=== PATIENT | female | born 1985 | race African-American/Black ===

== ENCOUNTER 2016-09-16 21:38 | Emergency (ER) | payer OTHER ==
[~2016-09-16] VITALS: Ht 157.5 cm; Wt 68.0 kg
[~2016-09-16 21:38] MED LIST: ALBUTEROL SULF8.5 GM INH; ATARAX25 MG ORAL; AUGMENTIN 875-1 EAC1 ORAL; AZITHROMYCIN250 MG ORAL; BENADRYL25 MG PO; BENTYL10 MG ORAL; CHERATUSSIN AC118 ML PO; FERROUS SULFAT325 MG ORAL; IBUPROFEN600 MG ORAL; IBUPROFEN800 M1 PO; IBUPROFEN800 MG ORAL; MELOXICAM15 MG PO; NKM; NORCO 5-325 TA1 EACH ORAL; ORTHO NOVUM ORAL; PERCOCET 5-3251 EACH ORAL; PHENTERMINE H37.5 MG PO; PREDNISONE20 MG ORAL; RANITIDINE HCL150 MG ORAL; REGLAN10 MG ORAL; TYLENOL EXTRA500 MG ORAL; VITAMIN B-1100 MG ORAL; ZANTAC150 MG ORAL; ZITHROMAX250 MG ORAL; ZOFRAN ODT4 MG ORAL; ZOFRAN4 MG ORAL
[2016-09-16 21:53] VITALS: BP 158/100
[2016-09-16] MEDS ORDERED: AMOXICILLIN500 MG ORAL (22:12)
[2016-09-16] MEDS ORDERED: HYDROCODON-ACE1 EA15 ORAL (22:12)
--- NOTE | 2016-09-16 22:13 | Emergency Room Report ---
History of Present Illness General Chief Complaint: Toothache Source: Patient Present Illness HPI Is a 31-year-old female who presents with chief complaint of dental pain. Localized to the right upper second molar. Pain is 10 out of 10. Onset for last day. Radiating to her ear. She fell her tooth being loose. Worse with cold and hot liquid. She said she has an appointment the dentist tomorrow. Denies any other complaint. [id number] medication not helping. Allergies: Coded Allergies: No Known Allergies (Unverified , 04/13/13) Patient History Past Medical History: see triage record, old chart reviewed Past Surgical History: none Pertinent Family History: none Social History: Reports: smoking Last Menstrual Period: 09/01/16 Now: No Immunizations: other Reviewed Nursing Documentation: PMH: Agreed, PSxH: Agreed Nursing Documentation-PMH Past Medical History: No History, Except For Hx Cardiac Problems: No Hx Hypertension: No Hx Pacemaker: No Hx Asthma: No Hx COPD: No Hx Diabetes: No Hx Cancer: No - APPENDECTOMY Hx Gastrointestinal Problems: Yes - Pancreatitis Hx Dialysis: No Hx Neurological Problems: No Hx Cerebrovascular Accident: No Hx Seizures: No Review of Systems Eye: Denies: blurred vision, eye pain ENT: Denies: ear pain, nose congestion, throat swelling Respiratory: Denies: cough, shortness of breath Cardiovascular: Denies: chest pain, palpitations Gastrointestinal: Denies: abdominal pain, diarrhea, nausea, vomiting Musculoskeletal: Denies: back pain, joint pain Skin: Denies: rash Neurological: Denies: headache, numbness Endocrine: Denies: increased thirst, increased urine Hematologic/Lymphatic: Denies: easy bruising All Other Systems: negative except mentioned in HPI Physical Exam Vital Signs Date Time Temp Pulse Resp B/P Pulse Ox O2 Delivery O2 Flow Rate FiO2 09/16/16 21:49 98.2 77 16 158/100 99 Room Air vitals with hypertension Sp02 EP Interpretation: reviewed, normal General Appearance: well appearing, no apparent distress, alert Head: normocephalic, atraumatic Eyes: bilateral eye EOMI, bilateral eye PERRL ENT: hearing grossly normal, normal pharynx, other - Oropharynx: Dental decay over the first and second right upper molars. Percussive tenderness. No abscess noted. Neck: full range of motion, supple, no meningismus Respiratory: chest non-tender, lungs clear, normal breath sounds Cardiovascular #1: regular rate, rhythm, no murmur Gastrointestinal: normal bowel sounds, non tender, no mass, no organomegaly, no bruit, non-distended Musculoskeletal: back normal, gait/station normal, normal range of motion Psychiatric: mood/affect normal Skin: warm/dry Procedures Additional Procedure Procedure Narrative Procedure: Dental block Indication: Dental pain Description: I did a local dental block with 1% lidocaine without epinephrine. A total of 3 mL injected. Patient tolerated procedure without a problem. Medical Decision Making Diagnostic Impression: Primary Impression: Toothache Additional Impression: Dental abscess ER Course Patient presents with dental pain. We'll put on antibiotics. No evidence of abscess that can be I&D. No evidence of sepsis. We'll discharge him. Last Vital Signs Date Time Temp Pulse Resp B/P Pulse Ox O2 Delivery O2 Flow Rate FiO2 09/16/16 21:49 98.2 77 16 158/100 99 Room Air Status: improved Disposition: HOME, SELF-CARE Condition: Stable Scripts Hydrocodone/Acetaminophen 5-325* (HYDROCODONE/ACETAMINOPHEN 5-325*) 1 Each Tablet 1 TAB ORAL Q6H Y for For Pain, #20 TAB 0 Refills Prov: GARY RICHARDS M.D. 09/16/16 Amoxicillin* (AMOXIL*) 500 Mg Capsule 500 MG ORAL THREE TIMES A DAY, #21 CAP Prov: GARY RICHARDS M.D. 09/16/16 Patient Instructions: Dental Pain Additional Instructions: Followup with dentist BARON. Return if worsening symptoms. GARY RICHARDS M.D. Sep 16, 2016 22:13
[2016-09-16 22:19] VITALS: BP 158/100
== END 2016-09-16 22:19 | disposition home or self-care (01) ==
LOC: EMR 22:00
DX: K04.7 Periapical abscess without sinus (principal); F17.200 Nicotine dependence, unspecified, uncomplicated
CPT/HCPCS: 99284

== ENCOUNTER 2016-09-26 09:49 | Emergency (ER) | payer OTHER ==
[~2016-09-26] VITALS: Ht 157.5 cm; Wt 68.0 kg
[~2016-09-26 09:49] MED LIST changes: +AMOXICILLIN500 MG ORAL; +HYDROCODON-ACE1 EA15 ORAL
[2016-09-26] MEDS ORDERED: Famotidine 20 MG/ 2ML VIAL IVP ONE (10:30)
[2016-09-26] MEDS ORDERED: Morphine Sulfate 4mg/ml Inj IVP ONE (10:30)
[2016-09-26 10:51] VITALS: BP 136/91
[2016-09-26] MEDS ORDERED: Lidocaine HCl 2% Jelly 5ml Tube TOPIC ONE (11:00)
[2016-09-26 11:05] LABS: BASOPHILS % (AUTO) 1.9 % (0.0-2.0); EOSINOPHILS % (AUTO) 8.1 % (0.0-3.0); MEAN CORPUSCULAR HEMOGLOBIN 29.1 PG (27.0-31.0); MEAN CORPUSCULAR HGB CONC 32.7 G/DL (32.0-36.0); MEAN CORPUSCULAR VOLUME 89 FL (80-99); MEAN PLATELET VOLUME 6.7 FL (6.5-10.1); MONOCYTES % (AUTO) 7.6 % (1.0-10.0); NEUTROPHILS % (AUTO) 53.5 % (45.0-75.0); PLATELET COUNT 317 K/UL (150-450); RED BLOOD COUNT 4.05 M/UL (4.20-5.40); RED CELL DISTRIBUTION WIDTH 11.9 % (11.6-14.8); WHITE BLOOD COUNT 6.5 K/UL (4.8-10.8)
[2016-09-26 11:16] LABS: ALANINE AMINOTRANSFERASE 7 U/L (3-33); ANION GAP 17 (5-15); ASPARTATE AMINO TRANSFERASE 24 U/L (5-40); CARBON DIOXIDE 21 mEQ/L (20-30); CHLORIDE 99 mEQ/L (98-107); CREATININE 0.6 mg/dL (0.5-0.9); GLOMERULAR FILTRATION RATE > 60 mL/min (>60); HEMOLYSIS 125; LIPASE 22 U/L (< 60); POTASSIUM 4.3 mEQ/L (3.4-4.9); SODIUM 137 mEQ/L (135-145); TOTAL PROTEIN 6.6 g/dL (6.6-8.7)
[2016-09-26 11:18] LABS: APPEARANCE,URINE CLEAR
[2016-09-26 11:19] LABS: KETONES,URINE NEGATIVE (NEGATIVE); LEUKOCYTE ESTERASE ,URINE NEGATIVE (NEGATIVE); NITRITE,URINE NEGATIVE (NEGATIVE); PROTEIN,URINE NEGATIVE (NEGATIVE); UROBILINOGEN,URINE NORMAL MG/DL (0.0-1.0)
[2016-09-26] MEDS ORDERED: ZOFRAN ODT4 MG ORAL (11:37)
[2016-09-26] MEDS ORDERED: RANITIDINE HCL150 MG ORAL (11:37)
[2016-09-26] MEDS ORDERED: ACETAMINOPHEN-1 EAC1 ORAL (11:37)
[2016-09-26 11:53] VITALS: BP 128/87
[2016-09-26 11:55] VITALS: BP 128/87
--- NOTE | 2016-09-27 09:23 | Emergency Room Report ---
History of Present Illness General Chief Complaint: Abdominal Pain Source: Patient Present Illness HPI 31-year-old female presents ED any abdominal pain with nausea and vomiting. Patient states she woke up around 4 AM with tooth pain. Took Advil and states shortly after she developed epigastric pain with nausea and vomiting. Pain is sharp. 10 out of 10. Nonradiating. No aggravating relieving factors. Patient states she drank alcohol last night. States she has history of pancreatitis. Denies drug use. No aggravating relieving factors. Denies any other associated symptoms Allergies: Coded Allergies: IBUPROFEN (Verified Allergy, Mild, 09/26/16) Patient History Past Medical History: other - pancreatitis Past Surgical History: none Pertinent Family History: none Social History: Denies: alcohol use, drug use, smoking Last Menstrual Period: 09/01/2016 Now: No Immunizations: UTD Reviewed Nursing Documentation: PMH: Agreed, PSxH: Agreed Nursing Documentation-PMH Past Medical History: No History, Except For Hx Cardiac Problems: No Hx Hypertension: No Hx Pacemaker: No Hx Asthma: No - Bronchitis Hx COPD: No Hx Diabetes: No Hx Cancer: No - APPENDECTOMY Hx Gastrointestinal Problems: Yes - Pancreatitis Hx Dialysis: No Hx Neurological Problems: No Hx Cerebrovascular Accident: No Hx Seizures: No Review of Systems All Other Systems: negative except mentioned in HPI Physical Exam Vital Signs Date Time Temp Pulse Resp B/P Pulse Ox O2 Delivery O2 Flow Rate FiO2 09/26/16 09:52 98.1 70 14 136/91 100 Room Air Sp02 EP Interpretation: reviewed, normal General Appearance: alert, GCS 15, non-toxic, mild distress Head: normocephalic, atraumatic Eyes: bilateral eye PERRL, bilateral eye normal inspection ENT: hearing grossly normal, normal pharynx, no angioedema, normal voice, other - poor dentition. multiple dental caries Neck: normal inspection Respiratory: chest non-tender, lungs clear, normal breath sounds, speaking full sentences Cardiovascular #1: regular rate, rhythm, no edema Gastrointestinal: normal bowel sounds, soft, non-distended, no guarding, no rebound, tenderness Rectal: deferred Genitourinary: no CVA tenderness Musculoskeletal: normal inspection Neurologic: alert, oriented x3, responsive, motor strength/tone normal, sensory intact, speech normal Psychiatric: normal inspection Skin: normal inspection Lymphatic: normal inspection Medical Decision Making Diagnostic Impression: Primary Impression: Tooth pain Additional Impression: Gastritis Qualified Codes: K29.20 - Alcoholic gastritis without bleeding ER Course Hospital Course 31-year-old F presents to ED with epigastric pain with N/V. differential diagnosis: gastritis, cholecystits, pancreatitis Clinical course Patient placed on stretcher. On electronic device monitor. After initial history and physical I ordered labs, IV fluids, morphien, pepcid and Zantac Labs - no leukocytosis, no electrolyte abnormalities, LFTs normal, lipase normal , UA unremarkable Upon reassessment, patient states pain has improved. findings consistent with gastritis I feel this is a highly complex case requiring extensive working including EKG/ Rhythm strip, Xray/CT/US, Blood/urine lab work, repeat exams while in ED, and administration of strong opiates/narcotics for pain control, admission to hospital or close patient follow up. Diagnosis - gastritis, tooth pain Stable and discharged to home with prescriptions for Zantac, zofran, tylenol # 3. Followup with PMD, dentist. Return to ED if symptoms recur or worsen Labs Test 09/26/16 10:35 White Blood Count 6.5 K/UL (4.8-10.8) Red Blood Count 4.05 M/UL (4.20-5.40) Hemoglobin 11.8 G/DL (12.0-16.0) Hematocrit 36.1 % (37.0-47.0) Mean Corpuscular Volume 89 FL (80-99) Mean Corpuscular Hemoglobin 29.1 PG (27.0-31.0) Mean Corpuscular Hemoglobin Concent 32.7 G/DL (32.0-36.0) Red Cell Distribution Width 11.9 % (11.6-14.8) Platelet Count 317 K/UL (150-450) Mean Platelet Volume 6.7 FL (6.5-10.1) Neutrophils (%) (Auto) 53.5 % (45.0-75.0) Lymphocytes (%) (Auto) 29.0 % (20.0-45.0) Monocytes (%) (Auto) 7.6 % (1.0-10.0) Eosinophils (%) (Auto) 8.1 % (0.0-3.0) Basophils (%) (Auto) 1.9 % (0.0-2.0) Urine Color Pale yellow Urine Appearance Clear Urine pH 7.0 (4.5-8.0) Urine Specific M[place] 1.010 (1.005-1.035) Urine Protein Negative (NEGATIVE) Urine Glucose (UA) Negative (NEGATIVE) Urine Ketones Negative (NEGATIVE) Urine Occult Blood Negative (NEGATIVE) Urine Nitrite Negative (NEGATIVE) Urine Bilirubin Negative (NEGATIVE) Urine Urobilinogen Normal MG/DL (0.0-1.0) Urine Leukocyte Esterase Negative (NEGATIVE) Urine HCG, Qualitative Negative Sodium Level 137 mEQ/L (135-145) Potassium Level 4.3 mEQ/L (3.4-4.9) Chloride Level 99 mEQ/L (98-107) Carbon Dioxide Level 21 mEQ/L (20-30) Anion Gap 17 (5-15) Blood Urea Nitrogen 11 mg/dL (7-23) Creatinine 0.6 mg/dL (0.5-0.9) Estimat Glomerular Filtration Rate > 60 mL/min (>60) Glucose Level 102 mg/dL (74-106) Calcium Level 9.0 mg/dL (8.6-10.2) Total Bilirubin < 0.2 mg/dL (0.0-1.2) Aspartate Amino Transf (AST/SGOT) 24 U/L (5-40) Alanine Aminotransferase (ALT/SGPT) 7 U/L (3-33) Alkaline Phosphatase 38 U/L (35-104) Total Protein 6.6 g/dL (6.6-8.7) Albumin 4.4 g/dL (3.5-5.2) Globulin 2.2 g/dL Albumin/Globulin Ratio 2.0 (1.0-2.7) Lipase 22 U/L (< 60) Last Vital Signs Date Time Temp Pulse Resp B/P Pulse Ox O2 Delivery O2 Flow Rate FiO2 09/26/16 11:55 98.1 74 17 128/87 100 Room Air Status: improved Disposition: HOME, SELF-CARE Condition: Stable Scripts Ranitidine Hcl* (ZANTAC*) 150 Mg Tablet 150 MG ORAL TWICE A DAY, #30 TAB Prov: AREN GE M.D. 09/26/16 Ondansetron Odt* (ZOFRAN ODT*) 4 Mg Tab.rapdis 4 MG ORAL Q6H Y for Nausea & Vomiting, #30 TAB 0 Refills Prov: AREN GE M.D. 09/26/16 Acetaminophen With Codeine (T#3) (TYLENOL #3 TAB*) Y Tab 1 TAB ORAL Q8H Y for For Pain, #10 TAB Prov: AREN GE M.D. 09/26/16 Patient Instructions: Gastritis, Adult, Icul-ad-Snyy AREN GE M.D. Sep 27, 2016 09:23
== END 2016-09-26 11:56 | disposition home or self-care (01) ==
LOC: EMR 10:23
DX: K08.89 Other specified disorders of teeth and supporting structures (principal); R11.2 Nausea with vomiting, unspecified; K29.20 Alcoholic gastritis without bleeding; Z88.6 Allergy status to analgesic agent; Z90.89 Acquired absence of other organs; Z87.19 Personal history of other diseases of the digestive system
CPT/HCPCS: 36415; 80053; 81003; 81025; 83690; 85025; 96374; 96375; 99284; J2270; J2405; S0028

== ENCOUNTER 2016-11-16 19:54 | Emergency (ER) | payer OTHER ==
[~2016-11-16] VITALS: Ht 154.9 cm; Wt 72.6 kg
[~2016-11-16 19:54] MED LIST changes: +ACETAMINOPHEN-1 EAC1 ORAL
[2016-11-16] MEDS ORDERED: NKM (20:19)
[2016-11-16 20:23] VITALS: BP 159/112
--- NOTE | 2016-11-16 20:30 | Emergency Room Report ---
History of Present Illness General Chief Complaint: Chest Pain Source: Patient, Medical Record Present Illness HPI Patient presents with complaints of chest pain reports that she's been having left upper chest pain off-and-on for the past 2 days She feels the pain, which is a sharp pain However she feels that she's been having increased headaches as well The headache comes on with the chest pain Patient reports loss of family member recently Otherwise denies any pleurisy denies any vomiting or diarrhea denies any back or flank pain Allergies: Coded Allergies: IBUPROFEN (Verified Allergy, Mild, 09/26/16) Patient History Past Medical History: see triage record Pertinent Family History: none Last Menstrual Period: 11/09/2016 Now: No : 2 Para: 0 Reviewed Nursing Documentation: PMH: Agreed, PSxH: Agreed Nursing Documentation-PMH Hx Cardiac Problems: No Hx Hypertension: No Hx Pacemaker: No Hx COPD: No Hx Diabetes: No Hx Gastrointestinal Problems: Yes - Pancreatitis Hx Dialysis: No Hx Neurological Problems: No Hx Cerebrovascular Accident: No Hx Seizures: No Review of Systems All Other Systems: negative except mentioned in HPI Physical Exam Vital Signs Date Time Temp Pulse Resp B/P Pulse Ox O2 Delivery O2 Flow Rate FiO2 11/16/16 20:12 98.4 87 16 159/112 99 Room Air Sp02 EP Interpretation: reviewed, normal General Appearance: well appearing, no apparent distress Head: normocephalic, atraumatic Eyes: bilateral eye EOMI, bilateral eye PERRL ENT: hearing grossly normal, normal pharynx, TMs + canals normal, uvula midline Neck: full range of motion, supple, no meningismus, no bony tend Respiratory: lungs clear, normal breath sounds, no rhonchi, no respiratory distress, no retraction, no accessory muscle use Cardiovascular #1: normal peripheral pulses, regular rate, rhythm, no edema, no gallop, no JVD, no murmur Gastrointestinal: normal bowel sounds, non tender, soft, no mass, no organomegaly, non-distended, no guarding, no hernia, no pulsatile mass, no rebound Genitourinary: no CVA tenderness Musculoskeletal: normal inspection Neurologic: oriented x3, responsive, information clerk brokerage III-XII nml as tested, motor strength/ tone normal, sensory intact Psychiatric: mood/affect normal Skin: normal color, no rash, warm/dry, palpation normal Lymphatic: normal inspection, no adenopathy Medical Decision Making Diagnostic Impression: Primary Impression: Chest pain Additional Impression: Opiate use ER Course Patient is a fairly complex patient with multiple differential to consideration including but not limited to cardiac cardiopulmonary and vascular emergencies Patient has had recent blood work done here which were negative Does not have any abdominal pain to suggest possible pancreatitis Patient also receiving large quantities of [place] by other provider Along with 2 of the providers at the ER here and concern about the patient's requirement for opiate medications from different providers And she requires close outpatient followup Please note at that time of disposition patient's family at bedside also reports that the patient was also complaining of increased dental pain And this could be potentially contributing to her headache He was notified of the patient has had presentation here previously and reported that she saw a dentist recently for extractions At this time given multiple providers with different opiate medications, pt is recommended for the patient to followup with a primary physician EKG Diagnostic Results Rate: normal Rhythm: NSR ST Segments: no acute changes Rhythm Strip Diag. Results EP Interpretation: yes Rate: 67 Rhythm: NSR, no PVC's, no ectopy Last Vital Signs Date Time Temp Pulse Resp B/P Pulse Ox O2 Delivery O2 Flow Rate FiO2 11/16/16 20:12 98.4 87 16 159/112 99 Room Air Status: unchanged Disposition: HOME, SELF-CARE Condition: Stable Patient Instructions: Nonspecific Chest Pain Additional Instructions: Patient is provided with the discharge instructions notified to follow up with primary doctor in the next 2-3 days otherwise return to the er with any worsening symptoms. Please note that this report is being documented using [employer] technology. This can lead to erroneous entry secondary to incorrect interpretation by the dictating instrument. KIRILL ANGULO D.O. Nov 16, 2016 20:30
[2016-11-16 20:40] VITALS: BP 159/112
--- NOTE | 2016-11-17 11:00 | Cardiology Report ---
APPROVED REPORT EKG Measurement Heart [id number] Normal sinus rhythm Normal ECG
== END 2016-11-16 20:50 | disposition home or self-care (01) ==
LOC: EMR 20:16
DX: R07.9 Chest pain, unspecified (principal); F11.90 Opioid use, unspecified, uncomplicated; R51 Headache; Z88.6 Allergy status to analgesic agent
CPT/HCPCS: 93005; 99283

== ENCOUNTER 2017-02-25 09:37 | Emergency (ER) | payer OTHER ==
[~2017-02-25] VITALS: Ht 157.5 cm; Wt 72.6 kg
[2017-02-25 09:59] VITALS: BP 157/101
[2017-02-25] MEDS ORDERED: Ketorolac 60mg Inj IM ONE (10:00)
[2017-02-25] MEDS ORDERED: Ketorolac 60mg Inj ONE (10:13)
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
[2017-02-25] MEDS ORDERED: NAPROXEN375 MG ORAL (12:11)
[2017-02-25] MEDS ORDERED: NORCO 5-325 TA1 EACH ORAL (12:11)
[2017-02-25] MEDS ORDERED: ROBAXIN500 MG PO (12:11)
[2017-02-25 12:27] VITALS: BP 140/94
--- NOTE | 2017-02-25 15:10 | Diagnostic Imaging Report ---
Indication: Neck Pain Findings: 3 views of the cervical spine were obtained. There is reversal of the lordosis involving the lower part of the cervical spine which may be due to muscle spasm. No acute fracture is identified. There is no definite prevertebral soft tissue swelling. The open-mouth view shows good alignment of the lateral masses with respect to the body of C2. There is narrowing of the C5-6 disc, which is probably degenerative. The study is overexposed. Impression: No acute fracture identified. Suspected muscle spasm. Narrowed C5-6 disc typical location for degenerative disc disease. Technically suboptimal exam
--- NOTE | 2017-02-25 15:10 | Diagnostic Imaging Report ---
Indication: Back pain Findings: 2 views of the thoracic spine were obtained. Normal bony mineralization and alignment are demonstrated. Vertebral body heights and intervertebral disc heights are normal. The posterior elements including the facets are unremarkable. Soft tissues are unremarkable. Impression: Negative thoracic spine series
== END 2017-02-25 12:30 | disposition home or self-care (01) ==
LOC: EMR 10:09
DX: S39.012A Strain of muscle, fascia and tendon of lower back, initial encounter (principal); X50.9XXA Other and unspecified overexertion or strenuous movements or postures, initial encounter; Y92.89 Other specified places as the place of occurrence of the external cause; Z88.6 Allergy status to analgesic agent; M62.838 Other muscle spasm
CPT/HCPCS: 72040; 72070; 96372; 99284

== ENCOUNTER 2017-03-05 12:48 | Emergency (ER) | payer OTHER ==
[~2017-03-05] VITALS: Ht 157.5 cm; Wt 72.6 kg
[~2017-03-05 12:48] MED LIST changes: +NAPROXEN375 MG ORAL; +ROBAXIN500 MG PO
--- NOTE | 2017-03-05 13:59 | Emergency Room Report ---
History of Present Illness General Chief Complaint: Pain Present Illness HPI 31 YO Female The emergency department complaining of continued discomfort described as tightness and dull pain in the musculature of the neck since February 19. Patient states onset of her symptoms was after helping to move an exam table at work. Patient states she was evaluated here in the emergency department several days later prescribed muscle relaxers in addition to anti- inflammatory medications. Patient states she's been taking the medications and has been utilizing soft cervical collar with minimal to no relief of her symptoms. 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 Patient states multiple attempts to receive medical evaluation followup have been unsuccessful through her work. She denies new trauma or fall. She denies nausea, vomiting, fevers, chills, bruising, erythema. Reports intermittent sensation of electrical shooting pains, right arm. Denies numbness tingling or loss of sensation or gross motor movements of the extremities, incontinence of bowel or bladder. Denies CP, Palpitations, LOC, AMS, dizziness, Changes in Vision, Sensation, paresthesias, or a sudden severe headache. Allergies: Coded Allergies: IBUPROFEN (Verified Allergy, Mild, 09/26/16) Patient History Past Medical History: see triage record Past Surgical History: none Pertinent Family History: none Now: No Immunizations: UTD Reviewed Nursing Documentation: PMH: Agreed, PSxH: Agreed Nursing Documentation-PMH Hx Cardiac Problems: No Hx Hypertension: No Hx Pacemaker: No Hx COPD: No Hx Diabetes: No Hx Gastrointestinal Problems: Yes - Pancreatitis Hx Dialysis: No Hx Neurological Problems: No Hx Cerebrovascular Accident: No Hx Seizures: No Review of Systems All Other Systems: negative except mentioned in HPI Physical Exam Vital Signs Date Time Temp Pulse Resp B/P Pulse Ox O2 Delivery O2 Flow Rate FiO2 03/05/17 13:09 98.2 75 20 148/97 99 Room Air Sp02 EP Interpretation: reviewed, normal General Appearance: no apparent distress, alert, GCS 15, non-toxic Head: normocephalic, atraumatic Eyes: bilateral eye PERRL, bilateral eye normal inspection ENT: hearing grossly normal, normal pharynx, no angioedema, normal voice Neck: full range of motion - with pain upon turning to both sides, no bony tend , supple/symm/no masses, tender lateral Respiratory: lungs clear, normal breath sounds, speaking full sentences Cardiovascular #1: regular rate, rhythm, no edema, normal capillary refill Musculoskeletal: back normal, gait/station normal, normal range of motion, non- tender Neurologic: alert, oriented x3, responsive, motor strength/tone normal, sensory intact, cerebellar normal, normal gait, speech normal, 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 Del Cid is my supervising Physician whom patient management has been discussed with. Diagnostic Impression: Primary Impression: Cervical muscle strain Qualified Codes: S16.1XXA - Strain of muscle, fascia and tendon at neck level , initial encounter Additional Impressions: Muscle strain Muscle spasm of back ER Course 31 YO Female The emergency department complaining of continued discomfort described as tightness and dull pain in the musculature of the neck since February 19. Patient states onset of her symptoms was after helping to move an exam table at work. Patient states she was evaluated here in the emergency department several days later prescribed muscle relaxers in addition to anti- inflammatory medications. Patient states she's been taking the medications and has been utilizing soft cervical collar with minimal to no relief of her symptoms. 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 Patient states multiple attempts to receive medical evaluation followup have been unsuccessful through her work. She denies new trauma or fall. She denies nausea, vomiting, fevers, chills, bruising, erythema. Reports intermittent sensation of electrical shooting pains, right arm. Denies numbness tingling or loss of sensation or gross motor movements of the extremities, incontinence of bowel or bladder. Denies CP, Palpitations, LOC, AMS, dizziness, Changes in Vision, Sensation, paresthesias, or a sudden severe headache. Ddx considered but are not limited to Fracture, dislocation, contusion, Sprain/ Strain/Spasm, radiculopathy. Vital signs: are WNL, pt. is afebrile H&PE are most consistent with continues cervical strain with intermittent radicular symptoms. ORDERS: - X-ray's not warranted no midline bony ttp. ED INTERVENTIONS: -Soma PO - d/w pt. that she needs to follow up with a primary care provider and that MRI may be warranted. pt. is given list of free/reduced cost clinics for follow up if her workers comp. insurance does not provide follow up instructions. d.w pt that I will place her on light duty, and that return to full duty is contingent on proper evaluation from primary care provider and release back to full duty. DISCHARGE: At this time pt. is stable for d/c to home. Will provide printed patient care instructions, and any necessary prescriptions. Care plan and follow up instructions have been discussed with the patient prior to discharge. Last Vital Signs Date Time Temp Pulse Resp B/P Pulse Ox O2 Delivery O2 Flow Rate FiO2 03/05/17 13:09 98.2 75 20 148/97 99 Room Air Disposition: HOME, SELF-CARE Condition: Stable Scripts Ibuprofen* (MOTRIN*) 600 Mg Tablet 600 MG ORAL THREE TIMES A DAY, #30 TAB 0 Refills Prov: Rebeka Edward 03/05/17 Cyclobenzaprine Hcl* (FLEXERIL*) 10 Mg Tablet 10 MG ORAL THREE TIMES A DAY for 7 Days, #21 TAB Prov: Rebeka Edward 03/05/17 Referrals: NOT CHOSEN IPA/,REFERRING (PCP) Departure Forms: Return to Work Return to Work Date: Mar 06, 2017 Work Restrictions: No Heavy Lifting, No Prolonged Standing Other Restrictions: limited use of neck : twisting/turning, - until medically cleared. Patient Instructions: Muscle Strain, [id number] Additional Instructions: Take medications as directed. Follow up with a Worker's Compensation Primary Care Provider in 3-5 days, even if your symptoms have resolved. will require return to full- duty evaluation. If your symptoms persist, physical therapy or MRI may be warranted. Return sooner to ED if new symptoms occur, or current symptoms become worse. Do not drink alcohol, drive, or operate heavy machinery while taking Muscle Relaxers as this may cause drowsiness. - Please note that this Emergency Department Report was dictated using [employer] pulling machine operator technology software, occasionally this can lead to erroneous entry secondary to interpretation by the dictation equipment. Rebeka Edward Mar 05, 2017 13:59
[2017-03-05] MEDS ORDERED: CYCLOBENZAPRINE10 MG ORAL (14:00)
[2017-03-05] MEDS ORDERED: IBUPROFEN600 MG ORAL (14:00)
[2017-03-05 14:16] VITALS: BP 141/99
== END 2017-03-05 14:16 | disposition home or self-care (01) ==
LOC: EMR 13:41
DX: S16.1XXA Strain of muscle, fascia and tendon at neck level, initial encounter (principal); Z88.6 Allergy status to analgesic agent; M62.838 Other muscle spasm; X58.XXXA Exposure to other specified factors, initial encounter; Y92.9 Unspecified place or not applicable; Y99.0 Civilian activity done for income or pay
CPT/HCPCS: 99284

== ENCOUNTER 2017-05-31 13:50 | Emergency (ER) | payer OTHER ==
[~2017-05-31] VITALS: Ht 157.5 cm; Wt 83.9 kg
[~2017-05-31 13:50] MED LIST changes: +CYCLOBENZAPRINE10 MG ORAL
[2017-05-31 14:13] VITALS: BP 117/66
[2017-05-31] MEDS ORDERED: Morphine Sulfate 4mg/ml Inj IVP ONE (14:30)
[2017-05-31 15:10] LABS: BASOPHILS % (AUTO) 1.8 % (0.0-2.0); LYMPHOCYTES % (AUTO) 29.6 % (20.0-45.0); MEAN CORPUSCULAR HGB CONC 32.5 G/DL (32.0-36.0); MEAN CORPUSCULAR VOLUME 89 FL (80-99); MEAN PLATELET VOLUME 5.9 FL (6.5-10.1); MONOCYTES % (AUTO) 6.5 % (1.0-10.0); NEUTROPHILS % (AUTO) 57.1 % (45.0-75.0); PLATELET COUNT 318 K/UL (150-450); RED BLOOD COUNT 4.49 M/UL (4.20-5.40); RED CELL DISTRIBUTION WIDTH 11.6 % (11.6-14.8); WHITE BLOOD COUNT 7.1 K/UL (4.8-10.8)
[2017-05-31 15:11] LABS: APPEARANCE,URINE CLEAR; KETONES,URINE NEGATIVE (NEGATIVE); LEUKOCYTE ESTERASE ,URINE 1+ (NEGATIVE); NITRITE,URINE NEGATIVE (NEGATIVE); PH,URINE 7 (4.5-8.0); PROTEIN,URINE 1+ (NEGATIVE); UROBILINOGEN,URINE NORMAL MG/DL (0.0-1.0)
--- NOTE | 2017-05-31 15:16 | Emergency Room Report ---
History of Present Illness General Chief Complaint: Nausea, Vomiting, and Diarrhea Source: Patient, Medical Record Present Illness HPI 32-year-old female presents ED playing of abdominal pain. States symptoms started approximately 4 AM today. Pain is sharp, epigastric, 10 out of 10, nonradiating. notes multiple episodes of vomiting. Patient states she was drinking last night. Has history of pancreatitis. Denies chest or shortness. Denies any other drug use. No other aggravating relieving factors. Denies any other associated symptoms Allergies: Coded Allergies: IBUPROFEN (Verified Allergy, Mild, 09/26/16) Patient History Past Medical History: none Past Surgical History: none Pertinent Family History: none Social History: Denies: smoking, alcohol use, drug use Last Menstrual Period: 05/29/17 Now: No Immunizations: UTD Reviewed Nursing Documentation: PMH: Agreed, PSxH: Agreed Nursing Documentation-PMH Past Medical History: No History, Except For Hx Cardiac Problems: No Hx Hypertension: No Hx Pacemaker: No Hx COPD: No Hx Diabetes: No Hx Gastrointestinal Problems: Yes - Pancreatitis Hx Dialysis: No Hx Neurological Problems: No Hx Cerebrovascular Accident: No Hx Seizures: No Review of Systems All Other Systems: negative except mentioned in HPI Physical Exam Vital Signs Date Time Temp Pulse Resp B/P (MAP) Pulse Ox O2 Delivery O2 Flow Rate FiO2 05/31/17 14:00 97.9 122 26 150/97 98 Room Air Sp02 EP Interpretation: reviewed, normal General Appearance: no apparent distress, alert, GCS 15, non-toxic Head: normocephalic, atraumatic Eyes: bilateral eye normal inspection, bilateral eye PERRL ENT: hearing grossly normal, normal pharynx, no angioedema, normal voice Neck: full range of motion, supple/symm/no masses Respiratory: chest non-tender, lungs clear, normal breath sounds, speaking full sentences Cardiovascular #1: regular rate, rhythm, no edema Cardiovascular #2: 2+ carotid (R), 2+ carotid (L), 2+ radial (R), 2+ radial (L) , 2+ dorsalis pedis (R), 2+ dorsalis pedis (L) Gastrointestinal: normal bowel sounds, soft, non-distended, no guarding, no rebound, tenderness - epigastric Rectal: deferred Genitourinary: normal inspection, no CVA tenderness Musculoskeletal: back normal, gait/station normal, normal range of motion, non- tender Neurologic: alert, oriented x3, responsive, motor strength/tone normal, sensory intact, speech normal Psychiatric: judgement/insight normal, memory normal, mood/affect normal, no suicidal/homicidal ideation Reflexes: 3+ bicep (R), 3+ bicep (L), 3+ tricep (R), 3+ tricep (L), 3+ knee (R) , 3+ knee (L) Skin: normal color, no rash, warm/dry, well hydrated Lymphatic: no adenopathy Medical Decision Making Diagnostic Impression: Primary Impression: Gastritis Qualified Codes: K29.20 - Alcoholic gastritis without bleeding ER Course Hospital Course 32-year-old F presents to ED with epigastric pain with N/V. differential diagnosis: gastritis, SBO, cholecystits Clinical course Patient placed on stretcher. 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 After initial history and physical I ordered labs, IV fluids, pepcid, morphine and Zantac Labs - no leukocytosis, no electrolyte abnormalities, LFTs normal Upon reassessment, patient states pain has improved. findings consistent with gastritis I feel this is a highly complex case requiring extensive working including EKG/ Rhythm strip, Xray/CT/US, Blood/urine lab work, repeat exams while in ED, and administration of strong opiates/narcotics for pain control, admission to hospital or close patient follow up. Diagnosis - gastritis Stable and discharged to home with prescriptions for Zantac, zofran. Followup with PMD. Return to ED if symptoms recur or worsen Labs Test 05/31/17 14:55 White Blood Count 7.1 K/UL (4.8-10.8) Red Blood Count 4.49 M/UL (4.20-5.40) Hemoglobin 13.0 G/DL (12.0-16.0) Hematocrit 40.0 % (37.0-47.0) Mean Corpuscular Volume 89 FL (80-99) Mean Corpuscular Hemoglobin 29.0 PG (27.0-31.0) Mean Corpuscular Hemoglobin Concent 32.5 G/DL (32.0-36.0) Red Cell Distribution Width 11.6 % (11.6-14.8) Platelet Count 318 K/UL (150-450) Mean Platelet Volume 5.9 FL (6.5-10.1) Neutrophils (%) (Auto) 57.1 % (45.0-75.0) Lymphocytes (%) (Auto) 29.6 % (20.0-45.0) Monocytes (%) (Auto) 6.5 % (1.0-10.0) Eosinophils (%) (Auto) 5.0 % (0.0-3.0) Basophils (%) (Auto) 1.8 % (0.0-2.0) Urine Color Pale yellow Urine Appearance Clear Urine pH 7 (4.5-8.0) Urine Specific [place] 1.010 (1.005-1.035) Urine Protein 1+ (NEGATIVE) Urine Glucose (UA) Negative (NEGATIVE) Urine Ketones Negative (NEGATIVE) Urine Occult Blood 5+ (NEGATIVE) Urine Nitrite Negative (NEGATIVE) Urine Bilirubin Negative (NEGATIVE) Urine Urobilinogen Normal MG/DL (0.0-1.0) Urine Leukocyte Esterase 1+ (NEGATIVE) Urine RBC 5-10 /HPF (0 - 2) Urine WBC 5-10 /HPF (0 - 2) Urine Squamous Epithelial Cells Few /LPF (NONE/OCC) Urine Amorphous Sediment Few /LPF (NONE) Urine Bacteria Few /HPF (NONE) Urine Mucus Few /LPF (NONE/OCC) Urine HCG, Qualitative Negative Sodium Level 138 MMOL/L (136-145) Potassium Level 4.7 MMOL/L (3.5-5.1) Chloride Level 104 MMOL/L (98-107) Carbon Dioxide Level 22 MMOL/L (21-32) Anion Gap 12 (5-15) Blood Urea Nitrogen 11 mg/dL (7-18) Creatinine 0.6 MG/DL (0.55-1.30) Estimat Glomerular Filtration Rate > 60 mL/min (>60) Glucose Level 94 MG/DL (74-106) Calcium Level 9.3 MG/DL (8.5-10.1) Total Bilirubin 0.4 MG/DL (0.2-1.0) Aspartate Amino Transf (AST/SGOT) 40 U/L (15-37) Alanine Aminotransferase (ALT/SGPT) 12 U/L (12-78) Alkaline Phosphatase 44 U/L (46-116) Total Protein 8.0 G/DL (6.4-8.2) Albumin 4.1 G/DL (3.4-5.0) Globulin 3.9 g/dL Albumin/Globulin Ratio 1.1 (1.0-2.7) Lipase 86 U/L (73-393) Last Vital Signs Date Time Temp Pulse Resp B/P (MAP) Pulse Ox O2 Delivery O2 Flow Rate FiO2 05/31/17 14:00 97.9 122 26 150/97 98 Room Air Status: improved Disposition: HOME, SELF-CARE Condition: Stable Scripts Ondansetron Odt* (ZOFRAN ODT*) 4 Mg Tab.rapdis 4 MG ORAL Q6H Y for Nausea & Vomiting, #30 TAB 0 Refills Prov: AREN GE M.D. 05/31/17 Ranitidine Hcl* (ZANTAC*) 150 Mg Tablet 150 MG ORAL TWICE A DAY, #30 TAB Prov: AREN GE M.D. 05/31/17 AREN GE M.D. May 31, 2017 15:16
[2017-05-31 15:24] LABS: AMORPHOUS SEDIMENT,UR FEW /LPF; BACTERIA,URINE FEW /HPF; MUCUS,URINE FEW /LPF (NONE/OCC); SQUAMOUS EPITHELIAL CELL,UR FEW /LPF (NONE/OCC)
[2017-05-31 16:16] LABS: ALANINE AMINOTRANSFERASE 12 U/L (12-78); ALBUMIN/GLOBULIN RATIO 1.1 (1.0-2.7); ANION GAP 12 (5-15); ASPARTATE AMINO TRANSFERASE 40 U/L (15-37); CALCIUM 9.3 MG/DL (8.5-10.1); CARBON DIOXIDE 22 MMOL/L (21-32); CHLORIDE 104 MMOL/L (98-107); CREATININE 0.6 MG/DL (0.55-1.30); GLOMERULAR FILTRATION RATE > 60 mL/min (>60); LIPASE 86 U/L (73-393); POTASSIUM 4.7 MMOL/L (3.5-5.1); SODIUM 138 MMOL/L (136-145)
[2017-05-31] MEDS ORDERED: RANITIDINE HCL150 MG ORAL (16:25)
[2017-05-31] MEDS ORDERED: ZOFRAN ODT4 MG ORAL (16:25)
[2017-05-31 16:35] VITALS: BP 120/72
[2017-05-31] MEDS ORDERED: LORazepam Inj 2mg/ml 1ml IV PRN (16:45)
[2017-05-31] MEDS ORDERED: Miralax 17gm pkt ORAL PRN (16:45)
[2017-05-31] MEDS ORDERED: Nitroglycerin Subl 0.4mg tab SL PRN (16:45)
[2017-05-31] MEDS ORDERED: Mylanta II UD 30ml ORAL PRN (16:45)
[2017-05-31] MEDS ORDERED: Morphine Sulfate 2mg/ml Inj IVP PRN (16:45)
[2017-05-31] MEDS ORDERED: Metoclopramide 10mg/2ml Inj IVP PRN (16:45)
[2017-05-31] MEDS ORDERED: D5 1/2NS 1,000 ML IV SCH (17:40)
[2017-05-31] MEDS ORDERED: Heparin 5000 units/ml inj SUBQ SCH (21:00)
[2017-06-01] MEDS ORDERED: Pantoprazole Inj IV SCH (09:00)
== END 2017-05-31 20:45 | disposition home or self-care (01) ==
LOC: EMR 16:20
DX: K29.70 Gastritis, unspecified, without bleeding (principal); Z88.6 Allergy status to analgesic agent
CPT/HCPCS: 36415; 80053; 81003; 81025; 83690; 85025; 96361; 96372; 96374; 96375; 96376; 99284; J2270; J2405; S0028

== ENCOUNTER 2017-10-22 12:06 | Emergency (ER) | payer OTHER ==
[~2017-10-22] VITALS: Ht 154.9 cm; Wt 81.6 kg
[2017-10-22 12:11] VITALS: BP 131/89
--- NOTE | 2017-10-22 12:38 | Emergency Room Report ---
History of Present Illness General Chief Complaint: Flu Like Symptoms Source: Patient, Medical Record Present Illness HPI 32-year-old female presents to the emergency department complaining of 7 on a 10 in severity sore throat with cough and chills in addition to nasal congestion and rhinorrhea x3 days. Reports bilateral ear pain. Denies high fevers, lethargy, neck pain/stiffness, irritability, photophobia dehydration, N/ V/D. Reports multiple ill contacts with URI symptoms at work. Denies Cp, Palpitations, LOC, AMS, seizures, paresthesias, or changes in Hearing or vision , no Sudden severe KNOX. Allergies: Coded Allergies: IBUPROFEN (Verified Allergy, Mild, 09/26/16) Patient History Past Medical History: see triage record Past Surgical History: none Pertinent Family History: none Last Menstrual Period: 10/08/17 Reviewed Nursing Documentation: PMH: Agreed, PSxH: Agreed Nursing Documentation-PMH Past Medical History: No History, Except For Hx Cardiac Problems: No Hx Hypertension: No Hx Pacemaker: No Hx COPD: No Hx Diabetes: No Hx Gastrointestinal Problems: Yes - Pancreatitis Hx Dialysis: No Hx Neurological Problems: No Hx Cerebrovascular Accident: No Hx Seizures: No Review of Systems All Other Systems: negative except mentioned in HPI Physical Exam Vital Signs Date Time Temp Pulse Resp B/P (MAP) Pulse Ox O2 Delivery O2 Flow Rate FiO2 10/22/17 12:11 98.1 80 18 131/89 97 Room Air 98.1 Sp02 EP Interpretation: reviewed, normal General Appearance: no apparent distress, alert, GCS 15, non-toxic Head: normocephalic, atraumatic Eyes: bilateral eye normal inspection, bilateral eye PERRL ENT: hearing grossly normal, normal voice, TMs + canals normal, uvula midline, nasal congestion, pharyngeal erythema, other - no tonsillar or pharyngeal exudates Neck: full range of motion, no meningismus, no bony tend Respiratory: chest non-tender, lungs clear, normal breath sounds, no respiratory distress, no wheezing, speaking full sentences Cardiovascular #1: regular rate, rhythm Musculoskeletal: back normal, gait/station normal, normal range of motion, non- tender Neurologic: alert, oriented x3, responsive, motor strength/tone normal, sensory intact, speech normal, grossly normal Psychiatric: judgement/insight normal Skin: normal color, no rash, warm/dry, well hydrated Lymphatic: no adenopathy Medical Decision Making PA Attestation Dr. wiseman is my supervising Physician whom patient management has been discussed with. Diagnostic Impression: Primary Impression: URI (upper respiratory infection) Qualified Codes: J06.9 - Acute upper respiratory infection, unspecified Additional Impressions: Sore throat (viral) Nasal congestion with rhinorrhea ER Course 32-year-old female presents to the emergency department complaining of 7 on a 10 in severity sore throat with cough and chills in addition to nasal congestion and rhinorrhea x3 days. Reports bilateral ear pain. Denies high fevers, lethargy, neck pain/stiffness, irritability, photophobia dehydration, N/ V/D. Reports multiple ill contacts with URI symptoms at work. Denies Cp, Palpitations, LOC, AMS, seizures, paresthesias, or changes in Hearing or vision , no Sudden severe KNOX. Ddx considered but are not limited to URI, pneumonia, PE, strep pharyngitis, meningitis. Vital signs: Pt. is afebrile, the remaining VS are WNL H&PE are most consistent with URI- no meningeal signs, oropharynx is not involved, no evidence of bacterial infection at this time. ORDERS: none required at this time, the diagnosis is clinical ED INTERVENTIONS: None required at this time. --PT. EDUCATION: Discussed antibiotic resistance with inappropriate prescribing of antibiotics for viral illnesses. Discussed signs and symptoms to indicate viral illness versus bacterial illness. DISCHARGE: At this time pt. is stable for d/c to home. Will provide printed patient care instructions, and any necessary prescriptions. Care plan and follow up instructions have been discussed with the patient prior to discharge. Last Vital Signs Date Time Temp Pulse Resp B/P (MAP) Pulse Ox O2 Delivery O2 Flow Rate FiO2 10/22/17 12:11 98.1 80 18 131/89 97 Room Air 98.1 Disposition: HOME, SELF-CARE Condition: Stable Scripts Naproxen* (NAPROXEN*) 500 Mg Tablet. 500 MG ORAL TWICE A DAY for 7 Days, #14 TAB Prov: Rebeka Edward P.A. 10/22/17 Loratadine/Pseudoephedrine (CLARITIN-D 12 HOUR TABLET) 1 Each Tab.er.12h 1 TAB ORAL EVERY 12 HOURS for 7 Days, #14 TAB Prov: Rebeka Edward P.A. 10/22/17 Codeine/Promethazine Hcl* (PROMETHAZINE-CODEINE SYRUP*) 118 Ml Syrup 5 ML ORAL Q6H Y for For Cough, #120 ML 0 Refills Prov: Rebeka Edward 10/22/17 Patient Instructions: Upper Respiratory Infection, Adult, [id number] Additional Instructions: Take medications as directed. Follow up with a Primary Care Provider in 3-5 days, even if your symptoms have resolved. --Please review list of primary care clinics, if you do not already have a primary care provider Return sooner to ED if new symptoms occur, or current symptoms become worse. Do not drink alcohol, drive, or operate heavy machinery while taking Cough Syrup as this may cause drowsiness. - Please note that this Emergency Department Report was dictated using [employer] technology software, occasionally this can lead to erroneous entry secondary to interpretation by the dictation equipment. Rebeka Edward Oct 22, 2017 12:37
[2017-10-22] MEDS ORDERED: PROMETHAZINE-C118 M1 ORAL (12:40)
[2017-10-22] MEDS ORDERED: CLARITIN-D 121 EAC1 ORAL (12:40)
[2017-10-22] MEDS ORDERED: NAPROXEN500 M1 ORAL (12:40)
[2017-10-22 12:48] VITALS: BP 131/89
== END 2017-10-22 12:50 | disposition home or self-care (01) ==
LOC: EMR 12:36
DX: J06.9 Acute upper respiratory infection, unspecified (principal); J02.8 Acute pharyngitis due to other specified organisms; B97.89 Other viral agents as the cause of diseases classified elsewhere; Z88.6 Allergy status to analgesic agent
CPT/HCPCS: 99284

== ENCOUNTER 2018-08-25 11:33 | Emergency (ER) | payer OTHER ==
[~2018-08-25] VITALS: Ht 154.9 cm; Wt 70.3 kg
[~2018-08-25 11:33] MED LIST changes: +CLARITIN-D 121 EAC1 ORAL; +NAPROXEN500 M1 ORAL; +PROMETHAZINE-C118 M1 ORAL
[2018-08-25 11:46] VITALS: BP 137/82
--- NOTE | 2018-08-25 11:46 | NUR ---
ED Nurse Note: A/Ox4. ambulated in to ER due to upper abdominal pain 10/10 radiating to back since last night. Pt reports that she drank a lot and smoke marijuana about four hours ago. Hx. pancreatitis in 2017.
[2018-08-25] MEDS ORDERED: Morphine Sulfate 4mg/ml Inj (IV/IM USE ONLY) IVP ONE (12:00)
[2018-08-25 13:05] LABS: EOSINOPHILS % (AUTO) 9.8 % (0.0-3.0); HEMATOCRIT 40.7 % (37.0-47.0); HEMOGLOBIN 13.1 G/DL (12.0-16.0); LYMPHOCYTES % (AUTO) 27.2 % (20.0-45.0); MEAN CORPUSCULAR VOLUME 90 FL (80-99); MONOCYTES % (AUTO) 6.3 % (1.0-10.0); NEUTROPHILS % (AUTO) 54.7 % (45.0-75.0); PLATELET COUNT 286 K/UL (150-450); RED BLOOD COUNT 4.52 M/UL (4.20-5.40); RED CELL DISTRIBUTION WIDTH 12.5 % (11.6-14.8); WHITE BLOOD COUNT 5.9 K/UL (4.8-10.8)
[2018-08-25 13:06] LABS: APPEARANCE,URINE CLEAR; BILIRUBIN, URINE NEGATIVE (NEGATIVE); GLUCOSE, URINE (UA) NEGATIVE (NEGATIVE); KETONES,URINE 1+ (NEGATIVE); LEUKOCYTE ESTERASE ,URINE 1+ (NEGATIVE); NITRITE,URINE NEGATIVE (NEGATIVE); PH,URINE 6 (4.5-8.0); PROTEIN,URINE 1+ (NEGATIVE); UROBILINOGEN,URINE NORMAL MG/DL (0.0-1.0)
[2018-08-25 13:08] LABS: COLOR,URINE YELLOW
[2018-08-25 13:10] LABS: ANION GAP 11 mmol/L (5-15); BLOOD UREA NITROGEN 10 mg/dL (7-18); CALCIUM 9.7 MG/DL (8.5-10.1); CARBON DIOXIDE 24 MMOL/L (21-32); CHLORIDE 101 MMOL/L (98-107); CREATININE 0.8 MG/DL (0.55-1.30); POTASSIUM 3.8 MMOL/L (3.5-5.1); SODIUM 136 MMOL/L (136-145)
[2018-08-25 13:15] LABS: ALANINE AMINOTRANSFERASE 19 U/L (12-78); ALBUMIN 3.9 G/DL (3.4-5.0); ALBUMIN/GLOBULIN RATIO 1.1 (1.0-2.7); ALKALINE PHOSPHATASE 72 U/L (46-116); ASPARTATE AMINO TRANSFERASE 28 U/L (15-37); BILIRUBIN,TOTAL 0.3 MG/DL (0.2-1.0)
[2018-08-25] MEDS ORDERED: ONDANSETRON ODT4 MG BC (13:53)
[2018-08-25] MEDS ORDERED: RANITIDINE HCL150 MG ORAL (13:53)
[2018-08-25] MEDS ORDERED: ACETAMINOPHEN-1 EAC1 ORAL (13:53)
[2018-08-25 14:09] VITALS: BP 135/94
--- NOTE | 2018-08-25 14:10 | NUR ---
ED Nurse Note: A/Ox4. Pt is cleared by Dr. Bridger FANG instruction, resources for alcohol clinic and prescriptions given, pt verbalized understanding. IV and ID wrist band removed. All belongings given to pt. Denies pain at this time. VSS. Pt ambulated out of ER with steady gait.
--- NOTE | 2018-08-25 14:30 | Emergency Room Report ---
History of Present Illness General Chief Complaint: Abdominal Pain Source: Patient Present Illness Allergies: Coded Allergies: IBUPROFEN (Verified Allergy, Mild, 08/25/18) Patient History Last Menstrual Period: 08/07/2018 Now: No : 3 Para: 0 Nursing Documentation-[facility] Past Medical History: No History, Except For Hx Cardiac Problems: No Hx Hypertension: No Hx Pacemaker: No Hx Diabetes: No Hx Dialysis: No Hx Neurological Problems: No Hx Cerebrovascular Accident: No Hx Seizures: No Physical Exam Vital Signs Date Time Temp Pulse Resp B/P (MAP) Pulse Ox O2 Delivery O2 Flow Rate FiO2 08/25/18 11:41 98.8 96 18 133/89 98 Room Air Medical Decision Making Diagnostic Impression: Primary Impression: Pancreatitis Qualified Codes: K85.20 - Alcohol induced acute pancreatitis without necrosis or infection ER Course Hospital Course 33-year-old female presents to ED with abdominal pain, vomiting after drinking alcohol Differential diagnoses include: gastritis, gastroenteritks, pancreatitis Clinical course Patient placed on stretcher. 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 After initial history and physical I ordered labs, IV fluids, UA, pain medication and CT scan Labs - no leukocytosis, Hb/Hct stable. electrolytes ok. Lipase > 500, LFTs ok Discussed findings with patient. Patient tolerating by mouth intake. States pain is improved. Discussed option for admission. Patient states she would prefer to be discharged at this time. Patient has had pancreatitis in the past and is aware of modified diet required. We'll provide her with pain meds, Zofran. Patient states she has a PMD. Safe for discharge close outpatient follow-up. I explained that if symptoms do not improve her vomiting persists she needs to return to the ER for admission I feel this is a highly complex case requiring extensive working including EKG/ Rhythm strip, Xray/CT/US, Blood/urine lab work, repeat exams while in ED, and administration of strong opiates/narcotics for pain control, admission to hospital or close patient follow up. Diagnosis - pancreatitis stable and discharged to home. f/u with PMD. return to ED if symptoms recur/ worsen Labs Test 08/25/18 11:50 White Blood Count 5.9 K/UL (4.8-10.8) Red Blood Count 4.52 M/UL (4.20-5.40) Hemoglobin 13.1 G/DL (12.0-16.0) Hematocrit 40.7 % (37.0-47.0) Mean Corpuscular Volume 90 FL (80-99) Mean Corpuscular Hemoglobin 28.9 PG (27.0-31.0) Mean Corpuscular Hemoglobin Concent 32.1 G/DL (32.0-36.0) Red Cell Distribution Width 12.5 % (11.6-14.8) Platelet Count 286 K/UL (150-450) Mean Platelet Volume 5.7 FL (6.5-10.1) Neutrophils (%) (Auto) 54.7 % (45.0-75.0) Lymphocytes (%) (Auto) 27.2 % (20.0-45.0) Monocytes (%) (Auto) 6.3 % (1.0-10.0) Eosinophils (%) (Auto) 9.8 % (0.0-3.0) Basophils (%) (Auto) 2.0 % (0.0-2.0) Urine Color Yellow Urine Appearance Clear Urine pH 6 (4.5-8.0) Urine Specific [place] 1.020 (1.005-1.035) Urine Protein 1+ (NEGATIVE) Urine Glucose (UA) Negative (NEGATIVE) Urine Ketones 1+ (NEGATIVE) Urine Blood Negative (NEGATIVE) Urine Nitrite Negative (NEGATIVE) Urine Bilirubin Negative (NEGATIVE) Urine Urobilinogen Normal MG/DL (0.0-1.0) Urine Leukocyte Esterase 1+ (NEGATIVE) Urine RBC 0-2 /HPF (0 - 2) Urine WBC 2-4 /HPF (0 - 2) Urine Squamous Epithelial Cells Few /LPF (NONE/OCC) Urine Bacteria Few /HPF (NONE) Urine Mucus Few /LPF (NONE/OCC) Urine HCG, Qualitative Negative (NEGATIVE) Sodium Level 136 MMOL/L (136-145) Potassium Level 3.8 MMOL/L (3.5-5.1) Chloride Level 101 MMOL/L (98-107) Carbon Dioxide Level 24 MMOL/L (21-32) Anion Gap 11 mmol/L (5-15) Blood Urea Nitrogen 10 mg/dL (7-18) Creatinine 0.8 MG/DL (0.55-1.30) Estimat Glomerular Filtration Rate > 60 mL/min (>60) Glucose Level 103 MG/DL (74-106) Calcium Level 9.7 MG/DL (8.5-10.1) Total Bilirubin 0.3 MG/DL (0.2-1.0) Aspartate Amino Transf (AST/SGOT) 28 U/L (15-37) Alanine Aminotransferase (ALT/SGPT) 19 U/L (12-78) Alkaline Phosphatase 72 U/L (46-116) Total Protein 7.4 G/DL (6.4-8.2) Albumin 3.9 G/DL (3.4-5.0) Globulin 3.5 g/dL Albumin/Globulin Ratio 1.1 (1.0-2.7) Lipase 517 U/L (73-393) EKG Diagnostic Results Rate: normal Rhythm: NSR ST Segments: no acute changes ASA given to the pt in ED: No Rhythm Strip Diag. Results EP Interpretation: yes Rhythm: NSR, no PVC's, no ectopy Last Vital Signs Date Time Temp Pulse Resp B/P (MAP) Pulse Ox O2 Delivery O2 Flow Rate FiO2 08/25/18 14:09 98.1 84 20 135/94 100 Room Air Status: improved Disposition: HOME, SELF-CARE Condition: Stable Scripts Ondansetron Odt* (ZOFRAN ODT*) 4 Mg Tab.rapdis 4 MG BC EVERY 6 HOURS PRN for Nausea & Vomiting, #20 TAB 0 Refills Prov: Lalo Zuniga MD 08/25/18 Ranitidine Hcl* (ZANTAC*) 150 Mg Tablet 150 MG ORAL TWICE A DAY, #30 TAB Prov: Lalo Zuniga MD 08/25/18 Acetaminophen With Codeine (T#3) (TYLENOL #3 TAB*) Y Tab 1 TAB ORAL Q8H PRN for For Pain for 3 Days, TAB Prov: Lalo Zuniga MD 08/25/18 Referrals: [facility],REFERRING (PCP) Patient Instructions: Acute Pancreatitis, [id number], Low-Fat Diet for Pancreatitis or Gallbladder Conditions Lalo Zuniga MD Aug 25, 2018 14:30
== END 2018-08-25 14:13 | disposition home or self-care (01) ==
LOC: EMR 11:52
DX: K85.90 Acute pancreatitis without necrosis or infection, unspecified (principal); Z88.6 Allergy status to analgesic agent
CPT/HCPCS: 36415; 80053; 81003; 81025; 83690; 85025; 93005; 96361; 96374; 96375; 99284; J2270; J2405; S0028

== ENCOUNTER 2018-11-10 07:04 | Inpatient (IN) | payer MEDICAID, OTHER ==
[~2018-11-10] VITALS: Ht 154.9 cm; Wt 64.9 kg
[~2018-11-10 07:04] MED LIST changes: +ONDANSETRON ODT4 MG BC
--- NOTE | 2018-11-10 07:25 | Emergency Room Report ---
History of Present Illness General Chief Complaint: Abdominal Pain Source: Patient Present Illness HPI Patient just with complaints of epigastric abdominal pain radiation towards the back This started last night Patient claims of increased nausea vomiting Denies any chest pain or shortness of breath denies any lower abdominal pain Denies any dysuria frequency Patient has history of pancreatitis with previous gastritis as well Reports that she tried to take a Tylenol last night however was unable to keep any medicine down Allergies: Coded Allergies: IBUPROFEN (Verified Allergy, Mild, 08/25/18) Patient History Past Medical History: see triage record Pertinent Family History: none Last Menstrual Period: october Now: No : 1 Para: 0 Reviewed Nursing Documentation: PMH: Agreed; PSxH: Agreed Nursing Documentation-PMH Hx Cardiac Problems: No Hx Hypertension: No Hx Pacemaker: No Hx Diabetes: No Hx Dialysis: No Hx Neurological Problems: No Hx Cerebrovascular Accident: No Hx Seizures: No Review of Systems All Other Systems: negative except mentioned in HPI Physical Exam Vital Signs Date Time Temp Pulse Resp B/P (MAP) Pulse Ox O2 Delivery O2 Flow Rate FiO2 11/10/18 07:11 98.1 96 16 139/81 98 Sp02 EP Interpretation: reviewed, normal General Appearance: mild distress - Appears nauseated Head: normocephalic, atraumatic Eyes: bilateral eye PERRL, bilateral eye EOMI ENT: hearing grossly normal, normal pharynx, TMs + canals normal, uvula midline Neck: full range of motion, supple, no meningismus, no bony tend Respiratory: lungs clear, normal breath sounds, no rhonchi, no respiratory distress, no retraction, no accessory muscle use Cardiovascular #1: normal peripheral pulses, regular rate, rhythm, no edema, no gallop, no JVD, no murmur Gastrointestinal: normal bowel sounds, non tender, soft, no mass, no organomegaly, non-distended, no guarding, no hernia, no pulsatile mass, no rebound Genitourinary: no CVA tenderness Musculoskeletal: normal inspection Neurologic: oriented x3, responsive, community relations representative III-XII nml as tested, motor strength/ tone normal, sensory intact Psychiatric: mood/affect normal Skin: normal color, no rash, warm/dry, palpation normal Lymphatic: normal inspection, no adenopathy Medical Decision Making Diagnostic Impression: Primary Impression: Pancreatitis ER Course With the patient's history and examination, multiple differentials considered, including but not limited to , ectopic , ovarian torsion, gastritis, cholecystitis, pancreatitis, appendicitis Patient received anti-medic medication IV hydration symptomatically feels improved however patient's lipase count is significantly elevated compared to previous presentations Over 1999 With this patient requiring further inpatient care Labs Test 11/10/18 07:45 11/10/18 08:55 11/10/18 11:11 11/11/18 06:15 White Blood Count 7.4 K/UL (4.8-10.8) 6.2 K/UL (4.8-10.8) Red Blood Count 4.36 M/UL (4.20-5.40) 3.89 M/UL (4.20-5.40) Hemoglobin 13.0 G/DL (12.0-16.0) 11.6 G/DL (12.0-16.0) Hematocrit 39.3 % (37.0-47.0) 35.3 % (37.0-47.0) Mean Corpuscular Volume 90 FL (80-99) 91 FL (80-99) Mean Corpuscular Hemoglobin 29.9 PG (27.0-31.0) 29.9 PG (27.0-31.0) Mean Corpuscular Hemoglobin Concent 33.1 G/DL (32.0-36.0) 32.9 G/DL (32.0-36.0) Red Cell Distribution Width 11.9 % (11.6-14.8) 12.2 % (11.6-14.8) Platelet Count 424 K/UL (150-450) 380 K/UL (150-450) Mean Platelet Volume 4.9 FL (6.5-10.1) 5.2 FL (6.5-10.1) Neutrophils (%) (Auto) 66.0 % (45.0-75.0) 57.1 % (45.0-75.0) Lymphocytes (%) (Auto) 19.3 % (20.0-45.0) 25.6 % (20.0-45.0) Monocytes (%) (Auto) 6.8 % (1.0-10.0) 9.0 % (1.0-10.0) Eosinophils (%) (Auto) 6.3 % (0.0-3.0) 7.0 % (0.0-3.0) Basophils (%) (Auto) 1.6 % (0.0-2.0) 1.3 % (0.0-2.0) Sodium Level 139 MMOL/L (136-145) 138 MMOL/L (136-145) Potassium Level 3.1 MMOL/L (3.5-5.1) 3.0 MMOL/L (3.5-5.1) Chloride Level 100 MMOL/L (98-107) 101 MMOL/L (98-107) Carbon Dioxide Level 28 MMOL/L (21-32) 29 MMOL/L (21-32) Anion Gap 11 mmol/L (5-15) 8 mmol/L (5-15) Blood Urea Nitrogen 11 mg/dL (7-18) 10 mg/dL (7-18) Creatinine 0.7 MG/DL (0.55-1.30) 0.8 MG/DL (0.55-1.30) Estimat Glomerular Filtration Rate > 60 mL/min (>60) > 60 mL/min (>60) Glucose Level 114 MG/DL (74-106) 84 MG/DL (74-106) Calcium Level 9.4 MG/DL (8.5-10.1) 8.7 MG/DL (8.5-10.1) Total Bilirubin 0.4 MG/DL (0.2-1.0) 0.4 MG/DL (0.2-1.0) Aspartate Amino Transf (AST/SGOT) 48 U/L (15-37) 31 U/L (15-37) Alanine Aminotransferase (ALT/SGPT) 26 U/L (12-78) 22 U/L (12-78) Alkaline Phosphatase 67 U/L (46-116) 58 U/L (46-116) Total Protein 7.2 G/DL (6.4-8.2) 6.6 G/DL (6.4-8.2) Albumin 3.8 G/DL (3.4-5.0) 3.3 G/DL (3.4-5.0) Globulin 3.4 g/dL 3.3 g/dL Albumin/Globulin Ratio 1.1 (1.0-2.7) 1.0 (1.0-2.7) Lipase > 2000 U/L (73-393) > 2000 U/L (73-393) Urine Color Yellow Urine Appearance Slightly cloudy Urine pH 7 (4.5-8.0) Urine Specific [place] 1.010 (1.005-1.035) Urine Protein 1+ (NEGATIVE) Urine Glucose (UA) Negative (NEGATIVE) Urine Ketones Negative (NEGATIVE) Urine Blood Negative (NEGATIVE) Urine Nitrite Negative (NEGATIVE) Urine Bilirubin Negative (NEGATIVE) Urine Urobilinogen Normal MG/DL (0.0-1.0) Urine Leukocyte Esterase 1+ (NEGATIVE) Urine RBC 0-2 /HPF (0 - 2) Urine WBC 2-4 /HPF (0 - 2) Urine Squamous Epithelial Cells Moderate /LPF (NONE/OCC) Urine Bacteria Few /HPF (NONE) Urine Mucus Few /LPF (NONE/OCC) Urine HCG, Qualitative Negative (NEGATIVE) Urine Opiates Screen Positive (NEGATIVE) Urine Barbiturates Screen Negative (NEGATIVE) Phencyclidine (PCP) Screen Negative (NEGATIVE) Urine Amphetamines Screen Negative (NEGATIVE) Urine Benzodiazepines Screen Negative (NEGATIVE) Urine Cocaine Screen Positive (NEGATIVE) Urine Marijuana (THC) Screen Positive (NEGATIVE) Activated Partial Thromboplast Time 33 SEC (23-33) Amylase Level 183 U/L (25-115) CT/MRI/US Diagnostic Results CT/MRI/US Diagnostic Results : Impression abdominal ultrasound: Impression: Fatty liver Gallbladder sludge Last Vital Signs Date Time Temp Pulse Resp B/P (MAP) Pulse Ox O2 Delivery O2 Flow Rate FiO2 11/10/18 07:11 98.1 96 16 139/81 98 Status: improved Disposition: ADMITTED INPATIENT Condition: Serious KamjadielWarren IBARRA Nov 10, 2018 07:25
[2018-11-10 07:30] VITALS: BP 139/81
[2018-11-10] MEDS ORDERED: Metoclopramide 10mg/2ml Inj IVP ONE (07:30)
[2018-11-10] MEDS ORDERED: DiphenhydrAMINE 50mg/ml Inj IVP ONE (07:30)
--- NOTE | 2018-11-10 07:30 | NUR ---
ED Nurse Note: pt walked in to ED due to burning abdominal pain since last night. denies n/v/d. per pt, had hx of pancreatitis. ate hot chicken wing last night for dinner. AAO x4. respirations even and non-labored noted. skin warm to touch. no fever or chills noted. no open wound noted. unable to provide urine sample at this time. per pt, no chance of and wants medications before urine test result. will wait for the further order.
[2018-11-10 08:05] LABS: BASOPHILS % (AUTO) 1.6 % (0.0-2.0); EOSINOPHILS % (AUTO) 6.3 % (0.0-3.0); HEMATOCRIT 39.3 % (37.0-47.0); LYMPHOCYTES % (AUTO) 19.3 % (20.0-45.0); MEAN CORPUSCULAR VOLUME 90 FL (80-99); MONOCYTES % (AUTO) 6.8 % (1.0-10.0); PLATELET COUNT 424 K/UL (150-450); RED BLOOD COUNT 4.36 M/UL (4.20-5.40); RED CELL DISTRIBUTION WIDTH 11.9 % (11.6-14.8); WHITE BLOOD COUNT 7.4 K/UL (4.8-10.8)
[2018-11-10 09:26] LABS: ANION GAP 11 mmol/L (5-15); BLOOD UREA NITROGEN 11 mg/dL (7-18); CALCIUM 9.4 MG/DL (8.5-10.1); CARBON DIOXIDE 28 MMOL/L (21-32); CHLORIDE 100 MMOL/L (98-107); CREATININE 0.7 MG/DL (0.55-1.30); POTASSIUM 3.1 MMOL/L (3.5-5.1); SODIUM 139 MMOL/L (136-145)
[2018-11-10 09:31] LABS: ALANINE AMINOTRANSFERASE 26 U/L (12-78); ALBUMIN 3.8 G/DL (3.4-5.0); ALBUMIN/GLOBULIN RATIO 1.1 (1.0-2.7); ALKALINE PHOSPHATASE 67 U/L (46-116); ASPARTATE AMINO TRANSFERASE 48 U/L (15-37); BILIRUBIN,TOTAL 0.4 MG/DL (0.2-1.0)
[2018-11-10 11:52] LABS: APPEARANCE,URINE SLIGHTLY CLOUDY; BILIRUBIN, URINE NEGATIVE (NEGATIVE); GLUCOSE, URINE (UA) NEGATIVE (NEGATIVE); KETONES,URINE NEGATIVE (NEGATIVE); LEUKOCYTE ESTERASE ,URINE 1+ (NEGATIVE); NITRITE,URINE NEGATIVE (NEGATIVE); PH,URINE 7 (4.5-8.0); PROTEIN,URINE 1+ (NEGATIVE); UROBILINOGEN,URINE NORMAL MG/DL (0.0-1.0)
[2018-11-10 11:53] VITALS: BP 124/87
[2018-11-10 11:53] LABS: COLOR,URINE YELLOW
--- NOTE | 2018-11-10 12:11 | Diagnostic Imaging Report ---
Indication:Abdominal pain Technique: Grayscale and duplex Doppler imaging of the abdomen performed. Comparison: None Findings: The liver is echogenic consistent with fatty infiltration. Gallbladder sludge noted.. The demonstrated part of the pancreas, aorta and IVC show no abnormalities. Both kidneys appear unremarkable. The spleen is normal in size. There is no biliary ductal dilatation identified. Doppler evaluation of the main portal vein shows patency. There is no ascites. No hydronephrosis seen. Impression: Fatty liver Gallbladder sludge
--- NOTE | 2018-11-10 13:34 | NUR ---
ED Nurse Note: RN unable to give a reports due to MS nurse at break. will try 15 mins later as request.
--- NOTE | 2018-11-10 14:07 | NUR ---
ED Nurse Note: Reports given to MICHELLE Dominguez
--- NOTE | 2018-11-10 14:50 | NUR ---
NURSE NOTES: Dr Caldwell phoned for orders, gave directions to obtain orders from dr. Acevedo
--- NOTE | 2018-11-10 15:30 | NUR ---
NURSE NOTES: Follow call made to Dr Garcia for orders pt is complaining of abdominal pain
[2018-11-10 16:00] VITALS: BP 127/78
--- NOTE | 2018-11-10 16:14 | NUR ---
NURSE NOTES: Per Jennys Javi order called Dr Robertson for the admission orders. Message left. Will f/u
[2018-11-10] MEDS ORDERED: HYDROcodone/Acetamin 5/325 tab ORAL PRN (16:15)
[2018-11-10] MEDS ORDERED: LORazepam Inj 2mg/ml 1ml IV PRN (16:15)
[2018-11-10] MEDS ORDERED: Miralax 17gm pkt ORAL PRN (16:15)
[2018-11-10] MEDS ORDERED: Promethazine HCl 12.5 MG in NS 55 ML IV PRN (16:15)
[2018-11-10] MEDS ORDERED: Mylanta II UD 30ml ORAL PRN (16:15)
[2018-11-10] MEDS ORDERED: Promethazine HCl 25 MG in NS 55 ML IV PRN (16:15)
[2018-11-10] MEDS ORDERED: Nitroglycerin Subl 0.4mg tab SL PRN (16:15)
[2018-11-10] MEDS: Metoclopramide 10mg/2ml Inj IVP PRN (16:50)
[2018-11-10] MEDS: Morphine Sulfate 2mg/ml Inj(IV/IM USE ONLY) IVP PRN ×2 (16:50→22:15)
[2018-11-10] MEDS: D5 1/2NS 1,000 ML IV SCH (17:21)
--- NOTE | 2018-11-10 18:00 | NUR ---
NURSE NOTES: Pt is able to verbalize known needs per pt statement does not have ant medical hx. Pt is a nonsmoker but does admit to smoking marijuana. Morphine given for pain. as well as medication fro nausea. Breathing room air no signs of distress. Bed in safe position. Encouraged to place call light on if she felt she needed assistance for the restroom
[2018-11-10] MEDS: Cyclobenzaprine 10mg Tab ORAL SCH (18:23)
--- NOTE | 2018-11-10 18:42 | History & Physical ---
History and Physical History & Physicial Dictated for Int Med-Dr Caldwell no. [id number]. Ike Richardson MD Nov 10, 2018 18:42
--- NOTE | 2018-11-10 19:30 | NUR ---
NURSE NOTES: Received patient on bed awake, no s/s of any distress, denies any pain, IV line intact and infusing well, Bed in low position and locked, call light within reach, will continue to monitor.
[2018-11-10 20:00] VITALS: BP 141/87
--- NOTE | 2018-11-10 20:32 | NUR ---
HAND-OFF: Report given to Maxime MARTINEZ.
[2018-11-10] MEDS: Heparin 5000 units/ml inj SUBQ SCH (20:33)
[2018-11-11] VITALS: BP 115/80
[2018-11-11 04:00] VITALS: BP 126/87
--- NOTE | 2018-11-11 04:36 | History and Physical Report ---
DATE OF ADMISSION: 11/10/2018 CHIEF COMPLAINT: The patient is a 33-year-old, female, with history of alcohol abuse, presents with a chief complaint of epigastric pain. HISTORY OF PRESENT ILLNESS: The patient has a history of chronic pancreatitis secondary to alcohol abuse. The patient presented to [facility] Emergency Room complaining of epigastric pain. The patient also had intractable nausea and vomiting. The patient was evaluated in [place] emergency room. The patient was admitted for acute on chronic pancreatitis secondary to alcohol abuse. REVIEW OF SYSTEMS: CONSTITUTIONAL: The patient denies weight loss or weight gain. The patient denies fevers or chills. HEENT: The patient denies ear or throat pain. The patient denies headache. CARDIOVASCULAR: The patient denies palpitations or chest pain. CHEST: The patient denies wheeze or shortness of breath. ABDOMEN: The patient complains of epigastric pain, nausea, and vomiting as above. The patient denies diarrhea or constipation. GENITOURINARY: The patient denies dysuria or increased frequency of urination. NEUROMUSCULAR: The patient denies seizures or generalized weakness. PAST MEDICAL HISTORY: Significant for, 1. Alcohol abuse. 2. Chronic pancreatitis. 3. Chronic alcoholic gastritis. PAST SURGICAL HISTORY: The patient denies. CURRENT MEDICATIONS: 1. Tylenol 650 mg p.o. q.4 hours p.r.n. 2. Tylenol No. 3, 1 tablet p.o. q.8 hours p.r.n. 3. Flexeril 10 mg p.o. 3 times daily. 4. Ibuprofen 600 mg p.o. 3 times daily. 5. Robaxin 500 mg p.o. 3 times daily. 6. Naprosyn 375 mg p.o. 3 times daily. 7. Zofran 4 mg p.o. q.6 hours p.r.n. 8. Zantac 150 mg p.o. twice daily. ALLERGIES: Ibuprofen. SOCIAL HISTORY: The patient is . The patient denies tobacco use. The patient admits to alcohol abuse as above. PHYSICAL EXAMINATION: VITAL SIGNS: Temperature 98.1, respirations 16, pulse 96, and blood pressure 139/81. GENERAL: The patient is a well-developed and well-nourished female, in no apparent distress. HEENT: Eyes, pupils are equal and responsive to light and accommodation. Extraocular movements are intact. NECK: Supple without lymphadenopathy. CHEST: Lungs are clear to auscultation bilaterally without wheezes or rales. CARDIOVASCULAR: Regular rhythm and rate. S1 and S2 are normal without murmurs, rubs, or gallops. ABDOMEN: Soft, nontender, and nondistended. Positive bowel sounds. No evidence of hepatosplenomegaly. Currently, no rebound or guarding noted. EXTREMITIES: Negative for clubbing, cyanosis, or edema. RECTAL/GENITAL: Refused. NEUROLOGIC: Cranial nerves II through XII are grossly intact without focal deficits. Motor strength is 5/5 bilaterally. Deep tendon reflexes are 2+ plantar. LABORATORY STUDIES: WBC 7.4, hemoglobin 13.3, hematocrit 39.3, and platelets 424,000. Sodium 139, potassium 3.1, chloride 100, CO2 28, BUN 11, creatinine 0.7, and glucose 114. Lipase greater than 2000. AST elevated at 48. Urine toxicology was positive for cocaine, marijuana, and opiates. Urinalysis show 1+ leukocyte esterase with few bacteria. ASSESSMENT: This is a 33-year-old female. 1. Acute pancreatitis. 2. History of alcohol abuse. 3. Epigastric pain. 4. Nausea with vomiting. 5. History of alcoholic gastritis. TREATMENT: 1. Epigastric pain/chronic pancreatitis. A Gastroenterology consultation has been obtained with Dr. Miles Ortega. The patient is currently NPO. The patient is currently receiving intravenous fluids. We will follow recommendations of GI, Dr. Ortega. 2. History of alcohol abuse. The patient is currently being offered Ativan p.r.n. withdrawal symptoms. Ike Richardson M.D. DR: MARY LOU JOB#: [id number] CC:
[2018-11-11] MEDS: D5 1/2NS 1,000 ML IV SCH ×2 (06:01→18:53)
--- NOTE | 2018-11-11 07:28 | NUR ---
HAND-OFF: Report given to Shireen MARTINEZ.
[2018-11-11 07:34] LABS: BASOPHILS % (AUTO) 1.3 % (0.0-2.0); HEMATOCRIT 35.3 % (37.0-47.0); HEMOGLOBIN 11.6 G/DL (12.0-16.0); LYMPHOCYTES % (AUTO) 25.6 % (20.0-45.0); MEAN CORPUSCULAR VOLUME 91 FL (80-99); NEUTROPHILS % (AUTO) 57.1 % (45.0-75.0); PLATELET COUNT 380 K/UL (150-450); RED BLOOD COUNT 3.89 M/UL (4.20-5.40); RED CELL DISTRIBUTION WIDTH 12.2 % (11.6-14.8); WHITE BLOOD COUNT 6.2 K/UL (4.8-10.8)
[2018-11-11 07:42] LABS: ALANINE AMINOTRANSFERASE 22 U/L (12-78); ALBUMIN 3.3 G/DL (3.4-5.0); ALKALINE PHOSPHATASE 58 U/L (46-116); AMYLASE 183 U/L (25-115); ANION GAP 8 mmol/L (5-15); ASPARTATE AMINO TRANSFERASE 31 U/L (15-37); BILIRUBIN,TOTAL 0.4 MG/DL (0.2-1.0); BLOOD UREA NITROGEN 10 mg/dL (7-18); CALCIUM 8.7 MG/DL (8.5-10.1); CARBON DIOXIDE 29 MMOL/L (21-32); CHLORIDE 101 MMOL/L (98-107); CREATININE 0.8 MG/DL (0.55-1.30); SODIUM 138 MMOL/L (136-145)
--- NOTE | 2018-11-11 07:47 | NUR ---
NURSE NOTES: Patient received sleeping in bed. Breathing unlabored on room air. IV site patent and intact with fluids running. Call light placed within reach, will continue to monitor.
[2018-11-11 08:00] VITALS: BP 127/90
[2018-11-11] MEDS: Morphine Sulfate 2mg/ml Inj(IV/IM USE ONLY) IVP PRN ×3 (08:50→22:28)
[2018-11-11] MEDS: Pantoprazole Inj IV SCH (08:50)
[2018-11-11] MEDS: Cyclobenzaprine 10mg Tab ORAL SCH ×3 (08:50→17:59)
[2018-11-11] MEDS: Heparin 5000 units/ml inj SUBQ SCH ×2 (09:10→20:17)
--- NOTE | 2018-11-11 09:20 | NUR ---
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 GALLBLADDER SLUDGE. IS:D5/NS x1L IV REGLAN 10mg FLEXERIL 10mg PROTONIX 40mG IV ADMITTED TO MED/SURG DC PLAN RETURN HOME
[2018-11-11 12:00] VITALS: BP 134/112
--- NOTE | 2018-11-11 12:26 | General Progress Note ---
Assessment/Plan Problem List: (1) ETOH abuse ICD Codes: F10.10 - Alcohol abuse, uncomplicated SNOMED: 68967383 (2) Pancreatitis ICD Codes: K85.9 - Acute pancreatitis, unspecified SNOMED: 08056467 Assessment/Plan IVF banana bag pain control npo fu labs Subjective ROS Limited/Unobtainable: Yes Allergies: Coded Allergies: IBUPROFEN (Verified Allergy, Mild, 08/25/18) Objective Last 24 Hour Vital Signs Date Time Temp Pulse Resp B/P (MAP) Pulse Ox O2 Delivery O2 Flow Rate FiO2 11/11/18 09:00 Room Air 11/11/18 08:00 98.1 94 20 127/90 (102) 100 11/11/18 04:00 98.7 86 18 126/87 (100) 100 11/11/18 00:00 98.5 90 20 115/80 (92) 99 11/10/18 21:00 Room Air 11/10/18 20:00 98.8 85 20 141/87 (105) 99 11/10/18 16:00 98.0 88 15 127/78 (94) 99 11/10/18 14:34 Room Air 11/10/18 14:07 98.0 88 15 127/78 99 Room Air Intake and Output 11/10/18 11/11/18 19:00 07:00 Intake Total 1075 ml 825 ml Balance 1075 ml 825 ml Intake Oral 0 ml IV Total 1075 ml 825 ml Laboratory Tests 11/11/18 06:15: White Blood Count 6.2, Red Blood Count 3.89L, Hemoglobin 11.6L, Hematocrit 35.3L , Mean Corpuscular Volume 91, Mean Corpuscular Hemoglobin 29.9, Mean Corpuscular Hemoglobin Concent 32.9, Red Cell Distribution Width 12.2, Platelet Count 380, Mean Platelet Volume 5.2L, Neutrophils (%) (Auto) 57.1, Lymphocytes ( %) (Auto) 25.6, Monocytes (%) (Auto) 9.0, Eosinophils (%) (Auto) 7.0H, Basophils (%) (Auto) 1.3, Activated Partial Thromboplast Time 33, Sodium Level 138, Potassium Level 3.0L, Chloride Level 101, Carbon Dioxide Level 29, Anion Gap 8, Blood Urea Nitrogen 10, Creatinine 0.8, Estimat Glomerular Filtration Rate > 60, Glucose Level 84, Calcium Level 8.7, Total Bilirubin 0.4, Aspartate Amino Transf (AST/SGOT) 31, Alanine Aminotransferase (ALT/SGPT) 22, Alkaline Phosphatase 58, Total Protein 6.6, Albumin 3.3L, Globulin 3.3, Albumin/Globulin Ratio 1.0, Amylase Level 183H, Lipase > 2000H Height (Feet): 5 Height (Inches): 1.00 Weight (Pounds): 143 General Appearance: alert EENT: normal ENT inspection Neck: supple Cardiovascular: tachycardia Respiratory/Chest: decreased breath sounds Abdomen: soft, hypoactive bowel sounds, tender Extremities: non-tender Miles Ortega MD Nov 11, 2018 12:26
--- NOTE | 2018-11-11 14:15 | Consultation ---
History of Present Illness General Date patient seen: Nov 11, 2018 Chief Complaint: Abdominal Pain Present Illness HPI 33 year old female presented to ER with complaints of epigastric abdominal pain radiation towards the back Patient claims of increased nausea vomiting. She was diagnosed to have acute pancreatitis and admitted for further work up. Allergies: Coded Allergies: IBUPROFEN (Verified Allergy, Mild, 08/25/18) Medication History Scheduled Amoxicillin* (Amoxil*), 500 MG ORAL THREE TIMES A DAY Cyclobenzaprine Hcl* (Flexeril*), 10 MG ORAL THREE TIMES A DAY Ibuprofen* (Motrin*), 600 MG ORAL THREE TIMES A DAY Loratadine/Pseudoephedrine (Claritin-D 12 Hour Tablet), 1 TAB ORAL EVERY 12 HOURS Methocarbamol* (Robaxin*), 500 MG PO TID Naproxen* (Naprosyn*), 375 MG ORAL TID Naproxen* (Naproxen*), 500 MG ORAL TWICE A DAY No Known Medications* (NKM - No Known Medications*), 0 ., (Reported) Ranitidine Hcl* (Zantac*), 150 MG ORAL TWICE A DAY Ranitidine Hcl* (Zantac*), 150 MG ORAL TWICE A DAY Ranitidine Hcl* (Zantac*), 150 MG ORAL TWICE A DAY Scheduled PRN Acetaminophen With Codeine (T#3) (Tylenol #3 Tab*), 1 TAB ORAL Q8H PRN for For Pain Acetaminophen With Codeine (T#3) (Tylenol #3 Tab*), 1 TAB ORAL Q8H PRN for For Pain Codeine/Promethazine Hcl* (Promethazine-Codeine Syrup*), 5 ML ORAL Q6H PRN for For Cough Hydrocodone Bit/Acetaminophen 5-325* ([place] 5-325*), 1 TAB ORAL Q6H PRN for For Pain Hydrocodone/Acetaminophen 5-325* (Hydrocodone/Acetaminophen 5-325*), 1 TAB ORAL Q6H PRN for For Pain Ondansetron Odt* (Zofran Odt*), 4 MG ORAL Q6H PRN for Nausea & Vomiting Ondansetron Odt* (Zofran Odt*), 4 MG ORAL Q6H PRN for Nausea & Vomiting Ondansetron Odt* (Zofran Odt*), 4 MG BC EVERY 6 HOURS PRN for Nausea & Vomiting Patient History Healthcare decision maker Resuscitation status Full Code Advanced Directive on File Yes Past Medical/Surgical History Past Medical/Surgical History: (1) [id number] (2) Opiate use (3) S/P appendectomy (4) ETOH abuse Review of Systems All Other Systems: negative except mentioned in HPI Physical Exam General Appearance: WD/WN Lines, tubes and drains: peripheral HEENT: normocephalic Neck: non-tender, supple Respiratory/Chest: chest wall non-tender, lungs clear Breasts: no masses Cardiovascular/Chest: regular rhythm Last 24 Hour Vital Signs Date Time Temp Pulse Resp B/P (MAP) Pulse Ox O2 Delivery O2 Flow Rate FiO2 11/11/18 12:00 97.1 100 20 134/112 (119) 98 11/11/18 09:00 Room Air 11/11/18 08:00 98.1 94 20 127/90 (102) 100 11/11/18 04:00 98.7 86 18 126/87 (100) 100 11/11/18 00:00 98.5 90 20 115/80 (92) 99 11/10/18 21:00 Room Air 11/10/18 20:00 98.8 85 20 141/87 (105) 99 11/10/18 16:00 98.0 88 15 127/78 (94) 99 11/10/18 14:34 Room Air Intake and Output 11/10/18 11/11/18 19:00 07:00 Intake Total 1075 ml 825 ml Balance 1075 ml 825 ml Intake Oral 0 ml IV Total 1075 ml 825 ml Laboratory Tests Test 11/11/18 06:15 White Blood Count 6.2 K/UL (4.8-10.8) Red Blood Count 3.89 M/UL (4.20-5.40) L Hemoglobin 11.6 G/DL (12.0-16.0) L Hematocrit 35.3 % (37.0-47.0) L Mean Corpuscular Volume 91 FL (80-99) Mean Corpuscular Hemoglobin 29.9 PG (27.0-31.0) Mean Corpuscular Hemoglobin Concent 32.9 G/DL (32.0-36.0) Red Cell Distribution Width 12.2 % (11.6-14.8) Platelet Count 380 K/UL (150-450) Mean Platelet Volume 5.2 FL (6.5-10.1) L Neutrophils (%) (Auto) 57.1 % (45.0-75.0) Lymphocytes (%) (Auto) 25.6 % (20.0-45.0) Monocytes (%) (Auto) 9.0 % (1.0-10.0) Eosinophils (%) (Auto) 7.0 % (0.0-3.0) H Basophils (%) (Auto) 1.3 % (0.0-2.0) Activated Partial Thromboplast Time 33 SEC (23-33) Sodium Level 138 MMOL/L (136-145) Potassium Level 3.0 MMOL/L (3.5-5.1) L Chloride Level 101 MMOL/L (98-107) Carbon Dioxide Level 29 MMOL/L (21-32) Anion Gap 8 mmol/L (5-15) Blood Urea Nitrogen 10 mg/dL (7-18) Creatinine 0.8 MG/DL (0.55-1.30) Estimat Glomerular Filtration Rate > 60 mL/min (>60) Glucose Level 84 MG/DL (74-106) Calcium Level 8.7 MG/DL (8.5-10.1) Total Bilirubin 0.4 MG/DL (0.2-1.0) Aspartate Amino Transf (AST/SGOT) 31 U/L (15-37) Alanine Aminotransferase (ALT/SGPT) 22 U/L (12-78) Alkaline Phosphatase 58 U/L (46-116) Total Protein 6.6 G/DL (6.4-8.2) Albumin 3.3 G/DL (3.4-5.0) L Globulin 3.3 g/dL Albumin/Globulin Ratio 1.0 (1.0-2.7) Amylase Level 183 U/L (25-115) H Lipase > 2000 U/L (73-393) H Height (Feet): 5 Height (Inches): 1.00 Weight (Pounds): 143 Medications Current Medications Medications (Trade) Dose Ordered Sig/Luul Route PRN Reason Start Time Stop Time Status Last Admin Dose Admin Acetaminophen (Tylenol) 650 mg Q4H PRN ORAL fever 11/10/18 16:15 12/10/18 16:14 Acetaminophen/ Hydrocodone Bitart ([place] 5/325) 1 tab Q6H PRN ORAL moderate pain 11/10/18 16:15 11/17/18 16:14 Al Hydroxide/Mg Hydroxide (Mylanta II) 30 ml Q6H PRN ORAL dyspepsia 11/10/18 16:15 12/10/18 16:14 Cyclobenzaprine HCl (Flexeril) 10 mg THREE TIMES A DAY ORAL 11/10/18 18:00 12/10/18 17:59 11/11/18 12:52 Dextrose (Dextrose 50%) 25 ml Q30M PRN IV Hypoglycemia 11/10/18 16:15 12/10/18 16:14 Dextrose (Dextrose 50%) 50 ml Q30M PRN IV Hypoglycemia 11/10/18 16:15 12/10/18 16:14 Dextrose/Sodium Chloride 1,000 ml @ 75 mls/hr [id number] IV 11/10/18 16:13 12/10/18 16:12 11/11/18 06:01 Diphenhydramine HCl (Benadryl) 25 mg Q6H PRN ORAL Itching/Pruritis 11/10/18 16:15 12/10/18 16:14 Folic Acid 1 mg/ Magnesium Sulfate 2000 mg/ Multivitamins 10 ml/Sodium Chloride 1,014.2 ml @ 125 mls/ hr Q24H IV 11/11/18 14:00 12/11/18 13:59 Heparin Sodium (Porcine) (Heparin 5000 units/ml) 5,000 units EVERY 12 HOURS SUBQ 11/10/18 21:00 12/10/18 20:59 11/11/18 09:10 Lorazepam (Ativan 2mg/ml 1ml) 1 mg Q4H PRN IV agitation 11/10/18 16:15 11/17/18 16:14 Metoclopramide HCl (Reglan) 10 mg Q6H PRN IVP servere nauasea 11/10/18 16:15 12/10/18 16:14 11/10/18 16:50 Morphine Sulfate (Morphine Sulfate) 2 mg Q4H PRN IVP severe Pain (Pain Scale 7-10) 11/10/18 16:15 11/17/18 16:14 11/11/18 08:50 Nitroglycerin (Ntg) 0.4 mg Q5M X 3 DOSES PRN SL Prn Chest Pain 11/10/18 16:15 12/10/18 16:14 Ondansetron HCl (Zofran) 4 mg Q6H PRN IVP Nausea & Vomiting 11/10/18 16:15 12/10/18 16:14 11/11/18 12:52 Pantoprazole (Protonix) 40 mg DAILY IV 11/11/18 09:00 12/11/18 08:59 11/11/18 08:50 Polyethylene Glycol (Miralax) 17 gm HSPRN PRN ORAL Constipation 11/10/18 16:15 12/10/18 16:14 Promethazine HCl (Phenergan) 25 mg Q6H PRN IM REFRACTORY N/V 11/10/18 16:30 12/10/18 16:29 Temazepam (Restoril) 15 mg HSPRN PRN ORAL Insomnia 11/10/18 16:15 11/17/18 16:14 Thiamine HCl 100 mg/Dextrose 56 ml @ 112 mls/hr Q24H IVPB 11/11/18 14:00 12/11/18 13:59 Assessment/Plan Problem List: (1) S/P appendectomy ICD Codes: Z90.49 - Acquired absence of other specified parts of digestive tract SNOMED: 03015556, 261680130 (2) ETOH abuse ICD Codes: F10.10 - Alcohol abuse, uncomplicated SNOMED: 56955725 (3) Pancreatitis ICD Codes: K85.9 - Acute pancreatitis, unspecified SNOMED: 71266103 Assessment/Plan npo symptomatic treatment analgesics iv fluids check electrolytes dvt prophylaxis. Rebel Robertson MD Nov 11, 2018 14:15
[2018-11-11] MEDS: Thiamine 100mg IVPB (Q24H) IVPB SCH ×2 (14:19)
[2018-11-11] MEDS: Folic Acid 1 MG, Magnesium Sulfate 2,000 MG, Multivitamin - 12 Injection 10 ML in Sodiu... IV SCH (14:51)
--- NOTE | 2018-11-11 15:49 | Internal Med Progress Note ---
Subjective Physician Name Migel Caldwell Attending Physician Migel Caldwell MD Current Medications Medications (Trade) Dose Ordered Sig/Lulu Route PRN Reason Start Time Stop Time Status Last Admin Dose Admin Acetaminophen (Tylenol) 650 mg Q4H PRN ORAL fever 11/10/18 16:15 12/10/18 16:14 Acetaminophen/ Hydrocodone Bitart ([place] 5/325) 1 tab Q6H PRN ORAL moderate pain 11/10/18 16:15 11/17/18 16:14 Al Hydroxide/Mg Hydroxide (Mylanta II) 30 ml Q6H PRN ORAL dyspepsia 11/10/18 16:15 12/10/18 16:14 Cyclobenzaprine HCl (Flexeril) 10 mg THREE TIMES A DAY ORAL 11/10/18 18:00 12/10/18 17:59 11/11/18 12:52 Dextrose (Dextrose 50%) 25 ml Q30M PRN IV Hypoglycemia 11/10/18 16:15 12/10/18 16:14 Dextrose (Dextrose 50%) 50 ml Q30M PRN IV Hypoglycemia 11/10/18 16:15 12/10/18 16:14 Dextrose/Sodium Chloride 1,000 ml @ 75 mls/hr [id number] IV 11/10/18 16:13 12/10/18 16:12 11/11/18 06:01 Diphenhydramine HCl (Benadryl) 25 mg Q6H PRN ORAL Itching/Pruritis 11/10/18 16:15 12/10/18 16:14 Folic Acid 1 mg/ Magnesium Sulfate 2000 mg/ Multivitamins 10 ml/Sodium Chloride 1,014.2 ml @ 125 mls/ hr Q24H IV 11/11/18 14:00 12/11/18 13:59 11/11/18 14:51 Heparin Sodium (Porcine) (Heparin 5000 units/ml) 5,000 units EVERY 12 HOURS SUBQ 11/10/18 21:00 12/10/18 20:59 11/11/18 09:10 Lorazepam (Ativan 2mg/ml 1ml) 1 mg Q4H PRN IV agitation 11/10/18 16:15 11/17/18 16:14 Metoclopramide HCl (Reglan) 10 mg Q6H PRN IVP servere nauasea 11/10/18 16:15 12/10/18 16:14 11/10/18 16:50 Morphine Sulfate (Morphine Sulfate) 2 mg Q4H PRN IVP severe Pain (Pain Scale 7-10) 11/10/18 16:15 11/17/18 16:14 11/11/18 08:50 Nitroglycerin (Ntg) 0.4 mg Q5M X 3 DOSES PRN SL Prn Chest Pain 11/10/18 16:15 12/10/18 16:14 Ondansetron HCl (Zofran) 4 mg Q6H PRN IVP Nausea & Vomiting 11/10/18 16:15 12/10/18 16:14 11/11/18 12:52 Pantoprazole (Protonix) 40 mg DAILY IV 11/11/18 09:00 12/11/18 08:59 11/11/18 08:50 Polyethylene Glycol (Miralax) 17 gm HSPRN PRN ORAL Constipation 11/10/18 16:15 12/10/18 16:14 Promethazine HCl (Phenergan) 25 mg Q6H PRN IM REFRACTORY N/V 11/10/18 16:30 12/10/18 16:29 Temazepam (Restoril) 15 mg HSPRN PRN ORAL Insomnia 11/10/18 16:15 11/17/18 16:14 Thiamine HCl 100 mg/Dextrose 56 ml @ 112 mls/hr Q24H IVPB 11/11/18 14:00 12/11/18 13:59 11/11/18 14:19 Allergies: Coded Allergies: IBUPROFEN (Verified Allergy, Mild, 08/25/18) Subjective She is awake, alert, responsive complain about abdominal pain. Objective Last Vital Signs Date Time Temp Pulse Resp B/P (MAP) Pulse Ox O2 Delivery O2 Flow Rate FiO2 11/11/18 12:00 97.1 100 20 134/112 (119) 98 11/11/18 09:00 Room Air Laboratory Tests Test 11/11/18 06:15 White Blood Count 6.2 K/UL (4.8-10.8) Red Blood Count 3.89 M/UL (4.20-5.40) L Hemoglobin 11.6 G/DL (12.0-16.0) L Hematocrit 35.3 % (37.0-47.0) L Mean Corpuscular Volume 91 FL (80-99) Mean Corpuscular Hemoglobin 29.9 PG (27.0-31.0) Mean Corpuscular Hemoglobin Concent 32.9 G/DL (32.0-36.0) Red Cell Distribution Width 12.2 % (11.6-14.8) Platelet Count 380 K/UL (150-450) Mean Platelet Volume 5.2 FL (6.5-10.1) L Neutrophils (%) (Auto) 57.1 % (45.0-75.0) Lymphocytes (%) (Auto) 25.6 % (20.0-45.0) Monocytes (%) (Auto) 9.0 % (1.0-10.0) Eosinophils (%) (Auto) 7.0 % (0.0-3.0) H Basophils (%) (Auto) 1.3 % (0.0-2.0) Activated Partial Thromboplast Time 33 SEC (23-33) Sodium Level 138 MMOL/L (136-145) Potassium Level 3.0 MMOL/L (3.5-5.1) L Chloride Level 101 MMOL/L (98-107) Carbon Dioxide Level 29 MMOL/L (21-32) Anion Gap 8 mmol/L (5-15) Blood Urea Nitrogen 10 mg/dL (7-18) Creatinine 0.8 MG/DL (0.55-1.30) Estimat Glomerular Filtration Rate > 60 mL/min (>60) Glucose Level 84 MG/DL (74-106) Calcium Level 8.7 MG/DL (8.5-10.1) Total Bilirubin 0.4 MG/DL (0.2-1.0) Aspartate Amino Transf (AST/SGOT) 31 U/L (15-37) Alanine Aminotransferase (ALT/SGPT) 22 U/L (12-78) Alkaline Phosphatase 58 U/L (46-116) Total Protein 6.6 G/DL (6.4-8.2) Albumin 3.3 G/DL (3.4-5.0) L Globulin 3.3 g/dL Albumin/Globulin Ratio 1.0 (1.0-2.7) Amylase Level 183 U/L (25-115) H Lipase > 2000 U/L (73-393) H Intake and Output 11/10/18 11/11/18 18:59 06:59 Intake Total 1075 ml 825 ml Balance 1075 ml 825 ml Intake Oral 0 ml IV Total 1075 ml 825 ml Objective General: No acute distress, awake and alert HEENT: NCAT, sclera anicteric, PERRL, EOMI. Neck: Supple, no significant jugular venous distention, Lungs: Good inspiratory effort, clear to auscultation bilaterally, no Wheeze or Rales. Heart: Regular rate and rhythm, normal S1/S2, no murmur. Abdomen: soft, + tenderness, nondistended. Normoactive bowel sounds. / Rectal: Refused and deferred. Extremities: No Cyanosis , clubbing or edema. Neuro: A&O x 3, Able to move all extremities Skin: warm, no rashes or lesions Psych: Normal mood and affect Assessment/Plan Assessment/Plan 1. Acute pancreatitis. 2. History of alcohol abuse. 3. Epigastric pain. 4. Nausea with vomiting. 5. History of alcoholic gastritis. TREATMENT: 1. Epigastric pain/chronic pancreatitis. A Gastroenterology consultation has been obtained with Dr. Miles Ortega. The patient is currently receiving intravenous fluids. We will follow recommendations of GI, Dr. Ortega. 2. History of alcohol abuse. The patient is currently being offered Ativan p.r.n. withdrawal symptoms. Advance diet as tolerated Migel Caldwell MD Nov 11, 2018 15:49
[2018-11-11 16:00] VITALS: BP 132/95
[2018-11-11] MEDS: Metoclopramide 10mg/2ml Inj IVP PRN (17:59)
--- NOTE | 2018-11-11 19:29 | NUR ---
HAND-OFF: Report given to Iván MARTINEZ.
--- NOTE | 2018-11-11 19:31 | NUR ---
NURSE NOTES: Pt received awake, alert, able to make needs known, aware of NPO status, bed in lowest position, no signs of distress or c/o pain, IV multivitamin bag running. Will continue to monitor.
[2018-11-11 20:00] VITALS: BP 141/87
[2018-11-12] VITALS: BP 136/94
[2018-11-12 04:00] VITALS: BP 132/91
[2018-11-12] MEDS: D5 1/2NS 1,000 ML IV SCH (05:59)
[2018-11-12] MEDS: Morphine Sulfate 2mg/ml Inj(IV/IM USE ONLY) IVP PRN ×4 (06:36→22:27)
[2018-11-12 06:42] LABS: BASOPHILS % (AUTO) 1.9 % (0.0-2.0); EOSINOPHILS % (AUTO) 9.7 % (0.0-3.0); HEMATOCRIT 32.6 % (37.0-47.0); HEMOGLOBIN 10.8 G/DL (12.0-16.0); LYMPHOCYTES % (AUTO) 32.5 % (20.0-45.0); MEAN CORPUSCULAR VOLUME 91 FL (80-99); NEUTROPHILS % (AUTO) 47.9 % (45.0-75.0); PLATELET COUNT 341 K/UL (150-450); RED BLOOD COUNT 3.59 M/UL (4.20-5.40); RED CELL DISTRIBUTION WIDTH 12.2 % (11.6-14.8); WHITE BLOOD COUNT 4.9 K/UL (4.8-10.8)
[2018-11-12 06:55] LABS: ALANINE AMINOTRANSFERASE 17 U/L (12-78); ALBUMIN/GLOBULIN RATIO 0.9 (1.0-2.7); ALKALINE PHOSPHATASE 57 U/L (46-116); AMYLASE 80 U/L (25-115); ANION GAP 12 mmol/L (5-15); ASPARTATE AMINO TRANSFERASE 34 U/L (15-37); BILIRUBIN,TOTAL 0.4 MG/DL (0.2-1.0); BLOOD UREA NITROGEN 6 mg/dL (7-18); CALCIUM 8.2 MG/DL (8.5-10.1); CARBON DIOXIDE 25 MMOL/L (21-32); CHLORIDE 99 MMOL/L (98-107); CHOLESTEROL 198 MG/DL (< 200); CREATININE 0.5 MG/DL (0.55-1.30); HDL CHOLESTEROL 54 MG/DL (40-60); SODIUM 136 MMOL/L (136-145); TRIGLYCERIDES 135 MG/DL (30-150)
[2018-11-12 07:30] LABS: PHOSPHORUS 2.7 MG/DL (2.5-4.9)
--- NOTE | 2018-11-12 07:30 | NUR ---
HAND-OFF: Report given to MICHELLE Alfred.
[2018-11-12 08:03] VITALS: BP 136/93
--- NOTE | 2018-11-12 08:04 | NUR ---
NURSE NOTES: Patient is alert and oriented,iv Fluids infusing as ordered,no complaints at this time,call light within reach,patient is NPO.
[2018-11-12] MEDS: Pantoprazole Inj IV SCH (09:12)
[2018-11-12] MEDS: Cyclobenzaprine 10mg Tab ORAL SCH ×3 (09:12→18:37)
[2018-11-12] MEDS: Heparin 5000 units/ml inj SUBQ SCH ×2 (09:14→20:18)
[2018-11-12 12:15] VITALS: BP 132/84
--- NOTE | 2018-11-12 14:10 | Internal Med Progress Note ---
Subjective Date of Service: Nov 12, 2018 Physician Name Ike Richardson Attending Physician Migel Caldwell MD Current Medications Medications (Trade) Dose Ordered Sig/Lulu Route PRN Reason Start Time Stop Time Status Last Admin Dose Admin Acetaminophen (Tylenol) 650 mg Q4H PRN ORAL fever 11/10/18 16:15 12/10/18 16:14 Acetaminophen/ Hydrocodone Bitart ([place] 5/325) 1 tab Q6H PRN ORAL moderate pain 11/10/18 16:15 11/17/18 16:14 Al Hydroxide/Mg Hydroxide (Mylanta II) 30 ml Q6H PRN ORAL dyspepsia 11/10/18 16:15 12/10/18 16:14 Cyclobenzaprine HCl (Flexeril) 10 mg THREE TIMES A DAY ORAL 11/10/18 18:00 12/10/18 17:59 11/12/18 13:16 Dextrose (Dextrose 50%) 25 ml Q30M PRN IV Hypoglycemia 11/10/18 16:15 12/10/18 16:14 Dextrose (Dextrose 50%) 50 ml Q30M PRN IV Hypoglycemia 11/10/18 16:15 12/10/18 16:14 Dextrose/Sodium Chloride 1,000 ml @ 75 mls/hr [id number] IV 11/10/18 16:13 12/10/18 16:12 11/12/18 05:59 Diphenhydramine HCl (Benadryl) 25 mg Q6H PRN ORAL Itching/Pruritis 11/10/18 16:15 12/10/18 16:14 Folic Acid 1 mg/ Magnesium Sulfate 2000 mg/ Multivitamins 10 ml/Sodium Chloride 1,014.2 ml @ 125 mls/ hr Q24H IV 11/11/18 14:00 12/11/18 13:59 11/11/18 14:51 Heparin Sodium (Porcine) (Heparin 5000 units/ml) 5,000 units EVERY 12 HOURS SUBQ 11/10/18 21:00 12/10/18 20:59 11/12/18 09:14 Lorazepam (Ativan 2mg/ml 1ml) 1 mg Q4H PRN IV agitation 11/10/18 16:15 11/17/18 16:14 Metoclopramide HCl (Reglan) 10 mg Q6H PRN IVP servere nauasea 11/10/18 16:15 12/10/18 16:14 11/11/18 17:59 Morphine Sulfate (Morphine Sulfate) 2 mg Q4H PRN IVP severe Pain (Pain Scale 7-10) 11/10/18 16:15 11/17/18 16:14 11/12/18 10:37 Nitroglycerin (Ntg) 0.4 mg Q5M X 3 DOSES PRN SL Prn Chest Pain 11/10/18 16:15 12/10/18 16:14 Ondansetron HCl (Zofran) 4 mg Q6H PRN IVP Nausea & Vomiting 11/10/18 16:15 12/10/18 16:14 11/11/18 22:31 Pantoprazole (Protonix) 40 mg DAILY IV 11/11/18 09:00 12/11/18 08:59 11/12/18 09:12 Polyethylene Glycol (Miralax) 17 gm HSPRN PRN ORAL Constipation 11/10/18 16:15 12/10/18 16:14 Promethazine HCl (Phenergan) 25 mg Q6H PRN IM REFRACTORY N/V 11/10/18 16:30 12/10/18 16:29 Temazepam (Restoril) 15 mg HSPRN PRN ORAL Insomnia 11/10/18 16:15 11/17/18 16:14 Thiamine HCl 100 mg/Dextrose 56 ml @ 112 mls/hr Q24H IVPB 11/11/18 14:00 12/11/18 13:59 11/11/18 14:19 Allergies: Coded Allergies: IBUPROFEN (Verified Allergy, Mild, 08/25/18) Subjective 33 YO F admitted with epigastric pain. Now acute on chronic alcoholic pancreatitis. Cover for Int Ramesh-Dr Caldwell Objective Last Vital Signs Date Time Temp Pulse Resp B/P (MAP) Pulse Ox O2 Delivery O2 Flow Rate FiO2 11/12/18 12:15 98.1 89 20 132/84 (100) 100 11/12/18 09:30 Room Air Laboratory Tests Test 11/12/18 05:45 White Blood Count 4.9 K/UL (4.8-10.8) Red Blood Count 3.59 M/UL (4.20-5.40) L Hemoglobin 10.8 G/DL (12.0-16.0) L Hematocrit 32.6 % (37.0-47.0) L Mean Corpuscular Volume 91 FL (80-99) Mean Corpuscular Hemoglobin 30.1 PG (27.0-31.0) Mean Corpuscular Hemoglobin Concent 33.1 G/DL (32.0-36.0) Red Cell Distribution Width 12.2 % (11.6-14.8) Platelet Count 341 K/UL (150-450) Mean Platelet Volume 5.2 FL (6.5-10.1) L Neutrophils (%) (Auto) 47.9 % (45.0-75.0) Lymphocytes (%) (Auto) 32.5 % (20.0-45.0) Monocytes (%) (Auto) 8.0 % (1.0-10.0) Eosinophils (%) (Auto) 9.7 % (0.0-3.0) H Basophils (%) (Auto) 1.9 % (0.0-2.0) Erythrocyte Sedimentation Rate 38 MM/HR (0-20) H Sodium Level 136 MMOL/L (136-145) Potassium Level 3.0 MMOL/L (3.5-5.1) L Chloride Level 99 MMOL/L (98-107) Carbon Dioxide Level 25 MMOL/L (21-32) Anion Gap 12 mmol/L (5-15) Blood Urea Nitrogen 6 mg/dL (7-18) L Creatinine 0.5 MG/DL (0.55-1.30) L Estimat Glomerular Filtration Rate > 60 mL/min (>60) Glucose Level 87 MG/DL (74-106) Calcium Level 8.2 MG/DL (8.5-10.1) L Phosphorus Level 2.7 MG/DL (2.5-4.9) Magnesium Level 1.8 MG/DL (1.8-2.4) Total Bilirubin 0.4 MG/DL (0.2-1.0) Aspartate Amino Transf (AST/SGOT) 34 U/L (15-37) Alanine Aminotransferase (ALT/SGPT) 17 U/L (12-78) Alkaline Phosphatase 57 U/L (46-116) C-Reactive Protein, Quantitative 5.8 mg/dL (0.00-0.90) H Total Protein 6.3 G/DL (6.4-8.2) L Albumin 3.0 G/DL (3.4-5.0) L Globulin 3.3 g/dL Albumin/Globulin Ratio 0.9 (1.0-2.7) L Triglycerides Level 135 MG/DL (30-150) Cholesterol Level 198 MG/DL (< 200) LDL Cholesterol 118 mg/dL (<100) H HDL Cholesterol 54 MG/DL (40-60) Cholesterol/HDL Ratio 3.7 (3.3-4.4) Amylase Level 80 U/L (25-115) Lipase 835 U/L (73-393) H Intake and Output 11/11/18 11/12/18 19:00 07:00 Intake Total 125 ml 1112 ml Output Total 500 ml Balance -375 ml 1112 ml IV Total 125 ml 1112 ml Output Urine Total 500 ml Objective Objective General: No acute distress, awake and alert HEENT: NCAT, sclera anicteric, PERRL, EOMI. Neck: Supple, no significant jugular venous distention, Lungs: Good inspiratory effort, clear to auscultation bilaterally, no Wheeze or Rales. Heart: Regular rate and rhythm, normal S1/S2, no murmur. Abdomen: soft, + tenderness, nondistended. Normoactive bowel sounds. / Rectal: Refused and deferred. Extremities: No Cyanosis , clubbing or edema. Neuro: A&O x 3, Able to move all extremities Skin: warm, no rashes or lesions Psych: Normal mood and affect Assessment/Plan Assessment/Plan Assessment/Plan Assessment/Plan Assessment/Plan 1. Acute pancreatitis. 2. History of alcohol abuse. 3. Epigastric pain. 4. Nausea with vomiting. 5. History of alcoholic gastritis. TREATMENT: 1. Epigastric pain/chronic pancreatitis. A Gastroenterology consultation has been obtained with Dr. Miles Ortega. The patient is currently receiving intravenous fluids. We will follow recommendations of GI, Dr. Ortega. 2. History of alcohol abuse. The patient is currently being offered Ativan p.r.n. withdrawal symptoms. Advance diet as tolerated Ike Richardson MD Nov 12, 2018 14:10
[2018-11-12] MEDS: Folic Acid 1 MG, Magnesium Sulfate 2,000 MG, Multivitamin - 12 Injection 10 ML in Sodiu... IV SCH (14:17)
[2018-11-12] MEDS: Thiamine 100mg IVPB (Q24H) IVPB SCH ×2 (14:17)
--- NOTE | 2018-11-12 14:22 | NUR ---
CASE MANAGEMENT: REVIEW SI: ACUTE PANCREATITIS . ETOH . T 97.9 HR 95 RR 20 BP 136/93 SAT 95% ROOM AIR K+ 3.0 LIPASE 835 IS: BANANA BAG IVF @125ML/HR THIAMINE IV Q24HR PROTONIX IV QD REGLAN IV Q6HR PRN CLEAR LIQUID PO DIET MED/SURG STATUS DCP: PATIENT IS FROM HOME
[2018-11-12 16:20] VITALS: BP 136/77
--- NOTE | 2018-11-12 18:59 | NUR ---
NURSE NOTES:patient tolerating clear liquids no complaint of nausea or vomiting,patient state pain level has decreases,Iv fluids ongoing as ordered.Call light within reach.
--- NOTE | 2018-11-12 19:51 | NUR ---
NURSE NOTES: Pt received walking to the restroom with IV pole, visitor at bedside, pt able to make needs known, call light within reach, will continue to monitor.
[2018-11-12 20:00] VITALS: BP 146/97
--- NOTE | 2018-11-12 20:32 | General Progress Note ---
Assessment/Plan Assessment/Plan Assessment/Plan Problem List: (1) ETOH abuse ICD Codes: F10.10 - Alcohol abuse, uncomplicated SNOMED: 52129031 (2) Pancreatitis ICD Codes: K85.9 - Acute pancreatitis, unspecified SNOMED: 82366701 Assessment/Plan IVF banana bag pain control gradual diet fu labs Subjective Allergies: Coded Allergies: IBUPROFEN (Verified Allergy, Mild, 08/25/18) Subjective Better today abd pain minimal (+) BM tolerating PO Objective Last 24 Hour Vital Signs Date Time Temp Pulse Resp B/P (MAP) Pulse Ox O2 Delivery O2 Flow Rate FiO2 11/12/18 16:20 98.1 94 18 136/77 (96) 97 11/12/18 12:15 98.1 89 20 132/84 (100) 100 11/12/18 09:30 Room Air 11/12/18 08:03 97.9 95 20 136/93 (107) 95 11/12/18 04:00 97.9 95 20 132/91 (105) 95 11/12/18 00:00 97.9 89 19 136/94 (108) 100 11/11/18 21:00 Room Air Intake and Output 11/11/18 11/12/18 18:59 06:59 Intake Total 1237 ml Output Total 500 ml Balance -500 ml 1237 ml IV Total 1237 ml Output Urine Total 500 ml Laboratory Tests 11/12/18 05:45: White Blood Count 4.9, Red Blood Count 3.59L, Hemoglobin 10.8L, Hematocrit 32.6L , Mean Corpuscular Volume 91, Mean Corpuscular Hemoglobin 30.1, Mean Corpuscular Hemoglobin Concent 33.1, Red Cell Distribution Width 12.2, Platelet Count 341, Mean Platelet Volume 5.2L, Neutrophils (%) (Auto) 47.9, Lymphocytes ( %) (Auto) 32.5, Monocytes (%) (Auto) 8.0, Eosinophils (%) (Auto) 9.7H, Basophils (%) (Auto) 1.9, Erythrocyte Sedimentation Rate 38H, Sodium Level 136, Potassium Level 3.0L, Chloride Level 99, Carbon Dioxide Level 25, Anion Gap 12, Blood Urea Nitrogen 6L, Creatinine 0.5L, Estimat Glomerular Filtration Rate > 60 , Glucose Level 87, Calcium Level 8.2L, Phosphorus Level 2.7, Magnesium Level 1.8, Total Bilirubin 0.4, Aspartate Amino Transf (AST/SGOT) 34, Alanine Aminotransferase (ALT/SGPT) 17, Alkaline Phosphatase 57, C-Reactive Protein, Quantitative 5.8H, Total Protein 6.3L, Albumin 3.0L, Globulin 3.3, Albumin/ Globulin Ratio 0.9L, Triglycerides Level 135, Cholesterol Level 198, LDL Cholesterol 118H, HDL Cholesterol 54, Cholesterol/HDL Ratio 3.7, Amylase Level 80, Lipase 835H Height (Feet): 5 Height (Inches): 1.00 Weight (Pounds): 143 Objective Obese AA woman NCAT supple CTA RRR abd soft ND no edema Roland Ernst MD Nov 12, 2018 20:32
[2018-11-13] VITALS: BP 134/95
[2018-11-13] MEDS: D5 1/2NS 1,000 ML IV SCH ×2 (02:46→10:53)
[2018-11-13 04:00] VITALS: BP 131/91
[2018-11-13] MEDS: Morphine Sulfate 2mg/ml Inj(IV/IM USE ONLY) IVP PRN ×2 (04:47→10:21)
--- NOTE | 2018-11-13 07:11 | NUR ---
HAND-OFF: Report given to MICHELLE Barnes. Endorsed that I left voicemail for Dr Berry regarding ESBL urine. Addendum: 11/13/18 at 0725 by JOSE ALFREDO SMALLWOOD RN NURSE NOTES: Wrong patient note. Please disregard.
--- NOTE | 2018-11-13 07:25 | NUR ---
HAND-OFF: Report given to MICHELLE Alfred.
[2018-11-13 07:27] LABS: BASOPHILS % (AUTO) 1.3 % (0.0-2.0); EOSINOPHILS % (AUTO) 10.8 % (0.0-3.0); HEMOGLOBIN 11.3 G/DL (12.0-16.0); LYMPHOCYTES % (AUTO) 30.7 % (20.0-45.0); MEAN CORPUSCULAR VOLUME 91 FL (80-99); NEUTROPHILS % (AUTO) 47.2 % (45.0-75.0); PLATELET COUNT 346 K/UL (150-450); RED BLOOD COUNT 3.76 M/UL (4.20-5.40); WHITE BLOOD COUNT 4.8 K/UL (4.8-10.8)
--- NOTE | 2018-11-13 07:37 | NUR ---
NURSE NOTES: patient is alert and oriented,IV fluids infusing as ordered,patient tolerating clear liquids,no complaint of pain or N/V.Call light within reach.
[2018-11-13 07:38] LABS: ALANINE AMINOTRANSFERASE 21 U/L (12-78); ALBUMIN 3.2 G/DL (3.4-5.0); ALBUMIN/GLOBULIN RATIO 0.9 (1.0-2.7); ALKALINE PHOSPHATASE 57 U/L (46-116); AMYLASE 92 U/L (25-115); ANION GAP 9 mmol/L (5-15); ASPARTATE AMINO TRANSFERASE 42 U/L (15-37); BILIRUBIN,TOTAL 0.2 MG/DL (0.2-1.0); BLOOD UREA NITROGEN 4 mg/dL (7-18); CALCIUM 8.6 MG/DL (8.5-10.1); CARBON DIOXIDE 27 MMOL/L (21-32); CHLORIDE 104 MMOL/L (98-107); CREATININE 0.6 MG/DL (0.55-1.30); POTASSIUM 3.6 MMOL/L (3.5-5.1); SODIUM 140 MMOL/L (136-145)
[2018-11-13 08:03] VITALS: BP 119/84
[2018-11-13] MEDS: Cyclobenzaprine 10mg Tab ORAL SCH ×2 (08:37→13:17)
[2018-11-13] MEDS: Pantoprazole Inj IV SCH (08:37)
[2018-11-13] MEDS: Heparin 5000 units/ml inj SUBQ SCH (08:39)
[2018-11-13 11:57] VITALS: BP 123/82
--- NOTE | 2018-11-13 14:17 | NUR ---
CASE MANAGEMENT: REVIEW SI: ACUTE PANCREATITIS . ETOH . T 97.9 HR 82 RR 16 BP 123/82 SAT 96% ROOM AIR BUN 4 AST 42 LIPASE 962 IS: BANANA BAG IVF @125ML/HR THIAMINE IV Q24HR PROTONIX IV QD REGLAN IV Q6HR PRN CLEAR LIQUID PO DIET MED/SURG STATUS DCP: PATIENT IS FROM HOME
[2018-11-13] MEDS: Thiamine 100mg IVPB (Q24H) IVPB SCH ×2 (14:22)
[2018-11-13] MEDS: Folic Acid 1 MG, Magnesium Sulfate 2,000 MG, Multivitamin - 12 Injection 10 ML in Sodiu... IV SCH (14:24)
--- NOTE | 2018-11-13 15:38 | Internal Med Progress Note ---
Subjective Date of Service: Nov 13, 2018 Physician Name Ike Richardson Attending Physician Migel Caldwell MD Current Medications Medications (Trade) Dose Ordered Sig/Lulu Route PRN Reason Start Time Stop Time Status Last Admin Dose Admin Acetaminophen (Tylenol) 650 mg Q4H PRN ORAL fever 11/10/18 16:15 12/10/18 16:14 Acetaminophen/ Hydrocodone Bitart ([place] 5/325) 1 tab Q6H PRN ORAL moderate pain 11/10/18 16:15 11/17/18 16:14 Al Hydroxide/Mg Hydroxide (Mylanta II) 30 ml Q6H PRN ORAL dyspepsia 11/10/18 16:15 12/10/18 16:14 Cyclobenzaprine HCl (Flexeril) 10 mg THREE TIMES A DAY ORAL 11/10/18 18:00 12/10/18 17:59 11/13/18 13:17 Dextrose (Dextrose 50%) 25 ml Q30M PRN IV Hypoglycemia 11/10/18 16:15 12/10/18 16:14 Dextrose (Dextrose 50%) 50 ml Q30M PRN IV Hypoglycemia 11/10/18 16:15 12/10/18 16:14 Dextrose/Sodium Chloride 1,000 ml @ 75 mls/hr [id number] IV 11/10/18 16:13 12/10/18 16:12 11/13/18 02:46 Diphenhydramine HCl (Benadryl) 25 mg Q6H PRN ORAL Itching/Pruritis 11/10/18 16:15 12/10/18 16:14 Folic Acid 1 mg/ Magnesium Sulfate 2000 mg/ Multivitamins 10 ml/Sodium Chloride 1,014.2 ml @ 125 mls/ hr Q24H IV 11/11/18 14:00 12/11/18 13:59 11/13/18 14:24 Heparin Sodium (Porcine) (Heparin 5000 units/ml) 5,000 units EVERY 12 HOURS SUBQ 11/10/18 21:00 12/10/18 20:59 11/13/18 08:39 Lorazepam (Ativan 2mg/ml 1ml) 1 mg Q4H PRN IV agitation 11/10/18 16:15 11/17/18 16:14 Metoclopramide HCl (Reglan) 10 mg Q6H PRN IVP servere nauasea 11/10/18 16:15 12/10/18 16:14 11/11/18 17:59 Morphine Sulfate (Morphine Sulfate) 2 mg Q4H PRN IVP severe Pain (Pain Scale 7-10) 11/10/18 16:15 11/17/18 16:14 11/13/18 10:21 Nitroglycerin (Ntg) 0.4 mg Q5M X 3 DOSES PRN SL Prn Chest Pain 11/10/18 16:15 12/10/18 16:14 Ondansetron HCl (Zofran) 4 mg Q6H PRN IVP Nausea & Vomiting 11/10/18 16:15 12/10/18 16:14 11/11/18 22:31 Pantoprazole (Protonix) 40 mg DAILY IV 11/11/18 09:00 12/11/18 08:59 11/13/18 08:37 Polyethylene Glycol (Miralax) 17 gm HSPRN PRN ORAL Constipation 11/10/18 16:15 12/10/18 16:14 Promethazine HCl (Phenergan) 25 mg Q6H PRN IM REFRACTORY N/V 11/10/18 16:30 12/10/18 16:29 Temazepam (Restoril) 15 mg HSPRN PRN ORAL Insomnia 11/10/18 16:15 11/17/18 16:14 11/12/18 20:33 Thiamine HCl 100 mg/Dextrose 56 ml @ 112 mls/hr Q24H IVPB 11/11/18 14:00 12/11/18 13:59 11/13/18 14:22 Allergies: Coded Allergies: IBUPROFEN (Verified Allergy, Mild, 08/25/18) ROS Limited/Unobtainable: No Constitutional: Reports: no symptoms HEENT: Reports: no symptoms Cardiovascular: Reports: no symptoms Respiratory: Reports: no symptoms Gastrointestinal/Abdominal: Reports: abdominal pain, nausea, vomiting Genitourinary: Reports: no symptoms Neurologic/Psychiatric: Reports: no symptoms Subjective 33 YO F admitted with epigastric pain. Now acute on chronic alcoholic pancreatitis. Cover for Int Ramesh-Dr Caldwell Objective Last Vital Signs Date Time Temp Pulse Resp B/P (MAP) Pulse Ox O2 Delivery O2 Flow Rate FiO2 11/13/18 11:57 97.9 82 16 123/82 (96) 96 11/13/18 09:18 Room Air Laboratory Tests Test 11/13/18 06:05 White Blood Count 4.8 K/UL (4.8-10.8) Red Blood Count 3.76 M/UL (4.20-5.40) L Hemoglobin 11.3 G/DL (12.0-16.0) L Hematocrit 34.0 % (37.0-47.0) L Mean Corpuscular Volume 91 FL (80-99) Mean Corpuscular Hemoglobin 30.0 PG (27.0-31.0) Mean Corpuscular Hemoglobin Concent 33.1 G/DL (32.0-36.0) Red Cell Distribution Width 12.0 % (11.6-14.8) Platelet Count 346 K/UL (150-450) Mean Platelet Volume 5.6 FL (6.5-10.1) L Neutrophils (%) (Auto) 47.2 % (45.0-75.0) Lymphocytes (%) (Auto) 30.7 % (20.0-45.0) Monocytes (%) (Auto) 10.0 % (1.0-10.0) Eosinophils (%) (Auto) 10.8 % (0.0-3.0) H Basophils (%) (Auto) 1.3 % (0.0-2.0) Erythrocyte Sedimentation Rate 34 MM/HR (0-20) H Sodium Level 140 MMOL/L (136-145) Potassium Level 3.6 MMOL/L (3.5-5.1) Chloride Level 104 MMOL/L (98-107) Carbon Dioxide Level 27 MMOL/L (21-32) Anion Gap 9 mmol/L (5-15) Blood Urea Nitrogen 4 mg/dL (7-18) L Creatinine 0.6 MG/DL (0.55-1.30) Estimat Glomerular Filtration Rate > 60 mL/min (>60) Glucose Level 116 MG/DL (74-106) H Calcium Level 8.6 MG/DL (8.5-10.1) Phosphorus Level 3.0 MG/DL (2.5-4.9) Magnesium Level 2.2 MG/DL (1.8-2.4) Total Bilirubin 0.2 MG/DL (0.2-1.0) Aspartate Amino Transf (AST/SGOT) 42 U/L (15-37) H Alanine Aminotransferase (ALT/SGPT) 21 U/L (12-78) Alkaline Phosphatase 57 U/L (46-116) C-Reactive Protein, Quantitative 3.3 mg/dL (0.00-0.90) H Total Protein 6.7 G/DL (6.4-8.2) Albumin 3.2 G/DL (3.4-5.0) L Globulin 3.5 g/dL Albumin/Globulin Ratio 0.9 (1.0-2.7) L Amylase Level 92 U/L (25-115) Lipase 962 U/L (73-393) H Intake and Output 11/12/18 11/13/18 19:00 07:00 Intake Total 862 ml 1400 ml Balance 862 ml 1400 ml Intake Oral 500 ml IV Total 862 ml 900 ml # Voids 2 2 # Bowel Movements 1 Objective Objective General: No acute distress, awake and alert HEENT: NCAT, sclera anicteric, PERRL, EOMI. Neck: Supple, no significant jugular venous distention, Lungs: Good inspiratory effort, clear to auscultation bilaterally, no Wheeze or Rales. Heart: Regular rate and rhythm, normal S1/S2, no murmur. Abdomen: soft, + tenderness, nondistended. Normoactive bowel sounds. / Rectal: Refused and deferred. Extremities: No Cyanosis , clubbing or edema. Neuro: A&O x 3, Able to move all extremities Skin: warm, no rashes or lesions Psych: Normal mood and affect Assessment/Plan Assessment/Plan Assessment/Plan Assessment/Plan Assessment/Plan 1. Acute pancreatitis. 2. History of alcohol abuse. 3. Epigastric pain. 4. Nausea with vomiting. 5. History of alcoholic gastritis. TREATMENT: 1. Epigastric pain/chronic pancreatitis. A Gastroenterology consultation has been obtained with Dr. Miles Ortega. The patient is currently receiving intravenous fluids. We will follow recommendations of GI, Dr. Ortega. 2. History of alcohol abuse. The patient is currently being offered Ativan p.r.n. withdrawal symptoms. Advance diet as tolerated Ike Richardson MD Nov 13, 2018 15:38
--- NOTE | 2018-11-13 16:15 | NUR ---
NURSE NOTES: Patient Left AMA,patient state she has a Court date tomorrow 11/14/18 and she can not miss.DR Caldwell and DR Richardson notified waiting for call back,patient is alert and oriented and she says she can not wait for the Doctor,it is getting late patient is aware of the risk of leaving AMA .IV out,hospital band removed.patient has her personal belongings.Patient state she will be careful because she wants to avoid having to come back to the hospital.Patient walked ,gait is steady.patient down stairs waiting for her ride .
--- NOTE | 2018-11-13 20:00 | General Progress Note ---
Assessment/Plan Assessment/Plan Assessment/Plan Problem List: (1) ETOH abuse ICD Codes: F10.10 - Alcohol abuse, uncomplicated SNOMED: 67039825 (2) Pancreatitis ICD Codes: K85.9 - Acute pancreatitis, unspecified SNOMED: 80877997 Assessment/Plan IVF banana bag pain control gradual diet fu labs d/c planning Subjective Allergies: Coded Allergies: IBUPROFEN (Verified Allergy, Mild, 08/25/18) Subjective Better today looking forward to her d/c (+) BM tolerating PO Objective Last 24 Hour Vital Signs Date Time Temp Pulse Resp B/P (MAP) Pulse Ox O2 Delivery O2 Flow Rate FiO2 11/13/18 11:57 97.9 82 16 123/82 (96) 96 11/13/18 09:18 Room Air 11/13/18 08:03 97.9 86 18 119/84 (96) 99 11/13/18 04:00 97.8 96 19 131/91 (104) 99 11/13/18 00:00 97.2 94 19 134/95 (108) 100 11/12/18 21:00 Room Air 11/12/18 20:00 97.7 97 20 146/97 (113) 100 Intake and Output 11/12/18 11/13/18 19:00 07:00 Intake Total 862 ml 1400 ml Balance 862 ml 1400 ml Intake Oral 500 ml IV Total 862 ml 900 ml # Voids 2 2 # Bowel Movements 1 Laboratory Tests 11/13/18 06:05: White Blood Count 4.8, Red Blood Count 3.76L, Hemoglobin 11.3L, Hematocrit 34.0L , Mean Corpuscular Volume 91, Mean Corpuscular Hemoglobin 30.0, Mean Corpuscular Hemoglobin Concent 33.1, Red Cell Distribution Width 12.0, Platelet Count 346, Mean Platelet Volume 5.6L, Neutrophils (%) (Auto) 47.2, Lymphocytes ( %) (Auto) 30.7, Monocytes (%) (Auto) 10.0, Eosinophils (%) (Auto) 10.8H, Basophils (%) (Auto) 1.3, Erythrocyte Sedimentation Rate 34H, Sodium Level 140, Potassium Level 3.6, Chloride Level 104, Carbon Dioxide Level 27, Anion Gap 9, Blood Urea Nitrogen 4L, Creatinine 0.6, Estimat Glomerular Filtration Rate > 60 , Glucose Level 116H, Calcium Level 8.6, Phosphorus Level 3.0, Magnesium Level 2.2, Total Bilirubin 0.2, Aspartate Amino Transf (AST/SGOT) 42H, Alanine Aminotransferase (ALT/SGPT) 21, Alkaline Phosphatase 57, C-Reactive Protein, Quantitative 3.3H, Total Protein 6.7, Albumin 3.2L, Globulin 3.5, Albumin/ Globulin Ratio 0.9L, Amylase Level 92, Lipase 962H Height (Feet): 5 Height (Inches): 1.00 Weight (Pounds): 143 Objective Obese AA woman NCAT supple CTA RRR abd soft ND no edema Roland Ernst MD Nov 13, 2018 20:00
--- NOTE | 2018-11-14 17:11 | Discharge Summary ---
Discharge Summary Discharge Summary _ DATE OF ADMISSION: 11/10/2018 DATE OF DISCHARGE: 11/13/2018 Patient signed AGAINST MEDICAL ADVICE REASON FOR ADMISSION: 33 years old female with past medical history of chronic pancreatitis, chronic alcoholic gastritis, alcohol abuse, presented with chief complaint of epigastric pain. Patient also reported intractable nausea and vomiting. Upon evaluation vital signs were stable. No leukocytosis, hemoglobin 13.3. Potassium 3.1. Stable renal parameters. Lipase greater than 2000. AST 48. Urine toxicology screen was positive for cocaine, marijuana and appendectomy. Urinalysis demonstrated +1 leukocyte esterase and few bacteria. Patient was admitted for further management. CONSULTANTS: pulmonary Dr. Robertson [facility]: Patient admitted to medical surgical floor. Patient started on the IV fluids with banana bag and kept n.p.o. Potassium was replaced GI consult was requested. Ativan was on board as needed for withdrawal symptoms. Pain management was addressed. Abdominal ultrasound revealed fatty liver and gallbladder sludge. Lipase was trending down. Amylase trended down to normal. Patient slowly started on clear liquid diet and was able to tolerate it. Bowel regimen instituted. GI prophylaxis provided. Antiemetic were on board as needed. Patient was counseled on abstinence from alcohol. Patient was counseled on abstinence from illicit street drugs. Patient decided to leave AGAINST MEDICAL ADVICE. Patient reported that he however she has a court date tomorrow and cannot miss it. Call was placed to attending physician. The risks and consequences of signing AGAINST MEDICAL ADVICE were discussed with patient in detail. Patient verbalized understanding, declined to wait for callback from attending physician, signed AMA form and left. FINAL DIAGNOSES: Acute pancreatitis Epigastric pain Nausea and vomiting History of alcoholic gastritis History of alcohol abuse I have been assigned to dictate discharge summary for this account. I was not involved in the patient's management. Leyla Arriaza NP Nov 14, 2018 17:11
== END 2018-11-13 16:15 | disposition left against medical advice (07) | DRG 282 ==
LOC: EMR 07:50 → EDBEDREQ 11:04 → 4E 11:30 → EDBEDREQ 12:07
DX: K85.20 Alcohol induced acute pancreatitis without necrosis or infection (principal); K70.0 Alcoholic fatty liver; F10.10 Alcohol abuse, uncomplicated; K29.20 Alcoholic gastritis without bleeding; K86.0 Alcohol-induced chronic pancreatitis; Z88.6 Allergy status to analgesic agent
CPT/HCPCS: 36415; 76700; 80053; 80061; 80307; 81003; 81025; 82150; 83690; 83735; 84100; 85025; 85651; 85730; 86140; 96361; 96374; 96375; 99285; J2405; J2765; J8499

== ENCOUNTER 2020-01-27 21:04 | Inpatient (IN) | payer MEDICAID ==
[~2020-01-27] VITALS: Ht 157.5 cm; Wt 114.3 kg
[2020-01-27 21:20] VITALS: BP 147/87
[2020-01-27] MEDS ORDERED: AMLODIPINE BESY10 MG ORAL (21:29)
[2020-01-27] MEDS ORDERED: CYMBALTA30 MG ORAL (21:29)
[2020-01-27] MEDS ORDERED: GABAPENTIN400 MG ORAL (21:29)
[2020-01-27] MEDS ORDERED: HYDROCHLOROTH12.5 MG ORAL (21:29)
[2020-01-27] MEDS ORDERED: BACLOFEN10 MG ORAL (21:29)
--- NOTE | 2020-01-27 21:37 | NUR ---
ED Nurse Note: Pt ambulated to ED from home c/o back pain, tingling that radiates to her legs causing difficulty walking, pt utilizing a wc/walker at times. Pt also reports constipation for several weeks. VSS. Pt placed on child monitor, ERMD at bedside.
[2020-01-27] MEDS ORDERED: DiphenhydrAMINE 50mg/ml Inj IVP ONE (21:45)
[2020-01-27] MEDS ORDERED: Metoclopramide 10mg/2ml Inj IVP ONE (21:45)
[2020-01-27] MEDS ORDERED: fentaNYL 100 mcg/2 mL IV ONE (21:45)
--- NOTE | 2020-01-27 21:52 | Emergency Room Report ---
History of Present Illness General Chief Complaint: Back Pain-No Injury Source: Patient, Family Member - Mother Present Illness HPI Patient presents with lower back pain. She has had several falling episodes. The last was yesterday. He finds herself weak when she gets up and tries to stabilize herself on her walker but then her legs give out. Yesterday she fell onto her right side injuring her right leg and her buttock. She did not hit her head. She has had episodes like this before. Work-up at one point revealed that she had tendency towards multiple sclerosis after an LP was done. In addition she has spinal stenosis. She has had cervical disc surgery in the past. Her right leg is chronically weaker than her left. She also states that she has been incontinent of urine and stool. She feels abdominal distention but not pain. She has had a chronic problem with her back pain however in the last 3 days is worsened. She rates the pain 9/10 at this time lower back radiating somewhat down her right leg. The patient was admitted in October 2018 for pancreatitis. She still drinks alcohol but has cut down. She has been drinking wine in the last 3 days. She denies take any pain medication at this time. She always feels feverish. He is also complaining about leg edema. She denies calf pain aside from hitting her the right leg when she fell. No chills, sore throat, palpitations, nausea, vomiting, dysuria, shortness of breath, rashes, visual changes, dizziness, headache. 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 Patient History Past Medical History: see triage record, old chart reviewed, other - Alleged positive test for multiple sclerosis Past Surgical History: appy, other - Cervical spine surgery Social History: Reports: smoking, alcohol use, drug use - Marijuana Social History Narrative Here with her mother Last Menstrual Period: 01/19/20 Now: No Reviewed Nursing Documentation: PMH: Agreed; PSxH: Agreed Nursing Documentation-PMH Past Medical History: No History, Except For Hx Cardiac Problems: No Hx Hypertension: No Hx Pacemaker: No Hx Diabetes: No Hx Dialysis: No Hx Neurological Problems: No Hx Cerebrovascular Accident: No Hx Seizures: No Review of Systems All Other Systems: negative except mentioned in HPI Physical Exam Vital Signs Date Time Temp Pulse Resp B/P (MAP) Pulse Ox O2 Delivery O2 Flow Rate FiO2 01/27/20 21:20 98.8 115 26 147/87 (107) 100 Room Air Sp02 EP Interpretation: reviewed, normal General Appearance: well appearing, no apparent distress, GCS 15 Head: normocephalic Eyes: bilateral eye normal inspection, bilateral eye PERRL, bilateral eye EOMI ENT: moist mucus membranes Neck: supple, no bony tend Respiratory: lungs clear, normal breath sounds Cardiovascular #1: regular rate, rhythm Cardiovascular #2: 2+ radial (R), 2+ dorsalis pedis (R), 2+ dorsalis pedis (L) Gastrointestinal: normal inspection, normal bowel sounds, non tender, no mass, non-distended, overweight Musculoskeletal: tender - Lumbar area, other - Straight leg raise positive on the right-hand side at 30 degrees. Neurologic: alert, receiving team member III-XII nml as tested, DTRs symmetric - But decreased, oriented x3, sensory intact, cerebellar normal, motor weakness - Lower extremities, right greater than left. Unclear whether this is voluntary., speech normal Psychiatric: depressed affect Reflexes: 1+ knee (R), 1+ knee (L); 0 ankle (R), 0 ankle (L) Skin: no rash, warm/dry Medical Decision Making Diagnostic Impression: Primary Impression: Leg weakness Qualified Codes: R29.898 - Other symptoms and signs involving the musculoskeletal system Additional Impressions: Incontinence Back pain Qualified Codes: M54.5 - Low back pain ER Course Patient presents with falling episodes, increased weakness, incontinence and back pain. Differential includes cauda equina syndrome, spinal stenosis, exacerbation of multiple sclerosis, electrolyte imbalance, occult infection amongst others. In addition there may be some opiate seeking behavior. Evaluation with EKG, chest x-ray, abdominal film and labs. Patient will be treated with gentle IV hydration. In addition analgesia will be ordered. Due to the level of disability the patient needs to come in to the hospital. EKG sinus tachycardia. Chest x-ray globular heart Abdominal film with increased stool load no evidence of obstruction. Spine appears essentially normal on this film. Labs unremarkable. Blood alcohol negative. Tox screen positive for marijuana. Patient improved with treatment. Patient still complaining complaining of weakness and back pain. Due to the possibility of cauda equina or other compressive syndromes involving the spine and multiple sclerosis MRI is indicated. In addition is quite disconcerting that she has falling episodes due to the weakness along with the incontinence. Hospitalization further evaluation is indicated. Discussed with Dr. Mistry who accepts admission. Laboratory Tests Test 01/27/20 21:55 01/27/20 23:40 White Blood Count 8.4 K/UL (4.8-10.8) Red Blood Count 3.77 M/UL (4.20-5.40) L Hemoglobin 10.2 G/DL (12.0-16.0) L Hematocrit 32.9 % (37.0-47.0) L Mean Corpuscular Volume 87 FL (80-99) Mean Corpuscular Hemoglobin 27.1 PG (27.0-31.0) Mean Corpuscular Hemoglobin Concent 31.1 G/DL (32.0-36.0) L Red Cell Distribution Width 16.3 % (11.6-14.8) H Platelet Count 424 K/UL (150-450) Mean Platelet Volume 6.7 FL (6.5-10.1) Neutrophils (%) (Auto) 54.8 % (45.0-75.0) Lymphocytes (%) (Auto) 33.3 % (20.0-45.0) Monocytes (%) (Auto) 3.4 % (1.0-10.0) Eosinophils (%) (Auto) 6.7 % (0.0-3.0) H Basophils (%) (Auto) 1.8 % (0.0-2.0) Sodium Level 138 MMOL/L (136-145) Potassium Level 3.8 MMOL/L (3.5-5.1) Chloride Level 101 MMOL/L (98-107) Carbon Dioxide Level 28 MMOL/L (21-32) Anion Gap 10 mmol/L (5-15) Blood Urea Nitrogen 11 mg/dL (7-18) Creatinine 1.1 MG/DL (0.55-1.30) Estimated Glomerular Filtration Rate > 60 mL/min (>60) Glucose Level 134 MG/DL (74-106) H Calcium Level 8.4 MG/DL (8.5-10.1) L Total Bilirubin 0.1 MG/DL (0.2-1.0) L Aspartate Amino Transferase (AST) 18 U/L (15-37) Alanine Aminotransferase (ALT) 17 U/L (12-78) Alkaline Phosphatase 64 U/L (46-116) Total Creatine Kinase 243 U/L (26-308) Total Protein 6.7 G/DL (6.4-8.2) Albumin 3.3 G/DL (3.4-5.0) L Globulin 3.4 g/dL Albumin/Globulin Ratio 1.0 (1.0-2.7) Thyroid Stimulating Hormone (TSH) 1.390 uiU/mL (0.358-3.740) Human Chorionic Gonadotropin, Qual Negative (NEGATIVE) Salicylates Level 5.7 ug/mL (2.8-20) Acetaminophen Level < 2 MCG/ML (10-30) L Serum Alcohol < 3 mg/dL Urine Color Yellow Urine Appearance Clear Urine pH 7 (4.5-8.0) Urine Specific [place] 1.015 (1.005-1.035) Urine Protein Negative (NEGATIVE) Urine Glucose (UA) Negative (NEGATIVE) Urine Ketones 1+ (NEGATIVE) H Urine Blood Negative (NEGATIVE) Urine Nitrite Negative (NEGATIVE) Urine Bilirubin Negative (NEGATIVE) Urine Urobilinogen 4 MG/DL (0.0-1.0) H Urine Leukocyte Esterase Negative (NEGATIVE) Urine Opiates Screen Negative (NEGATIVE) Urine Barbiturates Screen Negative (NEGATIVE) Phencyclidine (PCP) Screen Negative (NEGATIVE) Urine Amphetamines Screen Negative (NEGATIVE) Urine Benzodiazepines Screen Negative (NEGATIVE) Urine Cocaine Screen Negative (NEGATIVE) Urine Marijuana (THC) Screen Positive (NEGATIVE) H EKG Diagnostic Results Rate: tachycardiac Rhythm: NSR ST Segments: no acute changes Rhythm Strip Diag. Results Rhythm: no PVC's, no ectopy, other - st Chest X-Ray Diagnostic Results Chest X-Ray Diagnostic Results : Chest X-Ray Ordered: Yes # of Views/Limited/Complete: 1 View Indication: Chest Pain EP Interpretation: Yes Interpretation: no consolidation, no effusion, no pneumothorax, other - Increased heart Electronically Signed by: Electronically signed by Amanuel Baca MD Other X-Ray Diagnostic Results Other X-Ray Diagnostic Results : X-Ray ordered: abd # of Views/Limited Vs Complete: 2 View Indication: Other Interpretation: nonspecific bowel gas, no sbo, other - increased stool Impression: Other Electronically Signed by: Electronically signed by Amanuel Baca MD Last Vital Signs Date Time Temp Pulse Resp B/P (MAP) Pulse Ox O2 Delivery O2 Flow Rate FiO2 01/28/20 00:15 98.8 86 20 131/85 100 Room Air Status: improved Disposition: ADMITTED INPATIENT Condition: Serious Referrals: NON PHYSICIAN (PCP) Amanuel Baca MD Jan 27, 2020 21:52
[2020-01-27 22:37] LABS: BASOPHILS % (AUTO) 1.8 % (0.0-2.0); EOSINOPHILS % (AUTO) 6.7 % (0.0-3.0); HEMATOCRIT 32.9 % (37.0-47.0); HEMOGLOBIN 10.2 G/DL (12.0-16.0); LYMPHOCYTES % (AUTO) 33.3 % (20.0-45.0); MEAN CORPUSCULAR VOLUME 87 FL (80-99); MONOCYTES % (AUTO) 3.4 % (1.0-10.0); NEUTROPHILS % (AUTO) 54.8 % (45.0-75.0); PLATELET COUNT 424 K/UL (150-450); RED BLOOD COUNT 3.77 M/UL (4.20-5.40); RED CELL DISTRIBUTION WIDTH 16.3 % (11.6-14.8); WHITE BLOOD COUNT 8.4 K/UL (4.8-10.8)
--- NOTE | 2020-01-27 22:45 | NUR ---
ED Nurse Note: Pt to CT
[2020-01-27 22:54] LABS: ANION GAP 10 mmol/L (5-15); BLOOD UREA NITROGEN 11 mg/dL (7-18); CALCIUM 8.4 MG/DL (8.5-10.1); CARBON DIOXIDE 28 MMOL/L (21-32); CHLORIDE 101 MMOL/L (98-107); CREATININE 1.1 MG/DL (0.55-1.30); POTASSIUM 3.8 MMOL/L (3.5-5.1); SODIUM 138 MMOL/L (136-145)
[2020-01-27 23:05] LABS: ALANINE AMINOTRANSFERASE 17 U/L (12-78); ALBUMIN 3.3 G/DL (3.4-5.0); ALKALINE PHOSPHATASE 64 U/L (46-116); ASPARTATE AMINO TRANSFERASE 18 U/L (15-37); BILIRUBIN,TOTAL 0.1 MG/DL (0.2-1.0); CREATINE KINASE 243 U/L (26-308)
[2020-01-27] MEDS ORDERED: Miralax 17gm pkt ORAL PRN (23:15)
[2020-01-27] MEDS ORDERED: Milk of Magnesia 30ml Ud ORAL PRN (23:15)
--- NOTE | 2020-01-27 23:19 | Diagnostic Imaging Report ---
EXAM: XR Abdomen, 2 Views CLINICAL HISTORY: ABD DIST TECHNIQUE: Frontal view of the abdomen/pelvis with upright view of the abdomen. COMPARISON: None FINDINGS: Intraperitoneal space: No free air. Gastrointestinal tract: There is a moderate amount of stool throughout the colon. The bowel gas pattern is nonobstructive. Bones/joints: There is no acute fracture or dislocation. IMPRESSION: Nonobstructive bowel gas pattern.
--- NOTE | 2020-01-27 23:22 | Diagnostic Imaging Report ---
EXAM: XR Chest, 1 View CLINICAL HISTORY: ABD DIST TECHNIQUE: Frontal view of the chest. COMPARISON: None FINDINGS: Lungs: Unremarkable. No consolidation. Pleural space: Unremarkable. No pneumothorax. Heart: Unremarkable. No cardiomegaly. Mediastinum: Unremarkable. Bones/joints: No acute bony abnormality. IMPRESSION: No acute cardiopulmonary process.
--- NOTE | 2020-01-27 23:50 | NUR ---
telemetry technician called-will be here in 40 min.
[2020-01-28] VITALS (7 sets, daily range): BP systolic 128–142; BP diastolic 82–97
--- NOTE | 2020-01-28 00:15 | NUR ---
ED Nurse Note: Pt continues to rest quietly in bed, placed on cardiac monitoring, v/s taken, pt IV line out, states it came out while she was sleeping, new line started, pt has room for admission, waiting for ordered MRI before going to floor bed, belongings list completed, will medicate for pain and continue to closely monitor.
[2020-01-28 00:18] LABS: APPEARANCE,URINE CLEAR; BILIRUBIN, URINE NEGATIVE (NEGATIVE); GLUCOSE, URINE (UA) NEGATIVE (NEGATIVE); KETONES,URINE 1+ (NEGATIVE); LEUKOCYTE ESTERASE ,URINE NEGATIVE (NEGATIVE); NITRITE,URINE NEGATIVE (NEGATIVE); PH,URINE 7 (4.5-8.0); PROTEIN,URINE NEGATIVE (NEGATIVE); UROBILINOGEN,URINE 4 MG/DL (0.0-1.0)
[2020-01-28 00:20] LABS: COLOR,URINE YELLOW
[2020-01-28] MEDS ORDERED: fentaNYL 100 mcg/2 mL IV ONE (00:27)
--- NOTE | 2020-01-28 00:39 | NUR ---
ED Nurse Note: Pt is currently being taken to MRI via gurney, tp is awake and alert, IV site patent, NAD noted during pt transport to imaging.
[2020-01-28] MEDS ORDERED: Enoxaparin 40mg Inj SUBQ SCH (01:00)
--- NOTE | 2020-01-28 01:56 | Diagnostic Imaging Report ---
EXAM: MR Lumbar Spine Without Intravenous Contrast CLINICAL HISTORY: PAIN TECHNIQUE: Magnetic resonance images of the lumbar spine without intravenous contrast in multiple planes. COMPARISON: 10/04/2015 CT abdomen FINDINGS: Vertebrae: No acute fracture. Interspaces: Disc desiccation and mild disc height loss at L4-5. Spinal cord: Unremarkable. Normal signal. Soft tissues: No edema. Multiple follicles seen in the bilateral ovaries DISCS/SPINAL CANAL/NEURAL FORAMINA: Patient has a congenitally narrowed spinal canal with epidural lipomatosis which narrows the spinal canal at baseline. Spinal canal: Moderate spinal canal stenosis at L4-5 secondary to disc bulging and central disc protrusion measuring 3 mm. Remaining levels are patent without significant disc disease. Neural foramen: Mild right and moderate left foraminal stenosis at L4-5 secondary to disc bulging. Facet joints: No significant facet arthrosis. IMPRESSION: 1. Patient has a developmentally narrow spinal canal with epidural lipomatosis which narrows the canal at baseline. This superimposed with disc disease at L4-5 results in moderate spinal canal stenosis and bilateral foraminal stenosis as described. 2. No acute findings.
--- NOTE | 2020-01-28 02:12 | NUR ---
NURSE NOTES: Received report from MICHELLE Foreman in ER.
--- NOTE | 2020-01-28 02:20 | NUR ---
TRANSFER TO FLOOR: Patient transferred to as ordered, per Dr Mistry. Report given to MICHELLE Mejia. Belongings and medications given to . Family and or S/O informed of transfer.
--- NOTE | 2020-01-28 02:30 | NUR ---
NURSE NOTES: Patient arrived on a gurney from ER. Patient awake, alert, and verbally responsive but drowsy and easily falls asleep during the conversation. IV was removed by patient by accident, placed new IV on the right hand 22g. Patient tolerated well and verbalized understanding regards to IV insertion procedure. Skin intact. Bilateral lower extremities edematous. Verbalized back pain that radiates to the lower extremities, but patient is extremely drowsy at this time and denies need of another pain medication. Patient prefers to rest at the moment. Hydration and nutrition provided within available selection. Patient on regular diet order. Admission order was placed in by Dr. Mistry. Patient was oriented to the unit and the room. Call light provided within reach and encouraged to use. Bed placed at the lowest with alarm, brake, and siderails up for safety. Will continue to monitor and provide care as ordered.
[2020-01-28] MEDS ORDERED: WELLBUTRIN SR100 MG ORAL (03:14)
[2020-01-28] MEDS ORDERED: XANAX2 MG ORAL (03:14)
[2020-01-28] MEDS: oxyCODONE 5mg IR tab ORAL PRN ×4 (05:32→20:26)
--- NOTE | 2020-01-28 07:23 | NUR ---
HAND-OFF: Report given to MICHELLE White. Plan of care endorsed.
--- NOTE | 2020-01-28 07:30 | NUR ---
NURSE NOTES: Patient patient awake, alert,oriented x4, verbally responsive , denies pain or discomfort, no sign of distress.IVF infusing well, on fall precaution,Call light provided within reach and encouraged to use. Bed placed at the lowest with alarm, brake, and siderails up for safety. Will continue to monitor and provide care as ordered. cong membreno
[2020-01-28] MEDS: Docusate 100mg cap ORAL SCH ×2 (08:44→20:25)
[2020-01-28] MEDS: Enoxaparin 40mg Inj SUBQ SCH (08:45)
[2020-01-28] MEDS: DULoxetine 30mg cap ORAL SCH ×2 (09:19→17:36)
[2020-01-28] MEDS: hydroCHLOROthiazide 12.5mg TAB ORAL SCH (09:20)
[2020-01-28] MEDS: BuPROPion 75mg Tab ORAL SCH ×2 (10:43→20:25)
--- NOTE | 2020-01-28 10:55 | NUR ---
PT EVALUATION NOTE Patient seen for initial evaluation. Patient presents with generalized weakness and LE fatigue which impairs patient's ability to perform mobility tasks safely. Patient requires min assist for bed mobility and CGA for transfers with FWW. Patient able to ambulate 12 feet with FWW, slowed pace, inadequate bilateral knee and ankle flexion. Patient will benefit from skilled inpatient PT intervention to address strength and balance for improved level of functional mobility and safety. Recommend discharge home with home PT once medically cleared by MD. Patient has FWW and rollator at home. Addendum: 01/28/20 at 1227 by DEAN ESTES PT Amended: Links added.
--- NOTE | 2020-01-28 12:19 | History and Physical ---
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 States she has hx of multiple sclerosis, unclear what medications are, has have on and off weakness for last year. Pt prev followed at [facility] and would received steroids with some improvement in weakness. States for past week she has only been able to walk a few steps before her legs gave out. Yesterday she fall and landing on R leg and buttock, denies LOC of head injury. Pt also complaining of intermittent urinary incontinence for past year. In the ED MRI Lumbar spine was done, no cord compression noted. Denies chills, sore throat, palpitations, nausea, vomiting, dysuria, shortness of breath, rashes, visual changes, dizziness, headache. Allergies: Coded Allergies: IBUPROFEN (Verified Allergy, Mild, 08/25/18) COVID-19 Screening Contact w/high risk pt: No Recent Travel to affected area: No Experienced COVID-19 symptoms?: No Medication History Scheduled Amlodipine Besylate* (Amlodipine Besylate*), 20 MG ORAL DAILY, (Reported) Amoxicillin* (Amoxil*), 500 MG ORAL THREE TIMES A DAY Baclofen* (Baclofen*), 40 MG ORAL TWICE A DAY, (Reported) Bupropion Sr* (Wellbutrin Sr*), 75 MG ORAL TWICE A DAY, (Reported) Cyclobenzaprine Hcl* (Flexeril*), 10 MG ORAL THREE TIMES A DAY Duloxetine Hcl* (Cymbalta*), 30 MG ORAL TWICE A DAY, (Reported) Gabapentin* (Gabapentin*), 300 MG ORAL TWICE A DAY, (Reported) Hydrochlorothiazide* (Hydrochlorothiazide*), 12.5 MG ORAL DAILY, (Reported) Ibuprofen (Motrin), 600 MG ORAL THREE TIMES A DAY Loratadine/Pseudoephedrine (Claritin-D 12 Hour Tablet), 1 TAB ORAL EVERY 12 HOURS Methocarbamol* (Robaxin*), 500 MG PO TID Naproxen* (Naprosyn*), 375 MG ORAL TID Naproxen* (Naproxen*), 500 MG ORAL TWICE A DAY No Known Medications* (NKM - No Known Medications*), 0 ., (Reported) Ranitidine Hcl* (Zantac*), 150 MG ORAL TWICE A DAY Scheduled PRN Acetaminophen With Codeine (T#3) (Tylenol #3 Tab*), 1 TAB ORAL Q8H PRN for For Pain Alprazolam* (Xanax*), 3 MG ORAL TID PRN for PRN ANXIETY/AGITATION, (Reported) Codeine/Promethazine Hcl* (Promethazine-Codeine Syrup*), 5 ML ORAL Q6H PRN for For Cough Hydrocodone Bit/Acetaminophen 5-325* ([place] 5-325*), 1 TAB ORAL Q6H PRN for For Pain Ondansetron Odt* (Zofran Odt*), 4 MG ORAL Q6H PRN for Nausea & Vomiting Discontinued Medications Acetaminophen With Codeine (T#3) (Tylenol #3 Tab*), 1 TAB ORAL Q8H PRN for For Pain Discontinued Reason: MD discontinued med Hydrocodone/Acetaminophen 5-325* (Hydrocodone/Acetaminophen 5-325*), 1 TAB ORAL Q6H PRN for For Pain Discontinued Reason: MD discontinued med Ondansetron Odt* (Zofran Odt*), 4 MG ORAL Q6H PRN for Nausea & Vomiting Discontinued Reason: MD discontinued med Ondansetron Odt* (Zofran Odt*), 4 MG BC EVERY 6 HOURS PRN for Nausea & Vomiting Discontinued Reason: MD discontinued med Ranitidine Hcl* (Zantac*), 150 MG ORAL TWICE A DAY Discontinued Reason: MD discontinued med Ranitidine Hcl* (Zantac*), 150 MG ORAL TWICE A DAY Discontinued Reason: MD discontinued med Patient History History Provided By: Patient Healthcare decision maker Resuscitation status Advanced Directive on File Past Medical/Surgical History Past Medical/Surgical History: (1) Back pain (2) Leg weakness Review of Systems Constitutional: Reports: no symptoms, sweats Eye: Reports: no symptoms ENT: Reports: no symptoms Respiratory: Reports: no symptoms Cardiovascular: Reports: no symptoms, edema Gastrointestinal: Reports: no symptoms Genitourinary: Reports: no symptoms, incontinence - b/l LE weakness Musculoskeletal: Reports: other - b/l LE weakness worse than baseline Skin: Reports: no symptoms Psychiatric: Reports: no symptoms Neurological: Reports: no symptoms Endocrine: Reports: no symptoms Hematologic/Lymphatic: Reports: no symptoms Physical Exam General Appearance: WD/WN, no apparent distress, alert HEENT: normocephalic, atraumatic Neck: non-tender, normal alignment Respiratory/Chest: chest wall non-tender, lungs clear, normal breath sounds Cardiovascular/Chest: normal peripheral pulses, normal rate, regular rhythm Abdomen: normal bowel sounds, non tender, soft Extremities: moderate edema, other - B/L UE 5/5, B/L LE 2/5, sensation intact Skin Exam: normal pigmentation Neurologic: champion of sustainable design II-XII grossly normal, oriented x 3 Musculoskeletal: normal muscle bulk Last 24 Hour Vital Signs Date Time Temp Pulse Resp B/P (MAP) Pulse Ox O2 Delivery O2 Flow Rate FiO2 01/28/20 09:21 94 137/97 01/28/20 08:45 Room Air 01/28/20 08:00 98.1 94 17 137/97 (110) 98 01/28/20 03:03 98.2 95 20 139/85 (103) 95 01/28/20 02:57 Room Air 01/28/20 02:20 98.4 82 16 128/82 100 Room Air 01/28/20 02:20 98.8 86 20 131/85 100 Room Air 01/28/20 00:15 98.8 86 20 131/85 100 Room Air 01/27/20 21:20 98.8 115 26 147/87 (107) 100 Room Air 01/27/20 21:20 98.8 107 26 147/87 100 Room Air Intake and Output 01/27/20 01/28/20 19:00 07:00 Intake Total 920 ml Output Total 300 ml Balance 620 ml Intake Oral 480 ml IV Total 440 ml Output Urine Total 300 ml # Voids 1 Laboratory Tests Test 01/27/20 21:55 01/27/20 23:40 White Blood Count 8.4 K/UL (4.8-10.8) Red Blood Count 3.77 M/UL (4.20-5.40) L Hemoglobin 10.2 G/DL (12.0-16.0) L Hematocrit 32.9 % (37.0-47.0) L Mean Corpuscular Volume 87 FL (80-99) Mean Corpuscular Hemoglobin 27.1 PG (27.0-31.0) Mean Corpuscular Hemoglobin Concent 31.1 G/DL (32.0-36.0) L Red Cell Distribution Width 16.3 % (11.6-14.8) H Platelet Count 424 K/UL (150-450) Mean Platelet Volume 6.7 FL (6.5-10.1) Neutrophils (%) (Auto) 54.8 % (45.0-75.0) Lymphocytes (%) (Auto) 33.3 % (20.0-45.0) Monocytes (%) (Auto) 3.4 % (1.0-10.0) Eosinophils (%) (Auto) 6.7 % (0.0-3.0) H Basophils (%) (Auto) 1.8 % (0.0-2.0) Sodium Level 138 MMOL/L (136-145) Potassium Level 3.8 MMOL/L (3.5-5.1) Chloride Level 101 MMOL/L (98-107) Carbon Dioxide Level 28 MMOL/L (21-32) Anion Gap 10 mmol/L (5-15) Blood Urea Nitrogen 11 mg/dL (7-18) Creatinine 1.1 MG/DL (0.55-1.30) Estimat Glomerular Filtration Rate > 60 mL/min (>60) Glucose Level 134 MG/DL (74-106) H Calcium Level 8.4 MG/DL (8.5-10.1) L Total Bilirubin 0.1 MG/DL (0.2-1.0) L Aspartate Amino Transf (AST/SGOT) 18 U/L (15-37) Alanine Aminotransferase (ALT/SGPT) 17 U/L (12-78) Alkaline Phosphatase 64 U/L (46-116) Total Creatine Kinase 243 U/L (26-308) Total Protein 6.7 G/DL (6.4-8.2) Albumin 3.3 G/DL (3.4-5.0) L Globulin 3.4 g/dL Albumin/Globulin Ratio 1.0 (1.0-2.7) Thyroid Stimulating Hormone (TSH) 1.390 uiU/mL (0.358-3.740) Human Chorionic Gonadotropin, Qual Negative (NEGATIVE) Salicylates Level 5.7 ug/mL (2.8-20) Acetaminophen Level < 2 MCG/ML (10-30) L Serum Alcohol < 3 mg/dL Urine Color Yellow Urine Appearance Clear Urine pH 7 (4.5-8.0) Urine Specific [place] 1.015 (1.005-1.035) Urine Protein Negative (NEGATIVE) Urine Glucose (UA) Negative (NEGATIVE) Urine Ketones 1+ (NEGATIVE) H Urine Blood Negative (NEGATIVE) Urine Nitrite Negative (NEGATIVE) Urine Bilirubin Negative (NEGATIVE) Urine Urobilinogen 4 MG/DL (0.0-1.0) H Urine Leukocyte Esterase Negative (NEGATIVE) Urine Opiates Screen Negative (NEGATIVE) Urine Barbiturates Screen Negative (NEGATIVE) Phencyclidine (PCP) Screen Negative (NEGATIVE) Urine Amphetamines Screen Negative (NEGATIVE) Urine Benzodiazepines Screen Negative (NEGATIVE) Urine Cocaine Screen Negative (NEGATIVE) Urine Marijuana (THC) Screen Positive (NEGATIVE) H Height (Feet): 5 Height (Inches): 2.00 Weight (Pounds): 255 Medications Current Medications Medications (Trade) Dose Ordered Sig/Lulu Route PRN Reason Start Time Stop Time Status Last Admin Dose Admin Acetaminophen (Tylenol) 650 mg Q4H PRN ORAL Mild Pain (Pain Scale 1-3) 01/27/20 23:15 02/26/20 23:14 Acetaminophen (Tylenol) 650 mg Q4H PRN ORAL Temp >100.5 01/27/20 23:15 02/26/20 23:14 Acetaminophen/ Hydrocodone Bitart ([place] 5/325) 1 tab Q6H PRN ORAL For Pain 01/28/20 09:00 02/04/20 08:59 Amlodipine Besylate (Norvasc) 20 mg DAILY ORAL 01/28/20 09:00 02/27/20 08:59 01/28/20 09:21 Baclofen (Lioresal) 40 mg TWICE A DAY ORAL 01/28/20 09:00 02/27/20 08:59 01/28/20 09:19 Bisacodyl (Dulcolax) 10 mg DAILYPRN PRN RECTAL Constipation 01/27/20 23:15 04/26/20 23:14 Bupropion HCl (Wellbutrin) 75 mg Q12HR ORAL 01/28/20 10:00 02/27/20 09:59 01/28/20 10:43 Dextrose (Dextrose 50%) 25 ml Q30M PRN IV Hypoglycemia 01/27/20 23:15 04/26/20 23:14 Dextrose (Dextrose 50%) 50 ml Q30M PRN IV Hypoglycemia 01/27/20 23:15 04/26/20 23:14 Docusate Sodium (Colace) 100 mg EVERY 12 HOURS ORAL 01/28/20 09:00 02/27/20 08:59 01/28/20 08:44 Duloxetine HCl (Cymbalta) 30 mg TWICE A DAY ORAL 01/28/20 09:00 04/27/20 08:59 01/28/20 09:19 Enoxaparin Sodium (Lovenox) 40 mg DAILY SUBQ 01/28/20 09:00 04/27/20 08:59 01/28/20 08:45 Gabapentin (Neurontin) 300 mg TWICE A DAY ORAL 01/28/20 09:00 02/27/20 08:59 01/28/20 09:19 Hydrochlorothiazide (Hydrodiuril) 12.5 mg DAILY ORAL 01/28/20 09:00 02/27/20 08:59 01/28/20 09:20 Magnesium Hydroxide (Mom) 30 ml HSPRN PRN ORAL Constipation 01/27/20 23:15 02/26/20 23:14 Ondansetron HCl (Zofran) 4 mg Q6H PRN IVP Nausea & Vomiting 01/27/20 23:15 02/26/20 23:14 Oxycodone HCl (Roxicodone) 10 mg Q4H PRN ORAL Breakthrough Pain 01/27/20 23:15 02/03/20 23:14 01/28/20 09:26 Polyethylene Glycol (Miralax) 17 gm DAILYPRN PRN ORAL Constipation 01/27/20 23:15 02/26/20 23:14 Sodium Chloride 1,000 ml @ 100 mls/hr Q10H IV 01/27/20 21:45 02/26/20 21:44 01/28/20 06:09 Assessment/Plan Status: stable Assessment/Plan: 34 year old F with PMH of MS and 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 Discussed with RN at bedside 29 spent on counseling and care coordination. In additional 35 min in addition to the usual care above I spent additional time reviewing records in the EMR including physician documentation, nursing documentation, laboratory results, imaging and other clinical documentation. Time of note may not reflect time patient was seen. Sun Hartmann MD Jan 28, 2020 12:19
[2020-01-28] MEDS ORDERED: Gadavist 7.5mMol/7.5ml vial IV PRN (12:30)
[2020-01-28] MEDS: HYDROcodone/Acetamin 5/325 tab ORAL PRN (17:41)
--- NOTE | 2020-01-28 19:23 | NUR ---
HAND-OFF: Report given to Ms Jeffrey membreno rn .
--- NOTE | 2020-01-28 19:24 | NUR ---
NURSE NOTES: Patient in bed, awake, and alert x4. On room air with no signs of distress or SOB. IV intact and running IVF as ordered. Bed locked and in lowest position. Bed alarm on. Call light within reach. Will continue to follow plan of care.
[2020-01-29] VITALS: BP 137/91
[2020-01-29 04:00] VITALS: BP 131/85
--- NOTE | 2020-01-29 04:30 | NUR ---
NURSE NOTES: Patient's IV noted to be on the bedside table. When asked if I may reinsert, patient refused stating "I'm not getting anything through my IV anymore". Dr. Mistry made aware and said patient OK without IV for now. New orders received.
[2020-01-29] MEDS: oxyCODONE 5mg IR tab ORAL PRN ×3 (04:49→19:50)
--- NOTE | 2020-01-29 06:00 | NUR ---
NURSE NOTES: Patient C/O generalized itching. Requesting Benadryl. Spoke with Dr. Mistry. New orders received.
--- NOTE | 2020-01-29 07:59 | NUR ---
NURSE NOTES: Report received from MICHELLE Golden. Pt awake in bed, A and O x 4, verbal and able to make needs known, no SOB or c/o any discomfort at this time, bed in lowest position with breaks engaged and alarm on, NO IV line at this time, MD Mistry is aware, will continue to monitor and proceed with plan of care, call light within reach.
[2020-01-29 08:00] VITALS: BP 134/82
[2020-01-29] MEDS: DULoxetine 30mg cap ORAL SCH ×2 (08:30→17:46)
[2020-01-29] MEDS: hydroCHLOROthiazide 12.5mg TAB ORAL SCH (08:30)
[2020-01-29] MEDS: DiphenhydrAMINE 25mg Tab ORAL PRN (08:30)
[2020-01-29] MEDS: BuPROPion 75mg Tab ORAL SCH ×2 (08:30→20:38)
[2020-01-29] MEDS: HYDROcodone/Acetamin 5/325 tab ORAL PRN ×3 (08:31→23:15)
[2020-01-29] MEDS: Enoxaparin 40mg Inj SUBQ SCH (08:32)
[2020-01-29] MEDS: Docusate 100mg cap ORAL SCH ×2 (08:33→20:38)
--- NOTE | 2020-01-29 09:22 | NUR ---
*-* INSURANCE *-* ALL AVAILABLE CLINICALS HAVE BEEN FAXED TO: [facility] F: [phone] Addendum: 01/29/20 at 1129 by ABEL GAYTAN CM REF# [id number]
--- NOTE | 2020-01-29 11:59 | NUR ---
*-*DISCHARGE PLANNING*-* PATIENT HAS BEEN REFERRED TO: [facility] P: [phone] F: [phone]
[2020-01-29 12:00] VITALS: BP 135/90
--- NOTE | 2020-01-29 12:17 | General Progress Note ---
Assessment/Plan Status: stable Subjective Date patient seen: Jan 29, 2020 Time patient seen: 11:30 Allergies: Coded Allergies: IBUPROFEN (Verified Allergy, Mild, 08/25/18) Objective Last 24 Hour Vital Signs Date Time Temp Pulse Resp B/P (MAP) Pulse Ox O2 Delivery O2 Flow Rate FiO2 01/29/20 09:10 97.5 01/29/20 09:00 Room Air 01/29/20 08:30 88 134/82 01/29/20 08:00 97.5 88 18 134/82 (99) 96 01/29/20 04:00 97.3 89 18 131/85 (100) 98 01/29/20 00:00 98.0 87 18 137/91 (106) 98 01/28/20 20:51 Room Air 01/28/20 20:00 98.5 90 18 135/91 (106) 98 01/28/20 16:00 98.4 79 18 131/89 (103) 96 Intake and Output 01/28/20 01/29/20 19:00 07:00 Intake Total 1140 ml 480 ml Output Total 550 ml Balance 590 ml 480 ml Intake Oral 480 ml IV Total 1140 ml Output Urine Total 550 ml # Voids 2 3 Height (Feet): 5 Height (Inches): 2.00 Weight (Pounds): 255 Neri Zuniga MD Jan 29, 2020 12:17
--- NOTE | 2020-01-29 12:21 | NUR ---
INTERQUAL CRITERIA MET
[2020-01-29] MEDS ORDERED: Gadavist 7.5mMol/7.5ml vial IV PRN (12:30)
[2020-01-29] MEDS ORDERED: Milk of Magnesia 30ml Ud ORAL SCH (12:30)
--- NOTE | 2020-01-29 12:30 | General Progress Note ---
Assessment/Plan Problem List: (1) Back pain ICD Codes: M54.9 - Dorsalgia, unspecified SNOMED: 846823619 Qualifiers: Qualified Codes: M54.5 - Low back pain (2) Leg weakness ICD Codes: R29.898 - Other symptoms and signs involving the musculoskeletal system SNOMED: 974713761 Qualifiers: Qualified Codes: R29.898 - Other symptoms and signs involving the musculoskeletal system Status: stable Assessment/Plan: Ms. Rodriguez is a 34 year old female with hx of PTSD, depression, MS (diagnosed 2018), chronic abdominal spasms/pain, bilateral leg weakness, hip tightness (R > L), here with worsening weakness, and abdominal spasms #Hx MS #Acute on chronic LLE weakness and urinary incontinence, r/o transverse myelitis #Congenital epidural lipomatosis with narrowed spinal canal Per patient, dx was in 05/2019, at [place], s/p 3 rounds of steroids treatment. Presenting sx's include visual change, urianry incontinence, leg weakness. Leg weakness never got better, however. -Neurology (Sandra) consulted. appreciate recs. -MRI lumbar spine with known stenosis. -MRI b/l hip ordered -MRI brain ordered. -will hold on steroids -PT #Constipation #Abdominal spasms, acute on chronic -BM regimen. -GI consulted. appreciate recs. -unclear etiology of abdominal spasms. #HTN -Cont Norvasc -Cont HCTZ #Depression #PTSD -cont wellbutryn -cont duloxetine. time spent on encounter, 37 mins, >50% on counseling and coordination of care. Extra 35 minutes spent on chart review of EMR records, including safety and health consultant notes, labs, imaging, medications. Subjective Date patient seen: Jan 29, 2020 Time patient seen: 11:30 ROS Limited/Unobtainable: No Constitutional: Reports: no symptoms, chills, diaphoresis, fever, malaise, weakness, other HEENT: Denies: no symptoms, eye pain, blurred vision, tearing, double vision, ear pain, ear discharge, nose pain, nose congestion, throat pain, throat swelling, mouth pain, mouth swelling, other Cardiovascular: Denies: no symptoms, chest pain, edema, irregular heart rate, lightheadedness, palpitations, syncope, other Respiratory: Denies: no symptoms, cough, orthopnea, shortness of breath, SOB with excertion, SOB at rest, sputum, stridor, wheezing, other Gastrointestinal/Abdominal: Reports: abdominal pain, constipated, other - spasms Genitourinary: Denies: no symptoms, burning, discharge, frequency, flank pain, hematuria, incontinence, pain, urgency, other Neurologic/Psychiatric: Reports: no symptoms, anxiety, depressed, emotional problems, headache, numbness, paresthesia, pre-existing deficit, seizure, tingling, tremors, weakness, other Endocrine: Denies: no symptoms, excessive sweating, flushing, intolerance to cold, intolerance to heat, increased hunger, increased thirst, increased urine, unexplained weight gain, unexplained weight loss, other Hematologic/Lymphatic: Denies: no symptoms, anemia, easy bleeding, easy bruising, other Allergies: Coded Allergies: IBUPROFEN (Verified Allergy, Mild, 08/25/18) Subjective resting in bed, watching TV. Still having bilateral leg weakness, "hip tightness ", worse on the right. also having episodic abd spasms, that last for minutes at a time, every 1-2 hours. constipated for 4 days. no f/c, cough, SOB, chest pain Objective Last 24 Hour Vital Signs Date Time Temp Pulse Resp B/P (MAP) Pulse Ox O2 Delivery O2 Flow Rate FiO2 01/29/20 09:10 97.5 01/29/20 09:00 Room Air 01/29/20 08:30 88 134/82 01/29/20 08:00 97.5 88 18 134/82 (99) 96 01/29/20 04:00 97.3 89 18 131/85 (100) 98 01/29/20 00:00 98.0 87 18 137/91 (106) 98 01/28/20 20:51 Room Air 01/28/20 20:00 98.5 90 18 135/91 (106) 98 01/28/20 16:00 98.4 79 18 131/89 (103) 96 Intake and Output 01/28/20 01/29/20 19:00 07:00 Intake Total 1140 ml 480 ml Output Total 550 ml Balance 590 ml 480 ml Intake Oral 480 ml IV Total 1140 ml Output Urine Total 550 ml # Voids 2 3 Laboratory Tests Test 01/27/20 21:55 01/27/20 23:40 White Blood Count 8.4 K/UL (4.8-10.8) Red Blood Count 3.77 M/UL (4.20-5.40) L Hemoglobin 10.2 G/DL (12.0-16.0) L Hematocrit 32.9 % (37.0-47.0) L Mean Corpuscular Volume 87 FL (80-99) Mean Corpuscular Hemoglobin 27.1 PG (27.0-31.0) Mean Corpuscular Hemoglobin Concent 31.1 G/DL (32.0-36.0) L Red Cell Distribution Width 16.3 % (11.6-14.8) H Platelet Count 424 K/UL (150-450) Mean Platelet Volume 6.7 FL (6.5-10.1) Neutrophils (%) (Auto) 54.8 % (45.0-75.0) Lymphocytes (%) (Auto) 33.3 % (20.0-45.0) Monocytes (%) (Auto) 3.4 % (1.0-10.0) Eosinophils (%) (Auto) 6.7 % (0.0-3.0) H Basophils (%) (Auto) 1.8 % (0.0-2.0) Sodium Level 138 MMOL/L (136-145) Potassium Level 3.8 MMOL/L (3.5-5.1) Chloride Level 101 MMOL/L (98-107) Carbon Dioxide Level 28 MMOL/L (21-32) Anion Gap 10 mmol/L (5-15) Blood Urea Nitrogen 11 mg/dL (7-18) Creatinine 1.1 MG/DL (0.55-1.30) Estimated Glomerular Filtration Rate > 60 mL/min (>60) Glucose Level 134 MG/DL (74-106) H Calcium Level 8.4 MG/DL (8.5-10.1) L Total Bilirubin 0.1 MG/DL (0.2-1.0) L Aspartate Amino Transferase (AST) 18 U/L (15-37) Alanine Aminotransferase (ALT) 17 U/L (12-78) Alkaline Phosphatase 64 U/L (46-116) Total Creatine Kinase 243 U/L (26-308) Total Protein 6.7 G/DL (6.4-8.2) Albumin 3.3 G/DL (3.4-5.0) L Globulin 3.4 g/dL Albumin/Globulin Ratio 1.0 (1.0-2.7) Thyroid Stimulating Hormone (TSH) 1.390 uiU/mL (0.358-3.740) Human Chorionic Gonadotropin, Qual Negative (NEGATIVE) Salicylates Level 5.7 ug/mL (2.8-20) Acetaminophen Level < 2 MCG/ML (10-30) L Serum Alcohol < 3 mg/dL Urine Color Yellow Urine Appearance Clear Urine pH 7 (4.5-8.0) Urine Specific [place] 1.015 (1.005-1.035) Urine Protein Negative (NEGATIVE) Urine Glucose (UA) Negative (NEGATIVE) Urine Ketones 1+ (NEGATIVE) H Urine Blood Negative (NEGATIVE) Urine Nitrite Negative (NEGATIVE) Urine Bilirubin Negative (NEGATIVE) Urine Urobilinogen 4 MG/DL (0.0-1.0) H Urine Leukocyte Esterase Negative (NEGATIVE) Urine Opiates Screen Negative (NEGATIVE) Urine Barbiturates Screen Negative (NEGATIVE) Phencyclidine (PCP) Screen Negative (NEGATIVE) Urine Amphetamines Screen Negative (NEGATIVE) Urine Benzodiazepines Screen Negative (NEGATIVE) Urine Cocaine Screen Negative (NEGATIVE) Urine Marijuana (THC) Screen Positive (NEGATIVE) H Height (Feet): 5 Height (Inches): 2.00 Weight (Pounds): 255 General Appearance: WD/WN, no apparent distress, alert EENT: PERRL/EOMI Neck: supple Cardiovascular: normal rate, regular rhythm, no gallop/murmur Respiratory/Chest: lungs clear, normal breath sounds, no respiratory distress Abdomen: normal bowel sounds, non tender, soft Extremities: normal range of motion, non-tender Neurologic: alert, oriented x 3 Neri Zuniga MD Jan 29, 2020 12:30
[2020-01-29] MEDS ORDERED: Bisacodyl EC 5mg tab ORAL SCH (12:31)
--- NOTE | 2020-01-29 14:12 | General Progress Note ---
Assessment/Plan Problem List: (1) Constipation ICD Codes: K59.00 - Constipation, unspecified SNOMED: 17873176 (2) S/P appendectomy ICD Codes: Z90.49 - Acquired absence of other specified parts of digestive tract SNOMED: 41228539, 838527684 (3) ETOH abuse ICD Codes: F10.10 - Alcohol abuse, uncomplicated SNOMED: 77531110 (4) Gastritis ICD Codes: K29.70 - Gastritis, unspecified, without bleeding SNOMED: 3966179 (5) Opiate use ICD Codes: F11.90 - Opioid use, unspecified, uncomplicated SNOMED: 200444540 (6) Abdominal pain ICD Codes: R10.9 - Unspecified abdominal pain SNOMED: 73232009 (7) Back pain ICD Codes: M54.9 - Dorsalgia, unspecified SNOMED: 075715449 Qualifiers: Qualified Codes: M54.5 - Low back pain Status: stable Assessment/Plan: bowel regimen abd x ray reviewed add bentyl prn will fu Subjective Allergies: Coded Allergies: IBUPROFEN (Verified Allergy, Mild, 08/25/18) Objective Last 24 Hour Vital Signs Date Time Temp Pulse Resp B/P (MAP) Pulse Ox O2 Delivery O2 Flow Rate FiO2 01/29/20 12:00 97.2 93 18 135/90 (105) 95 01/29/20 09:10 97.5 01/29/20 09:00 Room Air 01/29/20 08:30 88 134/82 01/29/20 08:00 97.5 88 18 134/82 (99) 96 01/29/20 04:00 97.3 89 18 131/85 (100) 98 01/29/20 00:00 98.0 87 18 137/91 (106) 98 01/28/20 20:51 Room Air 01/28/20 20:00 98.5 90 18 135/91 (106) 98 01/28/20 16:00 98.4 79 18 131/89 (103) 96 Intake and Output 01/28/20 01/29/20 19:00 07:00 Intake Total 1140 ml 480 ml Output Total 550 ml Balance 590 ml 480 ml Intake Oral 480 ml IV Total 1140 ml Output Urine Total 550 ml # Voids 2 3 Height (Feet): 5 Height (Inches): 2.00 Weight (Pounds): 255 General Appearance: alert EENT: PERRL/EOMI Neck: supple Cardiovascular: normal rate Abdomen: normal bowel sounds, non tender, soft Extremities: non-tender Miles Ortega MD Jan 29, 2020 14:12
[2020-01-29] MEDS ORDERED: Dicyclomine 10mg Cap ORAL PRN (14:15)
--- NOTE | 2020-01-29 15:09 | NUR ---
*-*DISCHARGE PLANING*-* PATIENT IS TO BE DISCHARGED HOME Addendum: 01/29/20 at 1517 by GREG BUSTAMANTE CM -*DISCHARGE PLANING*-* PATIENT IS TO BE DISCHARGED HOME UPON DISCHARGE.
[2020-01-29 16:00] VITALS: BP 136/90
--- NOTE | 2020-01-29 16:11 | NUR ---
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 98.5 HR 115 RR 26 B/P 147/87 URINE TOX= POSITIVE FOR THC CXR= NEGATIVE ABD X-RAY= NONOBSTRUCTIVE BOWEL GAS LUMBAR SPINE X-RAY- NO ACUTE FINDINGS IS: BENADRYL IV IV BOLUS NS X 2 LITERS FENTANYL ADMITTED TO MED/SURG MED/SURG STATUS DCP RETURN HOME
--- NOTE | 2020-01-29 19:41 | NUR ---
HAND-OFF: Report given to MICHELLE Whelan and MICHELLE Sy.
[2020-01-29 20:00] VITALS: BP 120/83
--- NOTE | 2020-01-29 20:10 | NUR ---
NURSE NOTES: Received pt. awake, alert and oriented, in high fowlers position, denies any pain at this time. With ivhl on Rt. ac, patent and intact. Call light within reach.
--- NOTE | 2020-01-29 21:15 | Consultation ---
Consult Note Consult Note [facility] NEUROLOGY CONSULTATION January 29, [address] Zuniga, I evaluated Ms. Rodriguez and my assessement is as follows. HISTORY: Ms. Crystal Rodriguez is a 34-year-old, right-handed, black lady, who does have a past history of hypertension, cervical and lumbosacral spine disease for which she has had anterior cervical discectomy and fusion done in the past, and multiple sclerosis for which she is on no disease modifying agent. Approximately a year ago she was diagnosed with multiple sclerosis after she developed weakness and altered sensations in her right lower extremity and then both lower extremities associated with bowel and bladder incontinence. He was evaluated for these problems at [facility] and after MRI imaging of the brain and spine and a lumbar puncture the diagnosis of multiple sclerosis was made. She was started on steroids and improved. However soon after going home she had a relapse of similar symptoms and had to be given another course of steroids. She then did relatively well but approximately 1 week ago her legs again started to get weak, sensations in the lower extremities got worse, and she started becoming incontinent. As a result of these problems she presented to the [facility] emergency room and has since been admitted. On admission an MRI scan of the lumbosacral spine was performed and revealed moderate spinal stenosis at the L4-5 level associated with a congenitally small canal and epidural lipomatosis. At this point in time Ms. Rodriguez complains of altered sensations starting in her abdomen and going all the way down into both legs, spasms in her low back and legs, weakness in both legs more marked on the right than on the left, and urinary incontinence. MRI scans of the brain cervical and thoracic spine have been ordered but have not been done yet. PAST HISTORY: Hypertension. Pancreatitis. Cervical and lumbosacral spine disease for which she has had anterior cervical discectomy and fusion done Multiple sclerosis for which she is on no disease modifying agent. FAMILY HISTORY: Hypertension runs in the family. PERSONAL HISTORY: Home: She lives at home with her mother. 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 Habits: She smokes 1 cigarette/day. She drinks approximately 2 alcoholic drinks in a week. She denies use of any illicit drugs. ALLERGIES: Is allergic to ibuprofen. NEUROLOGIC REVIEW OF SYSTEMS: Benign. PHYSICAL EXAMINATION: GENERAL: She is a well-developed, well-nourished, obese, black lady, lying in bed, in no acute distress. VITAL SIGNS: Pulse: 99/minute and regular. Blood Pressure: 120/83 mm of Hg. Respirations: 18/minute Temperature: 97.9 F HEAD: Normocephalic and atraumatic. NECK: No neck rigidity was observed. EENT: Benign. SPINE: Cervical, thoracic and lumbosacral spine revealed no point tenderness. Range of motion was decreased in the entire spine. NEUROLOGIC EXAMINATION: MENTAL STATUS EXAMINATION: The patient was alert and awake. The patient was oriented to person, place and time. The patient was able to recall 3/3 words immediately, could only remember 2/3 after 1 minute and after 3 minutes, even with hints.. The patient was able to remember Presidents Trump through [place] only. The patient's mathematical skills were good. The patient's visuospatial function was preserved. SPEECH: No dysarthria was noted. LANGUAGE: No aphasia was noted. CRANIAL NERVE EXAMINATION: II: The visual antonio were intact to confrontation testing. III, IV, : External ocular movements were full and pupils 3 mm in diameter equal, round, regular and reactive to light. V: The facial sensations were normal, and the temporales, masseters and pterygoids functioned normally. VII: The facial expressions were normal and no facial asymmetry was seen. VIII: The patient was able to hear well bilaterally and had no nystagmus. IX: The palate moved symmetrically on phonation. X: There was no hoarseness of voice. XI: The sternocleidomastoids and trapezii functioned normally. XII: The tongue was in the midline without any fasciculations or atrophy. MOTOR SYSTEM: The tone was normal in both upper extremities but spastic in both lower extremities. Examination of muscle mass revealed no focal wasting. Examination of power revealed G 5/5 power in both upper extremities. In the lower extremities she had: Iliopsoas G 2/5 right and G 3/5 left Quadriceps G 4/5 right and G 5/5 left Hamstrings G 4-/5 right and G 4+/5 left Ankles and toes: G 5-/5 bilaterally SENSORY EXAMINATION: She had altered sensations to pinprick and light touch with a T8 level on the right side and T10 level on the left side. Position sense was diminished in the toes bilaterally. COORDINATION: Eokmbe-pq-brso was performed well bilaterally. She was unable to perform ybld-su-otny testing. REFLEXES: 2+ and bilaterally symmetric at the biceps, triceps, and brachioradialis. 3+ at both knees. 0 at both ankles. The plantar responses were flexor bilaterally. STANCE & GAIT: Could not be tested. ABNORMAL MOVEMENTS: None DIAGNOSTIC IMPRESSION: 1. Ms. Crystal Rodriguez is a 34-year-old, right-handed, black lady, who does have a past history of hypertension, cervical and lumbosacral spine disease for which she has had anterior cervical discectomy and fusion done in the past, and multiple sclerosis for which she is on no disease modifying agent. 2. Approximately 1 week ago her legs started to get weaker, sensations in the lower extremities got worse, and she started becoming incontinent. As a result of these problems she presented to the [facility] emergency room and has since been admitted. 3. 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 4. The patient's history and neurological examination are consistent with dysfunction involving the thoracic spinal cord. This dysfunction could either be related to an exacerbation of multiple sclerosis or local pathology involving that area. RECOMMENDATIONS: 1. Agree with management thus far. 2. We will try to obtain imaging studies and lumbar puncture results from [facility]. 3. Agree with obtaining MRI scan of the brain cervical and thoracic spine without and with gadolinium to evaluate the patient for an acute exacerbation of multiple sclerosis. 4. Start patient on Solu-Medrol 1 g intravenously for the next 3 days. 5. Mobilize the patient with the help of Physical Therapy Thank you for entrusting me to take care of Ms. Rodriguez' Neurologic needs. I shall follow her with you. Sincerely, Pj Flores M.D., M.S.P.H. Neurologist & Clinical Neurophysiologist Pj Flores MD Jan 29, 2020 21:15
[2020-01-29] MEDS: methylPREDNISolone Sod Succ 1,000 MG in NS 275 ML IVPB SCH (22:55)
--- NOTE | 2020-01-29 23:42 | NUR ---
NURSE NOTES: Informed pt. that she will be started on IV Solu Medrol and pt. states she used to take it. Educated pt. about the indications of the medication and it's side effects, encouraged to verbalize adverse reactions. Pt. verbalized understanding.
[2020-01-30] VITALS: BP 116/80
[2020-01-30] MEDS: oxyCODONE 5mg IR tab ORAL PRN ×4 (03:19→23:05)
[2020-01-30 04:00] VITALS: BP 121/75
--- NOTE | 2020-01-30 07:27 | General Progress Note ---
Assessment/Plan Problem List: (1) Constipation ICD Codes: K59.00 - Constipation, unspecified SNOMED: 26160315 (2) S/P appendectomy ICD Codes: Z90.49 - Acquired absence of other specified parts of digestive tract SNOMED: 88626129, 169548819 (3) ETOH abuse ICD Codes: F10.10 - Alcohol abuse, uncomplicated SNOMED: 08033894 (4) Gastritis ICD Codes: K29.70 - Gastritis, unspecified, without bleeding SNOMED: 5188197 (5) Opiate use ICD Codes: F11.90 - Opioid use, unspecified, uncomplicated SNOMED: 348436062 (6) Abdominal pain ICD Codes: R10.9 - Unspecified abdominal pain SNOMED: 69807503 (7) Back pain ICD Codes: M54.9 - Dorsalgia, unspecified SNOMED: 315619554 Qualifiers: Qualified Codes: M54.5 - Low back pain Status: stable Assessment/Plan: bowel regimen add linzess abd x ray reviewed bentyl prn will fu Subjective ROS Limited/Unobtainable: No Allergies: Coded Allergies: IBUPROFEN (Verified Allergy, Mild, 08/25/18) Objective Last 24 Hour Vital Signs Date Time Temp Pulse Resp B/P (MAP) Pulse Ox O2 Delivery O2 Flow Rate FiO2 01/30/20 04:00 98.4 104 21 121/75 (90) 96 01/30/20 00:00 96.5 98 19 116/80 (92) 95 01/29/20 23:45 96.9 01/29/20 21:00 Room Air 01/29/20 20:00 97.9 99 18 120/83 (95) 100 01/29/20 16:00 97.3 95 18 136/90 (105) 98 01/29/20 12:00 97.2 93 18 135/90 (105) 95 01/29/20 09:00 Room Air 01/29/20 08:30 88 134/82 01/29/20 08:00 97.5 88 18 134/82 (99) 96 Intake and Output 01/29/20 01/30/20 19:00 07:00 Intake Total 480 ml 1875 ml Balance 480 ml 1875 ml Intake Oral 480 ml 1600 ml IV Total 275 ml # Voids 3 4 Height (Feet): 5 Height (Inches): 2.00 Weight (Pounds): 255 General Appearance: alert EENT: normal ENT inspection Neck: normal alignment Cardiovascular: normal rate Respiratory/Chest: decreased breath sounds Abdomen: soft, hypoactive bowel sounds Extremities: non-tender Miles Ortega MD Jan 30, 2020 07:27
--- NOTE | 2020-01-30 07:29 | NUR ---
HAND-OFF: Report given to Danilo MARTINEZ. Addendum: 01/30/20 at 0730 by ALBERTO OTERO RN RN HAND-OFF: Report given to Richie MARTINEZ.
--- NOTE | 2020-01-30 07:30 | NUR ---
NURSE NOTES: Received pt lying in hospital bed. AAO x 4, able to make needs known, on RA in no apparent distress but with c/o itchiness asking for PRN Benadryl. Pt is continent to bowel and bladder with BSC present. LBM on 01/25/20, had MOM PRN yesterday. Pt has pIV to R forearm 22g saline lock with no s/s of infection or infiltration. Pt is pending imaging for MRI of brain, C-spine, T-Spine, and B hips today. Will continue POC and administer PRN medication per pt's request.
[2020-01-30 08:00] VITALS: BP 146/86
[2020-01-30] MEDS: DiphenhydrAMINE 25mg Tab ORAL PRN ×2 (08:28→23:54)
[2020-01-30] MEDS: Enoxaparin 40mg Inj SUBQ SCH (08:37)
[2020-01-30] MEDS: DULoxetine 30mg cap ORAL SCH ×2 (08:38→18:30)
[2020-01-30] MEDS: hydroCHLOROthiazide 12.5mg TAB ORAL SCH (08:39)
[2020-01-30] MEDS: Docusate 100mg cap ORAL SCH ×2 (08:39→20:18)
--- NOTE | 2020-01-30 08:40 | NUR ---
NURSE NOTES: Pt left unit for MRI in stable condition. Pt refused medications for bowel regimen this AM requesting to take it after procedure instead.
[2020-01-30] MEDS: BuPROPion 75mg Tab ORAL SCH ×2 (08:44→20:17)
--- NOTE | 2020-01-30 08:45 | NUR ---
RD ASSESSMENT & RECOMMENDATIONS SEE CARE ACTIVITY FOR COMPLETE ASSESSMENT DAILY ESTIMATED NEEDS: Needs based on Obese, cardiac 64kg abw 25-30 kcals/kg 7880-4746 total kcals 1-1.2 g protein/kg 64-77 g total protein Fluid per MD, on HCTZ NUTRITION DIAGNOSIS: Obese etiology unknown as evidenced by BMI >40, pt is 238% of [place] Body Weight. (CURRENT DIET: Regular diet) PO DIET RECOMMENDATIONS-> SOFT / Regular diet; Rec 5 small meals for improved tolerance ADDITIONAL RECOMMENDATIONS: 1) Obtain a calibrated bed scale wt Standing weight preferred if patient is able 2) Monitor for bm 3) rec accuchecks while on solumedrol
--- NOTE | 2020-01-30 11:30 | NUR ---
NURSE NOTES: Received pt back from MRI. Pt states she did well but pain was only relieved to 7/10 during procedure. VS taken T 97.9 P 123 R 20 BP 128/76 97% on RA. Will continue to monitor. Will resume bowel medication regimen as ordered. Will administer PRN pain meds as ordered.
--- NOTE | 2020-01-30 11:48 | NUR ---
MRI BRAIN, CERVICAL, THORACIC AND ABILIO HIPS COMPLETED
[2020-01-30 12:00] VITALS: BP 128/76
[2020-01-30] MEDS: HYDROcodone/Acetamin 5/325 tab ORAL PRN ×2 (12:30→20:17)
--- NOTE | 2020-01-30 14:00 | Diagnostic Imaging Report ---
Indication: Reason For Exam: WEAK Technique: Sagittal T1 FLAIR PROPELLER, sagittal T2 PROPELLER, sagittal STIR axial T2 PROPELLER, axial 3-D COSMIC ASPIR axial T1 fat-saturated images pre-and postcontrast, post contrast sagittal and axial T1 FSE images of the cervical spine Comparison: No comparison MRI. Reference made to a plain radiograph dated 02/25/2017 Findings: There is considerable image degradation due to motion artifact. This is most notable on the postcontrast images. Susceptibility artifact is seen at C5 and C6. Suspect that this indicates a presence of fusion hardware. There is slightly increased T2 signal at the inferior aspect of C5 as well as equivocal slight enhancement. The remaining vertebral marrow signal is unremarkable except for some Modic type II degenerative changes of C2, C3, and C4. There is loss of the normal cervical lordosis. Otherwise normal bony alignment. Intrinsic cord signal is normal. No definite evidence of cord enhancement, although evaluation for such is limited given the amount of motion artifact on the postcontrast images. At C2-3, there is mild narrowing of the left neural foramen. No significant disc bulge or protrusion or spinal stenosis At C3-4, there is mild narrowing of the left neural foramen. No significant disc bulge or protrusion or spinal stenosis. At C4-5, there is mild right and moderate left neural foraminal narrowing. No significant disc bulge or protrusion or spinal stenosis. At C5-6, there is central posterior disc protrusion. This results in moderate narrowing of the spinal canal, minimum AP diameter 8 mm. There is mild narrowing of the left neural foramen. At C6-7, there is mild generalized circumferential annular bulge as well as more focal right paracentral disc protrusion. This does not appear to simply compromise the spinal canal. The neural foramina are preserved. At C7-T1, no significant disc bulge or protrusion, spinal stenosis, or neural foraminal stenosis The included extraspinal soft tissues are unremarkable. Impression: No acute process. Degenerative changes, as detailed above on a level by level basis Postsurgical changes, as described No evidence of intrinsic cord pathology or cord enhancement
--- NOTE | 2020-01-30 14:04 | Diagnostic Imaging Report ---
EXAM: MRI MRI HIP LEFT NO CONTRAST HISTORY: History multiple sclerosis. Patient complains of muscle spasm and pain in left hip affecting her gait. COMPARISON: No prior studies available for comparison. TECHNIQUE: MR scanning of the left hip includes axial T1 and STIR, coronal T1 and STIR as well as small yuldm-my-yyoj sagittal and coronal proton density sequences with fat suppression. FINDINGS: Alignment of the left hip is anatomic. Bony structures appear intact. There is no fracture, marrow edema, bony lesion or erosion. Surrounding musculature is unremarkable. There is mild superficial soft tissue edema noted lateral aspect of both hips and in the posterior gluteal regions. Intrapelvic contents remarkable for uterine fibroids noted. The ovaries are normal in size with multiple small follicles. IMPRESSION: NO ACUTE BONY OR SOFT TISSUE ABNORMALITY OF THE LEFT HIP. MILD SPONTANEOUS SOFT TISSUE EDEMA NOTED AROUND BOTH HIPS AND IN THE POSTERIOR GLUTEAL REGION.
--- NOTE | 2020-01-30 14:08 | Diagnostic Imaging Report ---
EXAM: MRI MRI HIP RIGHT NO CONTRAST HISTORY: History multiple sclerosis. Patient complains of muscle spasm and pain in right hip affecting her gait. COMPARISON: No prior studies available for comparison. TECHNIQUE: MR scanning of the right hip includes axial T1 and STIR, coronal T1 and STIR as well as small qtxmw-np-gjdd sagittal and coronal proton density sequences with fat suppression. The sagittal proton density sequences slightly degraded by motion. FINDINGS: Alignment of the right hip is anatomic. Bony structures appear intact. There is no fracture, marrow edema, bony lesion or erosion. There is a small amount of joint fluid likely physiologic. Surrounding musculature is unremarkable. There is mild superficial soft tissue edema noted lateral aspect of both hips and in the posterior gluteal regions. Intrapelvic contents remarkable for uterine fibroids noted. The ovaries are normal in size with multiple small follicles. IMPRESSION: NO ACUTE BONY OR SOFT TISSUE ABNORMALITY OF THE RIGHT HIP. MILD SPONTANEOUS SOFT TISSUE EDEMA NOTED AROUND BOTH HIPS AND IN THE POSTERIOR GLUTEAL REGION.
--- NOTE | 2020-01-30 14:15 | NUR ---
CASE MANAGEMENT:REVIEW SI;ABDOMINAL PAIN. GASTRITIS. BACK PAIN. 96.5 123 21 146/86 95% ON RA IS;LINZESS PO SOLU-MEDROL IV BENTYL PO LOVENOX SUBQ BACLOFEN PO GABAPENTIN PO MED SURG STATUS DCP;FROM HOME
--- NOTE | 2020-01-30 14:16 | Diagnostic Imaging Report ---
Indication: Reason For Exam: WEAK Technique: Sagittal T1 FLAIR PROPELLER, sagittal T2 PROPELLER, sagittal STIR, axial T2 PROPELLER, axial T1; axial T1 and sagittal fat-saturated images pre-and postcontrast Comparison: none. Reference made to plain radiograph dated 02/25/2017 Findings: Exam is limited, as there is significant imaging rotation due to motion artifact. Per technologist, patient had difficulty holding still. Bony alignment is normal. Vertebral marrow signal is normal. Intrinsic cord signal is grossly normal, although the lower thoracic cord is poorly visualized due to the motion. At T5-6, there is mild posterior disc protrusion. There may be left lateral subarticular disc protrusion compromising the lateral recess seen on the axial T2 images although suspect that this is more likely due to artifact. The neural foramina are preserved At T6-7, there is mild broad-based posterior disc protrusion which results in mild to moderate narrowing of the spinal canal. This is exaggerated by short pedicles. The neural foramina are preserved. At T7-8, there is broad-based posterior disc protrusion/osteophyte complex as well as suggestion of some left paracentral posterior disc protrusion. This results in moderate narrowing of the spinal canal and may compromise left lateral recess. The neural foramina are preserved. At T8-9, there is broad-based posterior disc protrusion with a high intensity zone. This in combination with short pedicles results in moderate narrowing of the spinal canal. The neural foramina are preserved. At T9-10, there is suggestion of right paracentral posterior disc protrusion compromising the right lateral recess. This is confirmed on the sagittal images so is likely real. At T10-11 and T11-12, no significant disc bulge or protrusion, spinal stenosis, or neural foraminal stenosis. However, short pedicles do result in general congenital narrowing of the spinal canal. At the upper thoracic levels, no significant disc bulge or protrusion, spinal stenosis, or neural foraminal stenosis. No unusual contrast enhancement is demonstrated. The neural foramina are preserved. The included extra spinal soft tissues are unremarkable. Impression: Very limited exam, as described, due to motion artifact Multilevel degenerative changes of the mid to lower thoracic spinal canal, as described, with multilevel spinal stenosis as detailed on a level by level basis above. The most likely be significant is T9-T10 where there is right paracentral posterior disc protrusion compromising the right lateral recess. No definite evidence of significant intrinsic cord pathology or contrast enhancing lesion
--- NOTE | 2020-01-30 14:24 | Diagnostic Imaging Report ---
Indication: Reason For Exam: WEAK Technique: sagittal T1 fast spin echo, axial T1 and T2 FLAIR PROPELLER, axial T2 FS PROPELLER, T2* GRE, axial diffusion weighted images, post contrast axial and coronal T1 FLAIR PROPELLER images. ADC and exponential ADC maps generated Comparison: No comparison MRIs. Reference made to brain CT dated 03/04/2015 Findings: Motion artifact degrades a few sequences. No abnormal areas of restricted diffusion to suggest acute infarction. No acute hemorrhage or edema. No mass effect nor midline shift. No abnormal contrast enhancement. Normal size ventricles and extra axial CSF spaces. Visualized orbits and sinuses are unremarkable. The vascular flow voids are preserved. Impression: Negative
[2020-01-30 16:00] VITALS: BP 144/71
--- NOTE | 2020-01-30 16:36 | NUR ---
*-* INSURANCE *-* UPDATED AVAILABLE CLINICALS AND REVIEWS HAVE BEEN FAXED TO: [employer] F: [phone] REF# [id number]
--- NOTE | 2020-01-30 16:50 | NUR ---
NURSE NOTES: Pt has HR has been ranging between 118-128 today. MD notified. Received new orders. Will carry out.
--- NOTE | 2020-01-30 16:58 | General Progress Note ---
Assessment/Plan Problem List: (1) Back pain ICD Codes: M54.9 - Dorsalgia, unspecified SNOMED: 184106132 Qualifiers: Qualified Codes: M54.5 - Low back pain (2) Leg weakness ICD Codes: R29.898 - Other symptoms and signs involving the musculoskeletal system SNOMED: 087183501 Qualifiers: Qualified Codes: R29.898 - Other symptoms and signs involving the musculoskeletal system Status: stable Assessment/Plan: Ms. Rdoriguez is a 34 year old female with hx of PTSD, depression, MS (diagnosed 2018), chronic abdominal spasms/pain, bilateral leg weakness, hip tightness (R > L), here with worsening weakness, and abdominal spasms #Hx MS #Suspected MS flare #Acute on chronic LLE weakness and urinary incontinence, r/o transverse myelitis #Congenital epidural lipomatosis with narrowed spinal canal Per patient, dx was in 05/2019, at [facility], s/p 3 rounds of steroids treatment. Presenting sx's include visual change, urianry incontinence, leg weakness. Leg weakness never got better, however. -Neurology (Sandra) consulted. appreciate recs. -MRI lumbar spine with known stenosis. -s/p MRI b/l hip, brain, C/T spine today -> all negative. -s/p solumedrol x 1 day, 2 more days. -PT #Constipation #Abdominal spasms, acute on chronic -BM regimen. -GI consulted. appreciate recs. -linzess and stool softeneres ordered per GI. Hasn't had BM after it tthough. #HTN -Cont Norvasc -Cont HCTZ #Depression #PTSD -cont wellbutryn -cont duloxetine. time spent on encounter, 39 mins, 20 minutes spent on counseling and coordination of care. Time of note doesn't reflect time of encounter. Subjective Date patient seen: Jan 30, 2020 ROS Limited/Unobtainable: No Constitutional: Denies: no symptoms, chills, diaphoresis, fever, malaise, weakness, other HEENT: Denies: no symptoms, eye pain, blurred vision, tearing, double vision, ear pain, ear discharge, nose pain, nose congestion, throat pain, throat swelling, mouth pain, mouth swelling, other Cardiovascular: Denies: no symptoms, chest pain, edema, irregular heart rate, lightheadedness, palpitations, syncope, other Respiratory: Denies: no symptoms, cough, orthopnea, shortness of breath, SOB with excertion, SOB at rest, sputum, stridor, wheezing, other Gastrointestinal/Abdominal: Reports: no symptoms, abdomen distended, abdominal pain, black stools, tarry stools, blood in stool, constipated, diarrhea, difficulty swallowing, nausea, poor appetite, poor fluid intake, rectal bleeding , vomiting, other Genitourinary: Denies: no symptoms, burning, discharge, frequency, flank pain, hematuria, incontinence, pain, urgency, other Neurologic/Psychiatric: Denies: no symptoms, anxiety, depressed, emotional problems, headache, numbness, paresthesia, pre-existing deficit, seizure, tingling, tremors, weakness, other Endocrine: Denies: no symptoms, excessive sweating, flushing, intolerance to cold, intolerance to heat, increased hunger, increased thirst, increased urine, unexplained weight gain, unexplained weight loss, other Hematologic/Lymphatic: Denies: no symptoms, anemia, easy bleeding, easy bruising, other Allergies: Coded Allergies: IBUPROFEN (Verified Allergy, Mild, 08/25/18) Subjective returned from MRI. Says right leg weakness slightly better after solumedrol. continues to have abdominal spasms/pain, unchanged. otherwise in good mood. Objective Last 24 Hour Vital Signs Date Time Temp Pulse Resp B/P (MAP) Pulse Ox O2 Delivery O2 Flow Rate FiO2 01/30/20 16:00 97.9 122 20 144/71 (95) 95 01/30/20 13:00 97.9 01/30/20 12:00 97.9 123 20 128/76 (93) 97 01/30/20 09:00 Room Air 01/30/20 08:39 118 146/86 01/30/20 08:00 97.7 118 20 146/86 (106) 100 01/30/20 04:00 98.4 104 21 121/75 (90) 96 01/30/20 00:00 96.5 98 19 116/80 (92) 95 01/29/20 21:00 Room Air 01/29/20 20:00 97.9 99 18 120/83 (95) 100 Intake and Output 01/29/20 01/30/20 19:00 07:00 Intake Total 480 ml 1875 ml Balance 480 ml 1875 ml Intake Oral 480 ml 1600 ml IV Total 275 ml # Voids 3 4 Height (Feet): 5 Height (Inches): 2.00 Weight (Pounds): 255 General Appearance: no apparent distress, alert EENT: PERRL/EOMI Neck: supple Cardiovascular: normal rate, regular rhythm Respiratory/Chest: lungs clear, normal breath sounds Abdomen: non tender, soft Neurologic: alert, oriented x 3 Neri Zuniga MD Jan 30, 2020 16:58
--- NOTE | 2020-01-30 18:20 | Neurology Progress Note ---
Interim History Interim History Interim History Ms. Crystal Rodriguez is a 34-year-old, right-handed, black lady, who does have a past history of hypertension, cervical and lumbosacral spine disease for which she has had anterior cervical discectomy and fusion done in the past, and multiple sclerosis for which she is on no disease modifying agent. Approximately 1 week ago her legs started to get weaker, sensations in the lower extremities got worse, and she started becoming incontinent. As a result of these problems she presented to the [facility] emergency room and has since been admitted. She feels much better today. She did get her first dose of steroids last night in the legs have improved significantly with regards to the strength. She is been able to walk again. Her bladder control is also better. She denies any new neurological symptoms. Review of Systems Neuro Review of Systems Benign. Objective Physical Exam Last Vital Signs Date Time Temp Pulse Resp B/P (MAP) Pulse Ox O2 Delivery O2 Flow Rate FiO2 01/30/20 16:00 97.9 122 20 144/71 (95) 95 01/30/20 09:00 Room Air Neurologic Exam Objective PHYSICAL EXAMINATION: GENERAL: She is a well-developed, well-nourished, obese, black lady, lying in bed, in no acute distress. HEAD: Normocephalic and atraumatic. NECK: No neck rigidity was observed. EENT: Benign. SPINE: Cervical, thoracic and lumbosacral spine revealed no point tenderness. Range of motion was decreased in the entire spine. NEUROLOGIC EXAMINATION: MENTAL STATUS EXAMINATION: The patient was alert and awake. The patient was oriented to person, place and time. The patient was able to recall 3/3 words immediately, but could only remember 2/3 after 1 minute and after 3 minutes. The patient was able to remember Presidents Trump through [place] only. The patient's mathematical skills were good. The patient's visuospatial function was preserved. SPEECH: No dysarthria was noted. LANGUAGE: No aphasia was noted. CRANIAL NERVE EXAMINATION: II: The visual antonio were intact to confrontation testing. III, IV, : External ocular movements were full and pupils 3 mm in diameter equal, round, regular and reactive to light. V: The facial sensations were normal, and the temporales, masseters and pterygoids functioned normally. VII: The facial expressions were normal and no facial asymmetry was seen. VIII: The patient was able to hear well bilaterally and had no nystagmus. IX: The palate moved symmetrically on phonation. X: There was no hoarseness of voice. XI: The sternocleidomastoids and trapezii functioned normally. XII: The tongue was in the midline without any fasciculations or atrophy. MOTOR SYSTEM: The tone was normal in both upper extremities but spastic in both lower extremities. Examination of muscle mass revealed no focal wasting. Examination of power revealed G 5/5 power except for G 5-/5 in the iliopsoas muscles bilaterally. SENSORY EXAMINATION: She had altered sensations to pinprick and light touch with a T8 level on the right side and T10 level on the left side. Position sense was diminished in the toes bilaterally. COORDINATION: Salfgy-xb-scic was performed well bilaterally. She was unable to perform zzcu-qc-vzks testing. REFLEXES: 2+ and bilaterally symmetric at the biceps, triceps, and brachioradialis. 3+ at both knees. 0 at both ankles. The plantar responses were flexor bilaterally. STANCE: She stood up with support on one side. GAIT: She walks with support on one side with a mildly paraparetic gait. ABNORMAL MOVEMENTS: None Impression/Recommendations Diagnostic Impression DIAGNOSTIC IMPRESSION: 1. Ms. Crystal Rodriguez is a 34-year-old, right-handed, black lady, who does have a past history of hypertension, cervical and lumbosacral spine disease for which she has had anterior cervical discectomy and fusion done in the past, and multiple sclerosis for which she is on no disease modifying agent. 2. Approximately 1 week ago her legs started to get weaker, sensations in the lower extremities got worse, and she started becoming incontinent. As a result of these problems she presented to the [facility] emergency room and has since been admitted. 3. She feels much better today. She did get her first dose of steroids last night in the legs have improved significantly with regards to the strength. She is been able to walk again. Her bladder control is also better. She denies any new neurological symptoms. 4. On neurological examination, at this time, she does have mild problems with recent and remote memory. 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 She continues to have a T10 level on the left side and T8 level on the right side. The knee jerks are still pathologically brisk but the plantar responses are flexor bilaterally. She is able to stand and walk with support on one side today. 5. The MRI scan of the brain performed on 01/30/2020 was benign for any intracranial pathology. 6. The MRI scan of the cervical spine performed on 01/30/2020 revealed multilevel degenerative disease and sequelae of old surgery but no cord compression. In addition no intrinsic cord problem was discovered. 7. The MRI scan of the thoracic spine performed on 01/30/2020 again revealed multilevel degenerative disease most marked at T9-T10 where there is right paracentral posterior disc protrusion compromising the right lateral recess. No intrinsic cord pathology was seen. 8. MRI scan of the lumbosacral spine performed on 01/27/2020 revealed moderate spinal stenosis at the L4-5 level due to a congenitally small canal and in addition epidural lipomatosis. 9. The patient's history and neurological examination are consistent with dysfunction involving the thoracic spinal cord. It is unclear as to what exactly is causing this problem however there has been a marked improvement with steroids. 10. The MRI scans of the brain and entire spinal axis reveal no white matter lesions and thus the diagnosis of multiple sclerosis is suspect. Recommendations RECOMMENDATIONS: 1. Continue present management 2. Would try to obtain imaging studies and lumbar puncture results from [place]. 3. Finish 3-day course of Solu-Medrol 1 g intravenously daily. 4. Mobilize with the help of Physical Therapy Pj Flores M.D., M.S.P.H. Neurologist & Clinical Neurophysiologist Pj Flores MD Jan 30, 2020 18:20
--- NOTE | 2020-01-30 19:45 | NUR ---
NURSE NOTES: Received pt. in sitting position in bed, awake, alert and oriented; denies any pain at this time. Call light within reach.
[2020-01-30 20:00] VITALS: BP 120/55
--- NOTE | 2020-01-30 20:11 | NUR ---
HAND-OFF: Report given to MICHELLE Whelan and MICHELLE Sy. POC endorsed.
--- NOTE | 2020-01-30 22:57 | Consultation ---
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 States she has hx of multiple sclerosis, unclear what medications are, has have on and off weakness for last year. Pt prev followed at [facility] and would received steroids with some improvement in weakness. States for past week she has only been able to walk a few steps before her legs gave out. Yesterday she fall and landing on R leg and buttock, denies LOC of head injury. Pt also complaining of intermittent urinary incontinence for past year. In the ED MRI Lumbar spine was done, no cord compression noted. Denies chills, sore throat, palpitations, nausea, vomiting, dysuria, shortness of breath, rashes, visual changes, dizziness, headache. Cardiology consulted to assist with blood pressure management Allergies: Coded Allergies: IBUPROFEN (Verified Allergy, Mild, 08/25/18) Medication History Scheduled Amlodipine Besylate* (Amlodipine Besylate*), 20 MG ORAL DAILY, (Reported) Amoxicillin* (Amoxil*), 500 MG ORAL THREE TIMES A DAY Baclofen* (Baclofen*), 40 MG ORAL TWICE A DAY, (Reported) Bupropion Sr* (Wellbutrin Sr*), 75 MG ORAL TWICE A DAY, (Reported) Cyclobenzaprine Hcl* (Flexeril*), 10 MG ORAL THREE TIMES A DAY Duloxetine Hcl* (Cymbalta*), 30 MG ORAL TWICE A DAY, (Reported) Gabapentin* (Gabapentin*), 300 MG ORAL TWICE A DAY, (Reported) Hydrochlorothiazide* (Hydrochlorothiazide*), 12.5 MG ORAL DAILY, (Reported) Ibuprofen (Motrin), 600 MG ORAL THREE TIMES A DAY Loratadine/Pseudoephedrine (Claritin-D 12 Hour Tablet), 1 TAB ORAL EVERY 12 HOURS Methocarbamol* (Robaxin*), 500 MG PO TID Naproxen* (Naprosyn*), 375 MG ORAL TID Naproxen* (Naproxen*), 500 MG ORAL TWICE A DAY No Known Medications* (NKM - No Known Medications*), 0 ., (Reported) Ranitidine Hcl* (Zantac*), 150 MG ORAL TWICE A DAY Scheduled PRN Acetaminophen With Codeine (T#3) (Tylenol #3 Tab*), 1 TAB ORAL Q8H PRN for For Pain Alprazolam* (Xanax*), 3 MG ORAL TID PRN for PRN ANXIETY/AGITATION, (Reported) Codeine/Promethazine Hcl* (Promethazine-Codeine Syrup*), 5 ML ORAL Q6H PRN for For Cough Hydrocodone Bit/Acetaminophen 5-325* ([place] 5-325*), 1 TAB ORAL Q6H PRN for For Pain Ondansetron Odt* (Zofran Odt*), 4 MG ORAL Q6H PRN for Nausea & Vomiting Discontinued Medications Acetaminophen With Codeine (T#3) (Tylenol #3 Tab*), 1 TAB ORAL Q8H PRN for For Pain Discontinued Reason: MD discontinued med Hydrocodone/Acetaminophen 5-325* (Hydrocodone/Acetaminophen 5-325*), 1 TAB ORAL Q6H PRN for For Pain Discontinued Reason: MD discontinued med Ondansetron Odt* (Zofran Odt*), 4 MG ORAL Q6H PRN for Nausea & Vomiting Discontinued Reason: MD discontinued med Ondansetron Odt* (Zofran Odt*), 4 MG BC EVERY 6 HOURS PRN for Nausea & Vomiting Discontinued Reason: MD discontinued med Ranitidine Hcl* (Zantac*), 150 MG ORAL TWICE A DAY Discontinued Reason: MD discontinued med Ranitidine Hcl* (Zantac*), 150 MG ORAL TWICE A DAY Discontinued Reason: MD discontinued med Patient History Healthcare decision maker Resuscitation status Advanced Directive on File Review of Systems Constitutional: Reports: no symptoms Eye: Reports: no symptoms ENT: Reports: no symptoms Respiratory: Reports: no symptoms Cardiovascular: Reports: no symptoms Gastrointestinal: Reports: no symptoms Genitourinary: Reports: no symptoms Musculoskeletal: Reports: back pain, joint pain, muscle pain Skin: Reports: no symptoms Psychiatric: Reports: no symptoms Neurological: Reports: no symptoms Endocrine: Reports: no symptoms Hematologic/Lymphatic: Reports: no symptoms Physical Exam General Appearance: no apparent distress, alert Lines, tubes and drains: peripheral HEENT: normocephalic, anicteric, mucous membranes moist Neck: non-tender, normal alignment, normal inspection Respiratory/Chest: chest wall non-tender, normal breath sounds, no accessory muscle use Breasts: no masses Cardiovascular/Chest: normal peripheral pulses, normal rate, regular rhythm Abdomen: normal bowel sounds, non tender, no organomegaly, no mass Extremities: normal range of motion, non-tender, normal inspection, no calf tenderness, normal capillary refill, non-pitting Skin Exam: normal pigmentation, warm/dry, cyanotic Neurologic: facilities clerk II-XII grossly normal, no motor/sensory deficits Last 24 Hour Vital Signs Date Time Temp Pulse Resp B/P (MAP) Pulse Ox O2 Delivery O2 Flow Rate FiO2 01/30/20 21:00 Room Air 01/30/20 20:47 96.6 01/30/20 20:00 96.6 117 26 120/55 (76) 96 01/30/20 16:00 97.9 122 20 144/71 (95) 95 01/30/20 12:00 97.9 123 20 128/76 (93) 97 01/30/20 09:00 Room Air 01/30/20 08:39 118 146/86 01/30/20 08:00 97.7 118 20 146/86 (106) 100 01/30/20 04:00 98.4 104 21 121/75 (90) 96 01/30/20 00:00 96.5 98 19 116/80 (92) 95 Intake and Output 01/29/20 01/30/20 19:00 07:00 Intake Total 480 ml 1875 ml Balance 480 ml 1875 ml Intake Oral 480 ml 1600 ml IV Total 275 ml # Voids 3 4 Height (Feet): 5 Height (Inches): 2.00 Weight (Pounds): 255 Medications Current Medications Medications (Trade) Dose Ordered Sig/Lulu Route PRN Reason Start Time Stop Time Status Last Admin Dose Admin Acetaminophen (Tylenol) 650 mg Q4H PRN ORAL Mild Pain (Pain Scale 1-3) 01/27/20 23:15 02/26/20 23:14 Acetaminophen (Tylenol) 650 mg Q4H PRN ORAL Temp >100.5 01/27/20 23:15 02/26/20 23:14 Acetaminophen/ Hydrocodone Bitart ([place] 5/325) 1 tab Q6H PRN ORAL For Pain 01/28/20 09:00 02/04/20 08:59 01/30/20 20:17 Amlodipine Besylate (Norvasc) 20 mg DAILY ORAL 01/28/20 09:00 02/27/20 08:59 01/30/20 08:39 Baclofen (Lioresal) 40 mg TWICE A DAY ORAL 01/28/20 09:00 02/27/20 08:59 01/30/20 19:22 Bisacodyl (Dulcolax) 10 mg DAILYPRN PRN RECTAL Constipation 01/27/20 23:15 04/26/20 23:14 Bupropion HCl (Wellbutrin) 75 mg Q12HR ORAL 01/28/20 10:00 02/27/20 09:59 01/30/20 20:17 Dextrose (Dextrose 50%) 25 ml Q30M PRN IV Hypoglycemia 01/27/20 23:15 04/26/20 23:14 Dextrose (Dextrose 50%) 50 ml Q30M PRN IV Hypoglycemia 01/27/20 23:15 04/26/20 23:14 Dicyclomine HCl (Bentyl) 20 mg QIDPRN PRN ORAL Abdominal cramps 01/29/20 14:15 02/28/20 14:14 Diphenhydramine HCl (Benadryl) 25 mg Q6H PRN ORAL Itching 01/29/20 06:15 02/28/20 06:14 01/30/20 08:28 Docusate Sodium (Colace) 100 mg EVERY 12 HOURS ORAL 01/28/20 09:00 02/27/20 08:59 01/30/20 20:18 Duloxetine HCl (Cymbalta) 30 mg TWICE A DAY ORAL 01/28/20 09:00 04/27/20 08:59 01/30/20 18:30 Enoxaparin Sodium (Lovenox) 40 mg DAILY SUBQ 01/28/20 09:00 04/27/20 08:59 01/30/20 08:37 Gabapentin (Neurontin) 300 mg TWICE A DAY ORAL 01/28/20 09:00 02/27/20 08:59 01/30/20 18:30 Gadobutrol (Gadavist) 7.5 mmol NOW PRN IV Radiology Procedure 01/28/20 12:30 02/01/20 12:29 Gadobutrol (Gadavist) 7.5 mmol NOW PRN IV Radiology Procedure 01/29/20 12:30 02/02/20 12:28 Hydrochlorothiazide (Hydrodiuril) 12.5 mg DAILY ORAL 01/28/20 09:00 02/27/20 08:59 01/30/20 08:39 Linaclotide (Linzess) 290 mcg BEFORE BREAKFAST ORAL 01/30/20 07:30 04/29/20 07:29 01/30/20 12:30 Magnesium Hydroxide (Mom) 30 ml HSPRN PRN ORAL Constipation 01/27/20 23:15 02/26/20 23:14 Methylprednisolone Sodium Succinate 1000 mg/Sodium Chloride 275 ml @ 275 mls/hr Q24H IVPB 01/29/20 23:00 01/31/20 23:59 01/29/20 22:55 Ondansetron HCl (Zofran ODT) 4 mg Q6H PRN ORAL Nausea & Vomiting 01/29/20 06:15 02/28/20 06:14 Oxycodone HCl (Roxicodone) 10 mg Q4H PRN ORAL Breakthrough Pain 01/27/20 23:15 02/03/20 23:14 01/30/20 15:43 Polyethylene Glycol (Miralax) 17 gm DAILYPRN PRN ORAL Constipation 01/27/20 23:15 02/26/20 23:14 Sodium Chloride 1,000 ml @ 75 mls/hr [id number] IV 01/30/20 17:30 02/29/20 17:29 01/30/20 18:30 Assessment/Plan Status: stable Assessment/Plan: Assessment/Plan Problem List: (1) Back pain (2) Leg weakness (3) Hypertension (4) PTSD (5) Multipld sclerosis Hypertension -currently controlled -If BP control continues to be a problem recommend d/c Wellbutrin -Monitor QTC on medications and replete electrolytes to prevent arrhythmias -Continue Norvasc/HCTZ -DASH diet -Mobilize Amanuel Danielle MD Jan 30, 2020 22:57
[2020-01-30] MEDS: methylPREDNISolone Sod Succ 1,000 MG in NS 275 ML IVPB SCH (23:00)
[2020-01-31] VITALS (7 sets, daily range): BP systolic 126–149; BP diastolic 55–88
[2020-01-31 06:32] LABS: HEMATOCRIT 33.5 % (37.0-47.0); HEMOGLOBIN 11.1 G/DL (12.0-16.0); MEAN CORPUSCULAR VOLUME 81 FL (80-99); PLATELET COUNT 501 K/UL (150-450); RED BLOOD COUNT 4.13 M/UL (4.20-5.40); RED CELL DISTRIBUTION WIDTH 13.8 % (11.6-14.8); WHITE BLOOD COUNT 17.4 K/UL (4.8-10.8)
[2020-01-31 06:52] LABS: ALANINE AMINOTRANSFERASE 19 U/L (12-78); ALBUMIN 3.9 G/DL (3.4-5.0); ALKALINE PHOSPHATASE 64 U/L (46-116); ANION GAP 13 mmol/L (5-15); ASPARTATE AMINO TRANSFERASE 31 U/L (15-37); BILIRUBIN,TOTAL 0.2 MG/DL (0.2-1.0); BLOOD UREA NITROGEN 26 mg/dL (7-18); CALCIUM 9.5 MG/DL (8.5-10.1); CARBON DIOXIDE 25 MMOL/L (21-32); CHLORIDE 100 MMOL/L (98-107); CREATININE 1.1 MG/DL (0.55-1.30); POTASSIUM 4.1 MMOL/L (3.5-5.1); SODIUM 138 MMOL/L (136-145)
--- NOTE | 2020-01-31 07:34 | NUR ---
NURSE NOTES: Report given to Darrell MARTINEZ.
--- NOTE | 2020-01-31 07:55 | NUR ---
NURSE NOTES: pt in the bed awake and eating breakfast. No SOB noted. Denies any pain. RFA IV line is inplace, fluid running as ordered; tolerated well. No acute distress noted at this time. pt is calm and quiet. call light is within reach, will follow plan of care.
[2020-01-31] MEDS: oxyCODONE 5mg IR tab ORAL PRN ×3 (09:33→21:44)
[2020-01-31] MEDS: BuPROPion 75mg Tab ORAL SCH ×2 (09:33→21:13)
[2020-01-31] MEDS: DULoxetine 30mg cap ORAL SCH ×2 (09:34→17:17)
[2020-01-31] MEDS: hydroCHLOROthiazide 12.5mg TAB ORAL SCH (09:34)
[2020-01-31] MEDS: Docusate 100mg cap ORAL SCH ×2 (09:35→21:13)
[2020-01-31] MEDS: Enoxaparin 40mg Inj SUBQ SCH (09:36)
--- NOTE | 2020-01-31 10:24 | General Progress Note ---
Assessment/Plan Problem List: (1) Constipation ICD Codes: K59.00 - Constipation, unspecified SNOMED: 22632470 (2) S/P appendectomy ICD Codes: Z90.49 - Acquired absence of other specified parts of digestive tract SNOMED: 87943636, 235207957 (3) ETOH abuse ICD Codes: F10.10 - Alcohol abuse, uncomplicated SNOMED: 44312634 (4) Gastritis ICD Codes: K29.70 - Gastritis, unspecified, without bleeding SNOMED: 8619414 (5) Opiate use ICD Codes: F11.90 - Opioid use, unspecified, uncomplicated SNOMED: 350575914 (6) Abdominal pain ICD Codes: R10.9 - Unspecified abdominal pain SNOMED: 25469209 (7) Back pain ICD Codes: M54.9 - Dorsalgia, unspecified SNOMED: 526300581 Qualifiers: Qualified Codes: M54.5 - Low back pain Status: stable Assessment/Plan: bowel regimen linzess 290 added yesterday had BM today abd x ray reviewed bentyl prn will fu Subjective ROS Limited/Unobtainable: Yes Allergies: Coded Allergies: IBUPROFEN (Verified Allergy, Mild, 08/25/18) Objective Last 24 Hour Vital Signs Date Time Temp Pulse Resp B/P (MAP) Pulse Ox O2 Delivery O2 Flow Rate FiO2 01/31/20 09:35 118 136/88 01/31/20 08:00 98.1 118 19 136/88 (104) 95 01/31/20 04:00 97.3 126 26 127/71 (89) 01/31/20 00:00 97.0 119 26 149/80 (103) 01/30/20 21:00 Room Air 01/30/20 20:47 96.6 01/30/20 20:00 96.6 117 26 120/55 (76) 96 01/30/20 16:00 97.9 122 20 144/71 (95) 95 01/30/20 12:00 97.9 123 20 128/76 (93) 97 Intake and Output 01/30/20 01/31/20 19:00 07:00 Intake Total 840 ml 4062.5 ml Balance 840 ml 4062.5 ml Intake Oral 840 ml 3000 ml IV Total 1062.5 ml # Voids 3 1 Laboratory Tests 01/31/20 05:50: White Blood Count 17.4H, Red Blood Count 4.13L, Hemoglobin 11.1L, Hematocrit 33.5L, Mean Corpuscular Volume 81, Mean Corpuscular Hemoglobin 27.0, Mean Corpuscular Hemoglobin Concent 33.2, Red Cell Distribution Width 13.8, Platelet Count 501H, Mean Platelet Volume 4.7L, Neutrophils (%) (Auto) , Lymphocytes (%) (Auto) , Monocytes (%) (Auto) , Eosinophils (%) (Auto) , Basophils (%) (Auto) , Neutrophils % (Manual) [Pending], Lymphocytes % (Manual) [Pending], Platelet Estimate [Pending], Platelet Morphology [Pending], Sodium Level 138, Potassium Level 4.1, Chloride Level 100, Carbon Dioxide Level 25, Anion Gap 13, Blood Urea Nitrogen 26H, Creatinine 1.1, Estimat Glomerular Filtration Rate > 60, Glucose Level 213H, Calcium Level 9.5, Total Bilirubin 0.2, Aspartate Amino Transf (AST/SGOT) 31, Alanine Aminotransferase (ALT/SGPT) 19, Alkaline Phosphatase 64, Total Protein 7.7, Albumin 3.9, Globulin 3.8, Albumin/Globulin Ratio 1.0 Height (Feet): 5 Height (Inches): 2.00 Weight (Pounds): 252 General Appearance: no apparent distress EENT: normal ENT inspection Neck: supple Cardiovascular: normal rate Respiratory/Chest: decreased breath sounds Abdomen: normal bowel sounds, non tender, soft Extremities: non-tender Miles Ortega MD Jan 31, 2020 10:24
--- NOTE | 2020-01-31 11:50 | NUR ---
CASE MANAGEMENT:REVIEW SI;DORSALGIA. LLE WEAKNESS. MS FLARE. 97.0 126 26 149/80 95% ON RA WBC 17.4 BUN 26 BG 213 IS;IVF NS @ 75 ML/HR LINZESS PO SOLU-MEDROL IV QD BENTYL PO PRN LOVENOX SUBQ QD BACLOFEN PO BID MED SURG STATUS DCP;PATIENT IS FROM HOME
--- NOTE | 2020-01-31 14:46 | General Progress Note ---
Assessment/Plan Problem List: (1) Back pain ICD Codes: M54.9 - Dorsalgia, unspecified SNOMED: 566041092 Qualifiers: Qualified Codes: M54.5 - Low back pain (2) Leg weakness ICD Codes: R29.898 - Other symptoms and signs involving the musculoskeletal system SNOMED: 179378498 Qualifiers: Qualified Codes: R29.898 - Other symptoms and signs involving the musculoskeletal system Status: stable Assessment/Plan: Ms. Rodriguez is a 34 year old female with hx of PTSD, depression, MS (diagnosed 2018), chronic abdominal spasms/pain, bilateral leg weakness, hip tightness (R > L), here with worsening weakness, and abdominal spasms #Hx MS #Suspected MS flare #Acute on chronic LLE weakness and urinary incontinence, r/o transverse myelitis #Congenital epidural lipomatosis with narrowed spinal canal Per patient, dx was in 05/2019, at [place], s/p 3 rounds of steroids treatment. Presenting sx's include visual change, urianry incontinence, leg weakness. Leg weakness never got better, however. -Neurology (Sandra) consulted. appreciate recs. -MRI lumbar spine with known stenosis. -s/p MRI b/l hip, brain, C/T spine today -> all negative. -s/p solumedrol x 3 days , 1 more dose tonight. -potentially home tmrw. will order H&H on d/c. -PT #Steroid induced leukocytosis #Steroid induced insomnia -ambien 5 mg qhs ordered -continue to monitor. #Constipation #Abdominal spasms, acute on chronic -BM regimen. -GI consulted. appreciate recs. -linzess and stool softeneres ordered per GI. Hasn't had BM after it tthough. -d/w GI, no need for scope. #HTN -Cont Norvasc -Cont HCTZ #Depression #PTSD -cont wellbutryn -cont duloxetine. time spent on encounter, 38 mins, 20 minutes spent on counseling and coordination of care, d/w RN, consultants. Time of note doesn't reflect time of encounter. Subjective Date patient seen: Jan 31, 2020 ROS Limited/Unobtainable: No Constitutional: Denies: no symptoms, chills, diaphoresis, fever, malaise, weakness, other HEENT: Denies: no symptoms, eye pain, blurred vision, tearing, double vision, ear pain, ear discharge, nose pain, nose congestion, throat pain, throat swelling, mouth pain, mouth swelling, other Cardiovascular: Denies: no symptoms, chest pain, edema, irregular heart rate, lightheadedness, palpitations, syncope, other Respiratory: Denies: no symptoms, cough, orthopnea, shortness of breath, SOB with excertion, SOB at rest, sputum, stridor, wheezing, other Gastrointestinal/Abdominal: Reports: no symptoms, abdomen distended, abdominal pain, black stools, tarry stools, blood in stool, constipated, diarrhea, difficulty swallowing, nausea, poor appetite, poor fluid intake, rectal bleeding , vomiting, other Genitourinary: Denies: no symptoms, burning, discharge, frequency, flank pain, hematuria, incontinence, pain, urgency, other Neurologic/Psychiatric: Denies: no symptoms, anxiety, depressed, emotional problems, headache, numbness, paresthesia, pre-existing deficit, seizure, tingling, tremors, weakness, other Endocrine: Denies: no symptoms, excessive sweating, flushing, intolerance to cold, intolerance to heat, increased hunger, increased thirst, increased urine, unexplained weight gain, unexplained weight loss, other Hematologic/Lymphatic: Denies: no symptoms, anemia, easy bleeding, easy bruising, other Allergies: Coded Allergies: IBUPROFEN (Verified Allergy, Mild, 08/25/18) Subjective seen ambulating in the room. says her leg weakness improved after 2 days of steroids. had good BM's after medications but still having abd pain spasm episodes. otherwise in good spirits. Objective Last 24 Hour Vital Signs Date Time Temp Pulse Resp B/P (MAP) Pulse Ox O2 Delivery O2 Flow Rate FiO2 01/31/20 12:00 97.7 119 18 131/76 (94) 94 01/31/20 09:35 118 136/88 01/31/20 09:00 Room Air 01/31/20 08:00 98.1 118 19 136/88 (104) 95 01/31/20 04:00 97.3 126 26 127/71 (89) 01/31/20 00:00 97.0 119 26 149/80 (103) 01/30/20 21:00 Room Air 01/30/20 20:47 96.6 01/30/20 20:00 96.6 117 26 120/55 (76) 96 01/30/20 16:00 97.9 122 20 144/71 (95) 95 Intake and Output 01/30/20 01/31/20 19:00 07:00 Intake Total 840 ml 4062.5 ml Balance 840 ml 4062.5 ml Intake Oral 840 ml 3000 ml IV Total 1062.5 ml # Voids 3 1 Laboratory Tests 01/31/20 05:50: White Blood Count 17.4H, Red Blood Count 4.13L, Hemoglobin 11.1L, Hematocrit 33.5L, Mean Corpuscular Volume 81, Mean Corpuscular Hemoglobin 27.0, Mean Corpuscular Hemoglobin Concent 33.2, Red Cell Distribution Width 13.8, Platelet Count 501H, Mean Platelet Volume 4.7L, Neutrophils (%) (Auto) , Lymphocytes (%) (Auto) , Monocytes (%) (Auto) , Eosinophils (%) (Auto) , Basophils (%) (Auto) , Differential Total Cells Counted 100, Neutrophils % (Manual) 86H, Lymphocytes % (Manual) 12L, Monocytes % (Manual) 2, Eosinophils % (Manual) 0, Basophils % ( Manual) 0, Band Neutrophils 0, Platelet Estimate Adequate, Platelet Morphology Normal, Hypochromasia 1+, Anisocytosis 1+, Sodium Level 138, Potassium Level 4.1 , Chloride Level 100, Carbon Dioxide Level 25, Anion Gap 13, Blood Urea Nitrogen 26H, Creatinine 1.1, Estimat Glomerular Filtration Rate > 60, Glucose Level 213H, Calcium Level 9.5, Total Bilirubin 0.2, Aspartate Amino Transf (AST/ SGOT) 31, Alanine Aminotransferase (ALT/SGPT) 19, Alkaline Phosphatase 64, Total Protein 7.7, Albumin 3.9, Globulin 3.8, Albumin/Globulin Ratio 1.0 Height (Feet): 5 Height (Inches): 2.00 Weight (Pounds): 252 General Appearance: no apparent distress, alert EENT: PERRL/EOMI Neck: supple Cardiovascular: normal rate, regular rhythm Respiratory/Chest: lungs clear, normal breath sounds Abdomen: non tender, soft Neurologic: alert, oriented x 3 Neri Zuniga MD Jan 31, 2020 14:45
--- NOTE | 2020-01-31 15:26 | Cardiology Progress Note ---
Assessment/Plan Status: stable Assessment/Plan Assessment/Plan Problem List: (1) Back pain (2) Leg weakness (3) Hypertension (4) PTSD (5) Multipld sclerosis Hypertension -currently controlled -If BP control continues to be a problem recommend d/c Wellbutrin -Monitor QTC on medications and replete electrolytes to prevent arrhythmias -Continue Norvasc/HCTZ -DASH diet -Mobilize Subjective Cardiovascular: Reports: no symptoms Respiratory: Reports: no symptoms Gastrointestinal/Abdominal: Reports: no symptoms Genitourinary: Reports: no symptoms Subjective No acute events, no chest pain, BP controlled,no arrhythmias, ambulated, tolerating PO Objective Last 24 Hour Vital Signs Date Time Temp Pulse Resp B/P (MAP) Pulse Ox O2 Delivery O2 Flow Rate FiO2 01/31/20 12:00 97.7 119 18 131/76 (94) 94 01/31/20 09:35 118 136/88 01/31/20 09:00 Room Air 01/31/20 08:00 98.1 118 19 136/88 (104) 95 01/31/20 04:00 97.3 126 26 127/71 (89) 01/31/20 00:00 97.0 119 26 149/80 (103) 01/30/20 21:00 Room Air 01/30/20 20:47 96.6 01/30/20 20:00 96.6 117 26 120/55 (76) 96 01/30/20 16:00 97.9 122 20 144/71 (95) 95 General Appearance: no apparent distress, alert EENT: PERRL/EOMI, normal ENT inspection, TMs normal, pharynx normal Neck: non-tender, normal alignment, supple, normal inspection Rhythm: NSR Cardiovascular: normal peripheral pulses, normal rate, regular rhythm Respiratory/Chest: chest wall non-tender, lungs clear Abdomen: normal bowel sounds, non tender, soft, no organomegaly Extremities: normal range of motion, non-tender, normal inspection, no calf tenderness, no swelling 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, no motor/sensory deficits Intake and Output 01/30/20 01/31/20 19:00 07:00 Intake Total 840 ml 4062.5 ml Balance 840 ml 4062.5 ml Intake Oral 840 ml 3000 ml IV Total 1062.5 ml # Voids 3 1 Laboratory Tests Test 01/31/20 05:50 White Blood Count 17.4 K/UL (4.8-10.8) H Red Blood Count 4.13 M/UL (4.20-5.40) L Hemoglobin 11.1 G/DL (12.0-16.0) L Hematocrit 33.5 % (37.0-47.0) L Mean Corpuscular Volume 81 FL (80-99) Mean Corpuscular Hemoglobin 27.0 PG (27.0-31.0) Mean Corpuscular Hemoglobin Concent 33.2 G/DL (32.0-36.0) Red Cell Distribution Width 13.8 % (11.6-14.8) Platelet Count 501 K/UL (150-450) H Mean Platelet Volume 4.7 FL (6.5-10.1) L Neutrophils (%) (Auto) % (45.0-75.0) Lymphocytes (%) (Auto) % (20.0-45.0) Monocytes (%) (Auto) % (1.0-10.0) Eosinophils (%) (Auto) % (0.0-3.0) Basophils (%) (Auto) % (0.0-2.0) Differential Total Cells Counted 100 Neutrophils % (Manual) 86 % (45-75) H Lymphocytes % (Manual) 12 % (20-45) L Monocytes % (Manual) 2 % (1-10) Eosinophils % (Manual) 0 % (0-3) Basophils % (Manual) 0 % (0-2) Band Neutrophils 0 % (0-8) Platelet Estimate Adequate Platelet Morphology Normal Hypochromasia 1+ Anisocytosis 1+ Sodium Level 138 MMOL/L (136-145) Potassium Level 4.1 MMOL/L (3.5-5.1) Chloride Level 100 MMOL/L (98-107) Carbon Dioxide Level 25 MMOL/L (21-32) Anion Gap 13 mmol/L (5-15) Blood Urea Nitrogen 26 mg/dL (7-18) H Creatinine 1.1 MG/DL (0.55-1.30) Estimat Glomerular Filtration Rate > 60 mL/min (>60) Glucose Level 213 MG/DL (74-106) H Calcium Level 9.5 MG/DL (8.5-10.1) Total Bilirubin 0.2 MG/DL (0.2-1.0) Aspartate Amino Transf (AST/SGOT) 31 U/L (15-37) Alanine Aminotransferase (ALT/SGPT) 19 U/L (12-78) Alkaline Phosphatase 64 U/L (46-116) Total Protein 7.7 G/DL (6.4-8.2) Albumin 3.9 G/DL (3.4-5.0) Globulin 3.8 g/dL Albumin/Globulin Ratio 1.0 (1.0-2.7) Amanuel Danielle MD Jan 31, 2020 15:26
[2020-01-31] MEDS: HYDROcodone/Acetamin 5/325 tab ORAL PRN (15:40)
--- NOTE | 2020-01-31 17:16 | Neurology Progress Note ---
Interim History Interim History ROS Limited/Unobtainable: No Interim History Ms. Crystal Rodriguez is a 34-year-old, right-handed, black lady, who does have a past history of hypertension, cervical and lumbosacral spine disease for which she has had anterior cervical discectomy and fusion done in the past, and multiple sclerosis for which she is on no disease modifying agent. Approximately 1 week ago her legs started to get weaker, sensations in the lower extremities got worse, and she started becoming incontinent. As a result of these problems she presented to the [facility] emergency room and has since been admitted. She continues to feel significantly better today. She feels significantly stronger since she got her second dose of steroids. She did walk today and felt much more steady on her feet. Her bladder control is quite good now but she still has urinary urgency. She denies any new neurological symptoms. Review of Systems Neuro Review of Systems Benign. Objective Physical Exam Last Vital Signs Date Time Temp Pulse Resp B/P (MAP) Pulse Ox O2 Delivery O2 Flow Rate FiO2 01/31/20 12:00 97.7 119 18 131/76 (94) 94 01/31/20 09:00 Room Air Laboratory Tests Test 01/31/20 05:50 White Blood Count 17.4 K/UL (4.8-10.8) H Red Blood Count 4.13 M/UL (4.20-5.40) L Hemoglobin 11.1 G/DL (12.0-16.0) L Hematocrit 33.5 % (37.0-47.0) L Mean Corpuscular Volume 81 FL (80-99) Mean Corpuscular Hemoglobin 27.0 PG (27.0-31.0) Mean Corpuscular Hemoglobin Concent 33.2 G/DL (32.0-36.0) Red Cell Distribution Width 13.8 % (11.6-14.8) Platelet Count 501 K/UL (150-450) H Mean Platelet Volume 4.7 FL (6.5-10.1) L Neutrophils (%) (Auto) % (45.0-75.0) Lymphocytes (%) (Auto) % (20.0-45.0) Monocytes (%) (Auto) % (1.0-10.0) Eosinophils (%) (Auto) % (0.0-3.0) Basophils (%) (Auto) % (0.0-2.0) Differential Total Cells Counted 100 Neutrophils % (Manual) 86 % (45-75) H Lymphocytes % (Manual) 12 % (20-45) L Monocytes % (Manual) 2 % (1-10) Eosinophils % (Manual) 0 % (0-3) Basophils % (Manual) 0 % (0-2) Band Neutrophils 0 % (0-8) Platelet Estimate Adequate Platelet Morphology Normal Hypochromasia 1+ Anisocytosis 1+ Sodium Level 138 MMOL/L (136-145) Potassium Level 4.1 MMOL/L (3.5-5.1) Chloride Level 100 MMOL/L (98-107) Carbon Dioxide Level 25 MMOL/L (21-32) Anion Gap 13 mmol/L (5-15) Blood Urea Nitrogen 26 mg/dL (7-18) H Creatinine 1.1 MG/DL (0.55-1.30) Estimat Glomerular Filtration Rate > 60 mL/min (>60) Glucose Level 213 MG/DL (74-106) H Calcium Level 9.5 MG/DL (8.5-10.1) Total Bilirubin 0.2 MG/DL (0.2-1.0) Aspartate Amino Transf (AST/SGOT) 31 U/L (15-37) Alanine Aminotransferase (ALT/SGPT) 19 U/L (12-78) Alkaline Phosphatase 64 U/L (46-116) Total Protein 7.7 G/DL (6.4-8.2) Albumin 3.9 G/DL (3.4-5.0) Globulin 3.8 g/dL Albumin/Globulin Ratio 1.0 (1.0-2.7) Neurologic Exam Objective PHYSICAL EXAMINATION: GENERAL: She is a well-developed, well-nourished, obese, black lady, lying in bed, in no acute distress. HEAD: Normocephalic and atraumatic. NECK: No neck rigidity was observed. EENT: Benign. SPINE: Cervical, thoracic and lumbosacral spine revealed no point tenderness. Range of motion was decreased in the entire spine. NEUROLOGIC EXAMINATION: MENTAL STATUS EXAMINATION: The patient was alert and awake. The patient was oriented to person, place and time. The patient was able to recall 3/3 words immediately, after 1 minute and after 3 minutes. The patient was able to remember Presidents Trump through [place] only. The patient's mathematical skills were good. The patient's visuospatial function was preserved. SPEECH: No dysarthria was noted. LANGUAGE: No aphasia was noted. CRANIAL NERVE EXAMINATION: II: The visual antonio were intact to confrontation testing. III, IV, : External ocular movements were full and pupils 3 mm in diameter equal, round, regular and reactive to light. V: The facial sensations were normal, and the temporales, masseters and pterygoids functioned normally. VII: The facial expressions were normal and no facial asymmetry was seen. VIII: The patient was able to hear well bilaterally and had no nystagmus. IX: The palate moved symmetrically on phonation. X: There was no hoarseness of voice. XI: The sternocleidomastoids and trapezii functioned normally. XII: The tongue was in the midline without any fasciculations or atrophy. MOTOR SYSTEM: The tone was normal in both upper extremities but spastic in both lower extremities. Examination of muscle mass revealed no focal wasting. Examination of power revealed G 5/5 power except for G 5/5 in the iliopsoas muscles bilaterally. SENSORY EXAMINATION: She had altered sensations to pinprick and light touch with a T8 level on the right side and T10 level on the left side. Position sense was diminished in the toes bilaterally. COORDINATION: [id number] was performed well bilaterally. She was unable to perform [id number] testing. REFLEXES: 2+ and bilaterally symmetric at the biceps, triceps, and brachioradialis. 3+ at both knees. 0 at both ankles. The plantar responses were flexor bilaterally. STANCE: She stood up independently. GAIT: She walks relatively well independently. ABNORMAL MOVEMENTS: None Impression/Recommendations Diagnostic Impression DIAGNOSTIC IMPRESSION: 1. Ms. Crystal Rodriguez is a 34-year-old, right-handed, black lady, who does have a past history of hypertension, cervical and lumbosacral spine disease for which she has had anterior cervical discectomy and fusion done in the past, and multiple sclerosis for which she is on no disease modifying agent. 2. Approximately 1 week ago her legs started to get weaker, sensations in the lower extremities got worse, and she started becoming incontinent. As a result of these problems she presented to the [facility] emergency room and has since been admitted. 3. She continues to feel significantly better today. She feels significantly stronger since she got her second dose of steroids. She did walk today and felt much more steady on her feet. Her bladder control is quite good now but she still has urinary urgency. She denies any new neurological symptoms. 4. On neurological examination, at this time, she does have mild problems with memory. 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 She continues to have a T10 level on the left side and T8 level on the right side. The knee jerks are still pathologically brisk but the plantar responses are flexor bilaterally. She is able to stand and walk independently. 5. The MRI scan of the brain performed on 01/30/2020 was benign for any intracranial pathology. 6. The MRI scan of the cervical spine performed on 01/30/2020 revealed multilevel degenerative disease and sequelae of old surgery but no cord compression. In addition no intrinsic cord problem was discovered. 7. The MRI scan of the thoracic spine performed on 01/30/2020 again revealed multilevel degenerative disease most marked at T9-T10 where there is right paracentral posterior disc protrusion compromising the right lateral recess. No intrinsic cord pathology was seen. 8. MRI scan of the lumbosacral spine performed on 01/27/2020 revealed moderate spinal stenosis at the L4-5 level due to a congenitally small canal and in addition epidural lipomatosis. 9. The patient's history and neurological examination are consistent with dysfunction involving the thoracic spinal cord. It is unclear as to what exactly is causing this problem however there has been a marked improvement with steroids. 10. The MRI scans of the brain and entire spinal axis reveal no white matter lesions and thus the diagnosis of multiple sclerosis is suspect. Recommendations RECOMMENDATIONS: 1. Continue present management 2. Would try to obtain imaging studies and lumbar puncture results from [facility]. 3. Finish 3-day course of Solu-Medrol 1 g intravenously daily. 4. Mobilize with the help of Physical Therapy Pj Flores M.D., M.S.P.H. Neurologist & Clinical Neurophysiologist Pj Flores MD Jan 31, 2020 17:16
--- NOTE | 2020-01-31 19:20 | NUR ---
Received report from am nurse. Received pt sitting up in bed, Aox4, c/o back pain 04/01, pain medication not yet due. IV R FA patent and intact. No sign of distress noted. Will continue to monitor.
--- NOTE | 2020-01-31 19:39 | NUR ---
HAND-OFF: Report given to
--- NOTE | 2020-01-31 20:30 | NUR ---
Called [facility] to give report to MICHELLE Vu. Nurse not available. MARIANNA Farris aware.
[2020-01-31] MEDS ORDERED: Zolpidem 5mg tab ORAL SCH (21:00)
--- NOTE | 2020-01-31 22:10 | NUR ---
NURSE NOTES: Patient was transferred at 2[address] wheelchair. Patient in stable condition all belongings brought with patient and verified. Patient denies any pain as of the moment. Patient is alert and oriented x4, VSS 98.3 T, HR 108, 19, 130/88. 96% ON RA. Denies any distress. In stable condition otherwise.
--- NOTE | 2020-01-31 22:10 | NUR ---
Transferred pt via wheelchair accompanied by RN. All belongings taken. Report given to MICHELLE Ross. Pt in stable condition.
[2020-01-31] MEDS: methylPREDNISolone Sod Succ 1,000 MG in NS 275 ML IVPB SCH (22:18)
[2020-02-01] VITALS: BP 112/71
[2020-02-01 04:00] VITALS: BP 127/89
[2020-02-01] MEDS: oxyCODONE 5mg IR tab ORAL PRN ×2 (04:02→09:27)
[2020-02-01] MEDS: HYDROcodone/Acetamin 5/325 tab ORAL PRN (06:45)
--- NOTE | 2020-02-01 07:36 | NUR ---
HAND-OFF: Report given to .MICHELLE Wang Patient in stable condition.
--- NOTE | 2020-02-01 07:43 | NUR ---
NURSE NOTES: Handoff received from Cody MARTINEZ. Patient is awake and alert, no signs of distress noted. Left wrist IV is patent and asymptomatic, running IVF as ordered. Patient was educated to use call light if she needed assistance, patient verbally agreed. Bed is low and locked, side rails up x2, call light within reach.
[2020-02-01 08:00] VITALS: BP 144/87
[2020-02-01] MEDS: Enoxaparin 40mg Inj SUBQ SCH (09:20)
[2020-02-01 09:24] VITALS: BP 144/87
[2020-02-01] MEDS: DULoxetine 30mg cap ORAL SCH (09:24)
[2020-02-01] MEDS: BuPROPion 75mg Tab ORAL SCH (09:24)
[2020-02-01] MEDS: hydroCHLOROthiazide 12.5mg TAB ORAL SCH (09:24)
[2020-02-01] MEDS: Docusate 100mg cap ORAL SCH (09:25)
--- NOTE | 2020-02-01 11:09 | Cardiology Progress Note ---
Assessment/Plan Status: stable Assessment/Plan Assessment/Plan Problem List: (1) Back pain (2) Leg weakness (3) Hypertension (4) PTSD (5) Multipld sclerosis Hypertension -currently controlled -If BP control continues to be a problem recommend d/c Wellbutrin -Monitor QTC on medications and replete electrolytes to prevent arrhythmias -Continue Norvasc/HCTZ -DASH diet -Mobilize Subjective Cardiovascular: Reports: no symptoms Respiratory: Reports: no symptoms Gastrointestinal/Abdominal: Reports: no symptoms Genitourinary: Reports: no symptoms Subjective No acute events, no chest pain, BP controlled,no arrhythmias, ambulated, tolerating PO, feels better with the iV steroids Objective Last 24 Hour Vital Signs Date Time Temp Pulse Resp B/P (MAP) Pulse Ox O2 Delivery O2 Flow Rate FiO2 02/01/20 09:24 107 144/87 02/01/20 08:00 97.3 107 20 144/87 (106) 98 02/01/20 07:15 97.5 02/01/20 04:00 97.5 106 21 127/89 (102) 98 02/01/20 00:00 97.9 114 20 112/71 (85) 96 01/31/20 21:00 Room Air 01/31/20 20:00 97.9 108 20 140/55 (83) 96 01/31/20 18:00 97.5 114 20 126/64 (84) 98 01/31/20 16:00 97.5 114 20 126/64 (84) 98 01/31/20 12:00 97.7 119 18 131/76 (94) 94 General Appearance: no apparent distress, alert EENT: PERRL/EOMI, normal ENT inspection, TMs normal, pharynx normal Neck: non-tender, normal alignment, supple, normal inspection, no JVD Rhythm: NSR Cardiovascular: normal peripheral pulses, normal rate, regular rhythm Respiratory/Chest: chest wall non-tender, lungs clear, normal breath sounds, no respiratory distress Abdomen: normal bowel sounds, non tender, soft Extremities: normal range of motion, non-tender, normal inspection, no calf tenderness, no swelling 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
--- NOTE | 2020-02-01 12:15 | General Progress Note ---
Assessment/Plan Problem List: (1) Constipation ICD Codes: K59.00 - Constipation, unspecified SNOMED: 20614154 (2) S/P appendectomy ICD Codes: Z90.49 - Acquired absence of other specified parts of digestive tract SNOMED: 79101927, 860246914 (3) ETOH abuse ICD Codes: F10.10 - Alcohol abuse, uncomplicated SNOMED: 74262315 (4) Gastritis ICD Codes: K29.70 - Gastritis, unspecified, without bleeding SNOMED: 9356420 (5) Opiate use ICD Codes: F11.90 - Opioid use, unspecified, uncomplicated SNOMED: 449677302 (6) Abdominal pain ICD Codes: R10.9 - Unspecified abdominal pain SNOMED: 61111347 (7) Back pain ICD Codes: M54.9 - Dorsalgia, unspecified SNOMED: 824345461 Qualifiers: Qualified Codes: M54.5 - Low back pain Status: stable Assessment/Plan: bowel regimen linzess 290 had BM today abd x ray reviewed bentyl prn will fu Subjective ROS Limited/Unobtainable: Yes Allergies: Coded Allergies: IBUPROFEN (Verified Allergy, Mild, 08/25/18) Objective Last 24 Hour Vital Signs Date Time Temp Pulse Resp B/P (MAP) Pulse Ox O2 Delivery O2 Flow Rate FiO2 02/01/20 09:24 107 144/87 02/01/20 08:00 97.3 107 20 144/87 (106) 98 02/01/20 07:15 97.5 02/01/20 04:00 97.5 106 21 127/89 (102) 98 02/01/20 00:00 97.9 114 20 112/71 (85) 96 01/31/20 21:00 Room Air 01/31/20 20:00 97.9 108 20 140/55 (83) 96 01/31/20 18:00 97.5 114 20 126/64 (84) 98 01/31/20 16:00 97.5 114 20 126/64 (84) 98 Intake and Output 01/31/20 02/01/20 19:00 07:00 Intake Total 1500 ml 300 ml Output Total 900 ml Balance 600 ml 300 ml Intake Oral 1500 ml 300 ml Output Urine Total 900 ml # Voids 3 7 Height (Feet): 5 Height (Inches): 2.00 Weight (Pounds): 252 General Appearance: no apparent distress EENT: normal ENT inspection Neck: supple Cardiovascular: normal rate Respiratory/Chest: lungs clear Abdomen: normal bowel sounds, non tender, soft Extremities: non-tender Miles Ortega MD Feb 01, 2020 12:15
--- NOTE | 2020-02-01 12:51 | Discharge Summary ---
Discharge Summary Hospital Course Date of Admission Jan 27, 2020 at 22:00 Date of Discharge 02/01/2020 Admitting Diagnosis bilateral leg weakness HPI Crystal Rodriguez is a 34 year old female who was admitted on Jan 27, 2020 at 22:00 with bilateral leg weakness, acute on chronic, as well as abdominal pain, acute on chronic. concern for MS flare Consultations neurology Hospital Course Ms. Rodriguez is a 34 year old female with hx of PTSD, depression, MS (diagnosed 2018), chronic abdominal spasms/pain, bilateral leg weakness, hip tightness (R > L), here with worsening weakness, and abdominal spasms. was given solumedrol x 3days per neurology with symptom imprvoement. Was seen by GI for abdominal pain , bowel regimen given with good BM's with slight improvement, but pain did not completely resolve. per GI, endoscopy not indicated and recommended outpatient f /u. #Hx MS #Suspected MS flare #Acute on chronic LLE weakness and urinary incontinence, r/o transverse myelitis #Congenital epidural lipomatosis with narrowed spinal canal Per patient, dx was in 05/2019, at [place], s/p 3 rounds of steroids treatment. Presenting sx's include visual change, urianry incontinence, leg weakness. Leg weakness never got better, however. -Neurology (Sandra) consulted. appreciate recs. -MRI lumbar spine with known stenosis. -s/p MRI b/l hip, brain, C/T spine today -> all negative. -s/p solumedrol x 3 days. -d/c home today with . -PT #Steroid induced leukocytosis #Steroid induced insomnia -ambien 5 mg qhs ordered inhouse. -continue to monitor. #Constipation #Abdominal spasms, acute on chronic -BM regimen. -GI consulted. appreciate recs. -linzess and stool softeneres ordered per GI. Hasn't had BM after it tthough. -d/w GI, no need for scope. continue outpatient f/u. #HTN -Cont Norvasc -Cont HCTZ #Depression #PTSD -cont wellbutryn -cont duloxetine. time spent on encounter, 36 mins, 20 minutes spent on counseling and coordination of care, d/w RN, consultants, CM. Time of note doesn't reflect time of encounter. Discharge Condition Upon Discharge: stable Discharge Vital Signs Last Vital Signs Date Time Temp Pulse Resp B/P (MAP) Pulse Ox O2 Delivery O2 Flow Rate FiO2 02/01/20 09:24 107 144/87 02/01/20 08:00 97.3 20 98 01/31/20 21:00 Room Air Discharge Disposition Patient was discharged to home with H H Discharge Diagnoses: (1) Leg weakness (2) Abdominal pain (3) Constipation (4) Back pain Neri Zuniga MD Feb 01, 2020 12:51
--- NOTE | 2020-02-01 13:52 | NUR ---
discharge planning: patient referred to [facility] T: [phone] F: [phone] and Mary on license of [facility] T: [phone] bhavana moffett f/u Addendum: 02/01/20 at 1357 by MAISHA VACA LVN not accepting insurance
--- NOTE | 2020-02-01 14:08 | NUR ---
DISCHARGE PLANNING PATIENT REFERRED TO [facility] T: [phone] F: [phone] Addendum: 02/01/20 at 1513 by MAISHA VACA LVN NO NURSES AVAILABLE TO TAKE THIS PATIENT
--- NOTE | 2020-02-01 14:45 | NUR ---
NURSE NOTES: Patient was safely discharged from to home via private vehicle. Patient belongings were verified and belongings list was signed. Patient verbalized understanding of making a follow up appointment and all patient questions were answered. IV and ID wristband removed.
--- NOTE | 2020-02-01 15:13 | NUR ---
DISCHARGE PLANNING PATIENT REFERRED TO [facility] T: [phone] F: [phone] CM TO F/U Addendum: 02/01/20 at 1514 by MAISHA VACA LVN NOT ACCEPTED D/T INSURANCE
--- NOTE | 2020-02-02 11:57 | NUR ---
*-* INSURANCE *-* UPDATED AVAILABLE CLINICALS AND REVIEWS AND DISCHARGE SUMMARY HAVE BEEN FAXED TO: [employer] F: [phone] REF# [id number]
== END 2020-02-01 15:04 | disposition home or self-care (01) | DRG 43 ==
LOC: EMR 21:26 → 4E 22:00 → EDBEDREQ 22:55 → 3E 01-31 22:10
DX: G35 Multiple sclerosis (principal); M54.9 Dorsalgia, unspecified; Z88.6 Allergy status to analgesic agent; I10 Essential (primary) hypertension; R53.1 Weakness; E88.2 Lipomatosis, not elsewhere classified; R10.9 Unspecified abdominal pain; K59.00 Constipation, unspecified; T38.0X5A Adverse effect of glucocorticoids and synthetic analogues, initial encounter; D72.829 Elevated white blood cell count, unspecified; G47.00 Insomnia, unspecified; R25.2 Cramp and spasm; R29.898 Other symptoms and signs involving the musculoskeletal system; F32.9 Major depressive disorder, single episode, unspecified; F43.10 Post-traumatic stress disorder, unspecified; Z91.81 History of falling; R32 Unspecified urinary incontinence; F11.90 Opioid use, unspecified, uncomplicated; Z98.1 Arthrodesis status
CPT/HCPCS: 36415; 70553; 71045; 72148; 72156; 72157; 74018; 80053; 80307; 81003; 82550; 82962; 84443; 84703; 85007; 85025; 93005; 93306; 96374; 96375; 99285; A9585; G0480; J2765; J7030

== ENCOUNTER 2020-03-22 08:14 | Inpatient (IN) | payer MEDICAID ==
[~2020-03-22] VITALS: Ht 154.9 cm; Wt 90.3 kg
[~2020-03-22 08:14] MED LIST changes: +AMLODIPINE BESY10 MG ORAL; +BACLOFEN10 MG ORAL; +CYMBALTA30 MG ORAL; +GABAPENTIN400 MG ORAL; +HYDROCHLOROTH12.5 MG ORAL; +WELLBUTRIN SR100 MG ORAL; +XANAX2 MG ORAL
[2020-03-22] MEDS ORDERED: cefTRIAXone 1 GM in NS 55 ML IVPB ONE (09:15)
[2020-03-22] MEDS ORDERED: methylPREDNISolone Sod Succ 1,000 MG in NS 275 ML IVPB ONE (09:15)
--- NOTE | 2020-03-22 09:21 | Emergency Room Report ---
History of Present Illness General Chief Complaint: General Complaint Source: Patient Present Illness HPI 34-year-old -Israeli female with past medical history of MS (diagnosed at [place] in May 2019), PTSD, depression, presenting with complaint of "it feels like I am having an MS flare". She states that she is unable to ambulate and this feels similar to the previous RR MS episode that she was hospitalized for in January 2020. She denies trauma or recent falls, fever, midline back pain, IV drug use, bowel bladder incontinence. She does endorse dysuria and URI symptoms. She states 3 days ago she was in a grocery store and was exposed to possible COVID patients. Since that time she has developed a dry cough, myalgias, fatigue, and fever. Fever was 100.4 at home. She took Tylenol with some relief The patient's symptoms were gradual onset, severity was moderate, duration since 3 days. Quality: Weak Severity: Moderate Past medical history: Multiple sclerosis, PTSD, depression, obesity Past surgical history: Cervical spacer or cervical radiculopathy Smoking: Yes Alcohol use: Occasional Drug use: Denies Review of systems: CONST: + fevers + chills, No night sweats PULMONARY: No productive cough, No shortness of breath CARDIAC: No chest pain, No palpitations GI: No vomiting, No diarrhea , No melena_or_BRBPR : + dysuria, No hematuria, No discharge NEURO: No new_focal_weakness_or_numbness, No confusion, No vision changes 14 point Review of Systems is otherwise negative except per HPI Physical Exam: GENERAL: Awake_alert_ nontoxic, no acute distress Spo2 100% on RA -normal EYES: Extraocular muscles are intact. Conjunctivae clear. Lids without swelling ENT: External nose and ear normal_in_appearance. Oropharynx clear. Head_ atraumatic, Moist_oral_mucosa NECK: No JVD. No meningismus. No thyromegaly. Supple. Trachea midline RESP: Normal respiratory effort. Symmetric rise. No stridor. Clear_to_ auscultation_No_rales_No_wheezes CARDIAC: Tachycardic. Regular rhythm on_auscultation No_significant pedal edema. ABDOMEN: Soft. Nondistended. Nontender_No_rebound_or_guarding. MSK: Normal muscle tone, without rigidity. Extremities without asymmetric deformity or swelling. SKIN: Warm and dry. No visible cyanosis or pallor NEUROLOGIC: Alert, oriented x3. Motor_and_sensation_grossly_intact. No truncal ataxia. Gait_normal No saddle anesthesia Psych: Normal mood and affect, normal judgment and insight - COORDINATION OF CARE Case was discussed with: Patient , Patient's Physician I reviewed patient's medical records from hospitalization January 2020. MRI C/T/L spine were negative for lesions. Pt improved s/p solumedrol x 3 days per neurology. Any labs and imaging that were ordered were interpreted as part of the medical decision making: Medical Decision Making/Plan: DDx: includes COVID-19 / coronavirus infection, URI, bronchitis, viral syndrome , postnasal drip, versus less likely pneumonia, UTI, MS flare, rhabdo, dehydration The patient is nontoxic and well-appearing and has no significant shortness of breath or fever . The patient exhibits no evidence of respiratory distress. Neuro exam demonstrates global muscle weakness without focal findings. No saddle anesthesia. Patient is barely able to ambulate with walker. Likely MS flare. No evidence of ENT emergency, airway patent, tolerating oral liquids and solids. No stridor or difficulty breathing. Labs show no acute illness. COVID test is negative. Chest x-ray revealed no evidence of obvious consolidation of infiltrate. ED intervention included solumedrol 1g IV x 1 and rocephin. Will admit to med surg for MS flare. I spoke with Dr. Smith, and reviewed the patients presentation, workup, results, and treatment. They will admit the patient for further care and evaluation, and assume care of the patient at this time. Allergies: Coded Allergies: IBUPROFEN (Verified Allergy, Mild, 08/25/18) COVID-19 Screening Contact w/high risk pt: No Recent Travel to affected area: No Experienced COVID-19 symptoms?: Yes COVID-19 Testing performed [place] [place]ATOR: Yes - 11/05/2019 COVID-19 Screening: Negative COVID-19 COVID-19 Testing Source: nasal Patient History Last Menstrual Period: 02/25/2020 Nursing Documentation-[facility] Hx Hypertension: Yes Hx Pacemaker: No Hx Asthma: Yes Hx Diabetes: Yes Hx Dialysis: No Hx Neurological Problems: No Hx Cerebrovascular Accident: No Hx Seizures: No Physical Exam Vital Signs Date Time Temp Pulse Resp B/P (MAP) Pulse Ox O2 Delivery O2 Flow Rate FiO2 03/22/20 08:28 98.6 100 17 122/63 (82) 100 Room Air Sp02 EP Interpretation: reviewed, normal Medical Decision Making Diagnostic Impression: Primary Impression: Multiple sclerosis exacerbation Additional Impressions: Obesity Depression PTSD (post-traumatic stress disorder) Tobacco abuse EKG Diagnostic Results PA Scribe Text 12-lead EKG (interpreted by me) Time: 1030 Indication: Rhythm analysis Tracing visualized and Interpreted by me. Rhythm: Normal sinus rhythm Rate: 93 bpm QTc: 492 Morphology: No_significant_ST_elevations_or_depressions, No STEMI Impression: Normal_sinus_rhythm_without_significant_abnormality. Prolonged QT interval Reevaluation Time: 09:39 Last Vital Signs Date Time Temp Pulse Resp B/P (MAP) Pulse Ox O2 Delivery O2 Flow Rate FiO2 03/22/20 08:28 98.6 100 17 122/63 (82) 100 Room Air Status: improved Disposition: ADMITTED INPATIENT Admit Decision Time: 09:00 Condition: Stable Referrals: NON PHYSICIAN (PCP) Lisbet Reyes D.O. Mar 22, 2020 09:21
[2020-03-22] MEDS ORDERED: Calcium Gluconate 1gm/50ml 50 ML IVPB ONE (10:30)
[2020-03-22 10:47] LABS: ANION GAP 10 mmol/L (5-15); BASOPHILS % (AUTO) 1.3 % (0.0-2.0); BLOOD UREA NITROGEN 9 mg/dL (7-18); CALCIUM 9.1 MG/DL (8.5-10.1); CARBON DIOXIDE 25 MMOL/L (21-32); CHLORIDE 101 MMOL/L (98-107); EOSINOPHILS % (AUTO) 5.7 % (0.0-3.0); HEMATOCRIT 36.9 % (37.0-47.0); HEMOGLOBIN 11.1 G/DL (12.0-16.0); LYMPHOCYTES % (AUTO) 26.7 % (20.0-45.0); MEAN CORPUSCULAR VOLUME 88 FL (80-99); MONOCYTES % (AUTO) 5.8 % (1.0-10.0); NEUTROPHILS % (AUTO) 60.4 % (45.0-75.0); PLATELET COUNT 401 K/UL (150-450); POTASSIUM 4.2 MMOL/L (3.5-5.1); RED BLOOD COUNT 4.21 M/UL (4.20-5.40); RED CELL DISTRIBUTION WIDTH 16.9 % (11.6-14.8); SODIUM 136 MMOL/L (136-145); WHITE BLOOD COUNT 7.5 K/UL (4.8-10.8)
[2020-03-22 11:01] LABS: ALANINE AMINOTRANSFERASE 18 U/L (12-78); ALBUMIN/GLOBULIN RATIO 1.2 (1.0-2.7); ALKALINE PHOSPHATASE 72 U/L (46-116); ASPARTATE AMINO TRANSFERASE 24 U/L (15-37); BILIRUBIN,TOTAL 0.1 MG/DL (0.2-1.0); CKMB 2.6 NG/ML (0.0-3.6); CREATINE KINASE 252 U/L (26-308); PHOSPHORUS 3.4 MG/DL (2.5-4.9)
[2020-03-22] MEDS ORDERED: Morphine Sulfate 2mg/ml Inj(IV/IM USE ONLY) IVP ONE (11:15)
--- NOTE | 2020-03-22 12:07 | Diagnostic Imaging Report ---
Procedure: XRAY Chest 1v Reason for study: Reason For Exam: COUGH Comparison films: None. FINDINGS: Renogram is underpenetrated. Vascularity is normal. The lung antonio are clear bilaterally. Cardiac and mediastinal silhouette are within normal limits. CP angles are sharp. The bony thorax appear unremarkable. IMPRESSION: NO ACUTE CARDIOPULMONARY DISEASE.
[2020-03-22 12:33] VITALS: BP 132/79
[2020-03-22 13:02] LABS: APPEARANCE,URINE CLEAR; BILIRUBIN, URINE NEGATIVE (NEGATIVE); COLOR,URINE PALE YELLOW; GLUCOSE, URINE (UA) NEGATIVE (NEGATIVE); KETONES,URINE 1+ (NEGATIVE); LEUKOCYTE ESTERASE ,URINE NEGATIVE (NEGATIVE); NITRITE,URINE NEGATIVE (NEGATIVE); PH,URINE 8 (4.5-8.0); PROTEIN,URINE NEGATIVE (NEGATIVE); UROBILINOGEN,URINE NORMAL MG/DL (0.0-1.0)
[2020-03-22] MEDS ORDERED: AMBIEN10 M1 ORAL (14:47)
[2020-03-22 16:00] VITALS: BP 152/96
[2020-03-22] MEDS: Methocarbamol 500mg tab ORAL PRN (17:40)
[2020-03-22 20:00] VITALS: BP 159/97
[2020-03-22] MEDS ORDERED: Zolpidem 5mg tab ORAL PRN (20:00)
[2020-03-22] MEDS: HYDROcodone/Acetamin 5/325 tab ORAL PRN (20:55)
--- NOTE | 2020-03-22 23:17 | Initial Psychiatric Evaluation ---
Psychiatry Consultation Psychiatry Consultation Chief Complaint: General Complaint Allergies: Coded Allergies: IBUPROFEN (Verified Allergy, Mild, 08/25/18) Medication History Scheduled Alprazolam* (Xanax*), 2 MG ORAL DAILY, (Reported) Amlodipine Besylate* (Amlodipine Besylate*), 20 MG ORAL DAILY, (Reported) Bupropion Sr* (Wellbutrin Sr*), 75 MG ORAL TWICE A DAY, (Reported) Duloxetine Hcl* (Cymbalta*), 30 MG ORAL TWICE A DAY, (Reported) Gabapentin* (Gabapentin*), 300 MG ORAL TWICE A DAY, (Reported) Hydrochlorothiazide* (Hydrochlorothiazide*), 12.5 MG ORAL DAILY, (Reported) Scheduled PRN Hydrocodone Bit/Acetaminophen 5-325* ([place] 5-325*), 1 TAB ORAL Q6H PRN for For Pain Zolpidem Tartrate* (Ambien*), 10 MG ORAL HS PRN for INSOMNIA, (Reported) Discontinued Medications Acetaminophen With Codeine (T#3) (Tylenol #3 Tab*), 1 TAB ORAL Q8H PRN for For Pain Discontinued Reason: Pt stopped taking med Amoxicillin* (Amoxil*), 500 MG ORAL THREE TIMES A DAY Discontinued Reason: Pt stopped taking med Baclofen* (Baclofen*), 40 MG ORAL TWICE A DAY, (Reported) Discontinued Reason: Pt stopped taking med Codeine/Promethazine Hcl* (Promethazine-Codeine Syrup*), 5 ML ORAL Q6H PRN for For Cough Discontinued Reason: Pt stopped taking med Cyclobenzaprine Hcl* (Flexeril*), 10 MG ORAL THREE TIMES A DAY Discontinued Reason: Pt stopped taking med Ibuprofen (Motrin), 600 MG ORAL THREE TIMES A DAY Discontinued Reason: Pt stopped taking med Loratadine/Pseudoephedrine (Claritin-D 12 Hour Tablet), 1 TAB ORAL EVERY 12 HOURS Discontinued Reason: Pt stopped taking med Methocarbamol* (Robaxin*), 500 MG PO TID Discontinued Reason: Pt stopped taking med Naproxen* (Naprosyn*), 375 MG ORAL TID Discontinued Reason: Pt stopped taking med Naproxen* (Naproxen*), 500 MG ORAL TWICE A DAY Discontinued Reason: Pt stopped taking med No Known Medications* (NKM - No Known Medications*), 0 ., (Reported) Discontinued Reason: Pt stopped taking med Ondansetron Odt* (Zofran Odt*), 4 MG ORAL Q6H PRN for Nausea & Vomiting Discontinued Reason: Pt stopped taking med Ranitidine Hcl* (Zantac*), 150 MG ORAL TWICE A DAY Discontinued Reason: Pt stopped taking med Objective Data Height (Feet): 5 Height (Inches): 1.00 Weight (Pounds): 199 Natalia Kiser MD Mar 22, 2020 23:17
[2020-03-23] VITALS: BP 158/101
[2020-03-23 04:00] VITALS: BP 146/99
[2020-03-23] MEDS: HYDROcodone/Acetamin 5/325 tab ORAL PRN ×4 (04:59→22:05)
[2020-03-23 08:00] VITALS: BP 139/82
[2020-03-23] MEDS: ALPRAZolam 0.5mg tab ORAL SCH (08:29)
[2020-03-23] MEDS: hydroCHLOROthiazide 12.5mg TAB ORAL SCH (08:30)
[2020-03-23] MEDS: BuPROPion 75mg Tab ORAL SCH (08:30)
[2020-03-23] MEDS: DULoxetine 30mg cap ORAL SCH ×2 (08:30→17:38)
[2020-03-23] MEDS: Methocarbamol 500mg tab ORAL PRN (09:26)
[2020-03-23 12:00] VITALS: BP 130/70
[2020-03-23 16:00] VITALS: BP 128/90
[2020-03-23 20:00] VITALS: BP 142/98
--- NOTE | 2020-03-23 21:35 | General Progress Note ---
Assessment/Plan Problem List: (1) Obesity ICD Codes: E66.9 - Obesity, unspecified SNOMED: 807780335, 657818719 (2) PTSD (post-traumatic stress disorder) ICD Codes: F43.10 - Post-traumatic stress disorder, unspecified SNOMED: 70472414 (3) Multiple sclerosis exacerbation ICD Codes: G35 - Multiple sclerosis SNOMED: 621196188 (4) URI (upper respiratory infection) ICD Codes: J06.9 - Acute upper respiratory infection, unspecified SNOMED: 84773122 (5) Opiate use ICD Codes: F11.90 - Opioid use, unspecified, uncomplicated SNOMED: 916786638 (6) Gastritis ICD Codes: K29.70 - Gastritis, unspecified, without bleeding SNOMED: 4962793 Status: progressing Assessment/Plan: MS exacerbation have consulted dr santana afebridavide pain management in pain obesity Subjective ROS Limited/Unobtainable: Yes Allergies: Coded Allergies: IBUPROFEN (Verified Allergy, Mild, 08/25/18) Objective Last 24 Hour Vital Signs Date Time Temp Pulse Resp B/P (MAP) Pulse Ox O2 Delivery O2 Flow Rate FiO2 03/23/20 18:08 97.2 03/23/20 16:00 97.2 110 20 128/90 (103) 96 03/23/20 12:00 97.0 99 18 130/70 (90) 96 03/23/20 09:00 Room Air 03/23/20 08:30 118 139/82 03/23/20 08:00 97.5 118 20 139/82 (101) 96 03/23/20 04:00 98.6 116 20 146/99 (115) 99 03/23/20 00:00 98.1 111 20 158/101 (120) 94 Intake and Output 03/22/20 03/23/20 19:00 07:00 Intake Total 6000 ml Balance 6000 ml Intake Oral 120 ml IV Total 5880 ml # Voids 3 Height (Feet): 5 Height (Inches): 1.00 Weight (Pounds): 199 Warren Smith MD Mar 23, 2020 21:35
[2020-03-24] MEDS: Methocarbamol 500mg tab ORAL PRN (03:12)
[2020-03-24 08:00] VITALS: BP 142/99
[2020-03-24] MEDS: DULoxetine 30mg cap ORAL SCH (08:16)
[2020-03-24] MEDS: ALPRAZolam 0.5mg tab ORAL SCH (08:16)
[2020-03-24] MEDS: BuPROPion 75mg Tab ORAL SCH (08:17)
[2020-03-24] MEDS: HYDROcodone/Acetamin 5/325 tab ORAL PRN (08:17)
[2020-03-24] MEDS: hydroCHLOROthiazide 12.5mg TAB ORAL SCH (08:17)
--- NOTE | 2020-03-24 11:45 | Consultation ---
History of Present Illness General Date patient seen: Mar 24, 2020 Chief Complaint: Present Illness Allergies: Coded Allergies: IBUPROFEN (Verified Allergy, Mild, 08/25/18) Medication History Scheduled Alprazolam* (Xanax*), 2 MG ORAL DAILY, (Reported) Amlodipine Besylate* (Amlodipine Besylate*), 20 MG ORAL DAILY, (Reported) Bupropion Sr* (Wellbutrin Sr*), 75 MG ORAL TWICE A DAY, (Reported) Duloxetine Hcl* (Cymbalta*), 30 MG ORAL TWICE A DAY, (Reported) Gabapentin* (Gabapentin*), 300 MG ORAL TWICE A DAY, (Reported) Hydrochlorothiazide* (Hydrochlorothiazide*), 12.5 MG ORAL DAILY, (Reported) Scheduled PRN Hydrocodone Bit/Acetaminophen 5-325* ([place] 5-325*), 1 TAB ORAL Q6H PRN for For Pain Zolpidem Tartrate* (Ambien*), 10 MG ORAL HS PRN for INSOMNIA, (Reported) Discontinued Medications Acetaminophen With Codeine (T#3) (Tylenol #3 Tab*), 1 TAB ORAL Q8H PRN for For Pain Discontinued Reason: Pt stopped taking med Amoxicillin* (Amoxil*), 500 MG ORAL THREE TIMES A DAY Discontinued Reason: Pt stopped taking med Baclofen* (Baclofen*), 40 MG ORAL TWICE A DAY, (Reported) Discontinued Reason: Pt stopped taking med Codeine/Promethazine Hcl* (Promethazine-Codeine Syrup*), 5 ML ORAL Q6H PRN for For Cough Discontinued Reason: Pt stopped taking med Cyclobenzaprine Hcl* (Flexeril*), 10 MG ORAL THREE TIMES A DAY Discontinued Reason: Pt stopped taking med Ibuprofen (Motrin), 600 MG ORAL THREE TIMES A DAY Discontinued Reason: Pt stopped taking med Loratadine/Pseudoephedrine (Claritin-D 12 Hour Tablet), 1 TAB ORAL EVERY 12 HOURS Discontinued Reason: Pt stopped taking med Methocarbamol* (Robaxin*), 500 MG PO TID Discontinued Reason: Pt stopped taking med Naproxen* (Naprosyn*), 375 MG ORAL TID Discontinued Reason: Pt stopped taking med Naproxen* (Naproxen*), 500 MG ORAL TWICE A DAY Discontinued Reason: Pt stopped taking med No Known Medications* (NKM - No Known Medications*), 0 ., (Reported) Discontinued Reason: Pt stopped taking med Ondansetron Odt* (Zofran Odt*), 4 MG ORAL Q6H PRN for Nausea & Vomiting Discontinued Reason: Pt stopped taking med Ranitidine Hcl* (Zantac*), 150 MG ORAL TWICE A DAY Discontinued Reason: Pt stopped taking med Patient History Healthcare decision maker Resuscitation status Advanced Directive on File Physical Exam Last 24 Hour Vital Signs Date Time Temp Pulse Resp B/P (MAP) Pulse Ox O2 Delivery O2 Flow Rate FiO2 03/24/20 08:17 113 142/98 03/24/20 08:00 97.7 99 18 142/99 (113) 97 03/23/20 21:00 Room Air 03/23/20 20:00 97.8 113 20 142/98 (113) 98 03/23/20 18:08 97.2 03/23/20 16:00 97.2 110 20 128/90 (103) 96 03/23/20 12:00 97.0 99 18 130/70 (90) 96 Intake and Output 03/23/20 03/24/20 19:00 07:00 Intake Total 1600 ml Balance 1600 ml Intake Oral 1600 ml # Voids 2 Height (Feet): 5 Height (Inches): 1.00 Weight (Pounds): 199 Medications Current Medications Medications (Trade) Dose Ordered Sig/Lulu Route PRN Reason Start Time Stop Time Status Last Admin Dose Admin Acetaminophen/ Hydrocodone Bitart ([place] 5/325) 1 tab Q4H PRN ORAL Severe Pain (Pain Scale 7-10) 03/22/20 14:45 03/29/20 14:44 03/24/20 08:17 Alprazolam (Xanax) 2 mg DAILY ORAL 03/23/20 09:00 03/30/20 08:59 03/24/20 08:16 Amlodipine Besylate (Norvasc) 10 mg DAILY ORAL 03/23/20 09:00 04/22/20 08:59 03/24/20 08:17 Bupropion HCl (Wellbutrin) 75 mg DAILY ORAL 03/23/20 09:00 04/22/20 08:59 03/24/20 08:17 Duloxetine HCl (Cymbalta) 30 mg BID ORAL 03/23/20 09:00 06/21/20 08:59 03/24/20 08:16 Gabapentin (Neurontin) 300 mg THREE TIMES A DAY ORAL 03/22/20 18:00 04/21/20 17:59 03/24/20 08:17 Hydrochlorothiazide (Hydrodiuril) 12.5 mg DAILY ORAL 03/23/20 09:00 04/22/20 08:59 03/24/20 08:17 Methocarbamol (Robaxin) 500 mg Q8H PRN ORAL Muscle Spasm 03/22/20 14:45 04/21/20 14:44 03/24/20 03:12 Zolpidem Tartrate (Ambien) 5 mg HSPRN PRN ORAL Insomnia 03/22/20 20:00 03/29/20 19:59 03/22/20 23:05 Assessment/Plan Assessment/Plan: (1) Multiple Sclerosis (2) Neuropathic pain (3) Morbid Obesity seen dictated Jhonny Patel Mar 24, 2020 11:45
[2020-03-24 12:00] VITALS: BP 134/85
--- NOTE | 2020-03-24 16:30 | Consultation ---
DATE OF CONSULTATION: 03/24/2020 PAIN MANAGEMENT CONSULTATION CONSULTING PHYSICIAN: Jeanie Torres MD. REFERRING PHYSICIAN: Warren Smith MD. PHYSICIAN DIAMOND SORTER: BERNARDINO Person CHIEF COMPLAINT: Generalized body pain. HISTORY OF PRESENT ILLNESS: This is a 34-year-old female who is being seen on the Med/Surg floor of [facility] for initial pain management consultation. The patient was admitted under the care of Dr. Smith due to MS exacerbation, has been having generalized body pain. She was started on [place] 5/325 one tablet every four hours as needed for severe pain as well as Robaxin 500 mg tablet every 8 hours as needed for muscle spasm, gabapentin 600 mg three times a day. She is comfortable at this time and discussed with the patient in depth about opioid usage, dependency, and tolerance and that it would not be recommended with her current condition to be on opiate medication as an outpatient. Due to her pain stemming from a neuropathic issue, recommend the patient to continue on neuropathic pain medications such as gabapentin, possible need for Lyrica if gabapentin is not effective. The patient seems to understand, was advised to continue physical therapy intensively and follow up with her neurologist as an outpatient. The patient seems to understand. PAST MEDICAL HISTORY: Morbid obesity, MS, pancreatitis, hypertension. PAST SURGICAL HISTORY: Cervical fusion. ALLERGIES: Ibuprofen. MEDICATIONS: Xanax, amlodipine, Wellbutrin, Cymbalta, gabapentin, hydrochlorothiazide, [place], and Ambien. SOCIAL HISTORY: She is a smoker of cigarettes, THC, and drinks alcohol. Denies IV drug abuse. REVIEW OF SYSTEMS: Denies rash, fever, chills, sweating, dizziness, drowsiness, blurred vision, sore throat, or change in weight. No shortness of breath or chest pain. No nausea, vomiting, diarrhea, blood in the stool or urine. No dysuria. PHYSICAL EXAMINATION: GENERAL: Alert, awake, and oriented. VITAL SIGNS: Blood pressure 142/99, heart rate 113, oxygen saturation 97%, respiratory rate 18, temperature 97 degrees Fahrenheit. HEENT: PERRLA. NECK: Range of motion of decreased due to patient's condition. LUNGS: Decreased breath sounds bilaterally. HEART: S1 and S2 regular. ABDOMEN: Obese. BACK: Range of motion is decreased on flexion and extension. EXTREMITIES: Upper and lower extremity range of motion is decreased due to patient's condition. No cyanosis. No clubbing. Sensory is reduced. Reflexes are not obtainable. No adenopathy. ASSESSMENT AND PLAN: This is a 34-year-old female with multiple sclerosis, neuropathic pain, morbid obesity. The patient will be continued on [place] here in the hospital. A prescription for Robaxin and Neurontin was written for the patient in anticipation for discharge. She was advised to follow up with her neurologist as well as continue extensive physical therapy on discharge. The patient was discussed with Dr. Torres and Dr. Torres concurred. We will follow the patient. Thank you very much for the courtesy of this consultation. Jeanie Torres M.D. BERNARDINO Person DR: Tigre JOB#: [id number] CC: DANIEL
--- NOTE | 2020-03-25 16:15 | History and Physical Report ---
DATE OF ADMISSION: 03/22/2020 HISTORY OF PRESENT ILLNESS: The patient comes in, admitted for MS exacerbation. The patient had the same presentation in January, got was discharged. There is nothing acute. The patient complains of diffuse body achiness, worsening lower extremity, cannot ambulate, also upper respiratory symptoms after positive COVID exposure to a person in grocery store. The patient was admitted from MS exacerbation. The patient again not January of this year, got after 3 days. According to the ER doctor, COVID negative. The patient denies shortness of breath. Denies nausea, vomiting, or diarrhea. Denies fever or chills. PAST MEDICAL HISTORY: Significant for multiple sclerosis, hypertension, anxiety, insomnia. The patient also has a history of PTSD and depression. PAST SURGICAL HISTORY: History of cervical radiculopathy. ALLERGIES: To ibuprofen. MEDICATIONS: Xanax, amlodipine, albuterol, Cymbalta, gabapentin, hydrochlorothiazide, Norvasc, Ambien. FAMILY HISTORY: Noncontributory. SOCIAL HISTORY: Denies history of smoking. No history of alcohol or illicit drugs. REVIEW OF SYSTEMS: HEENT: Denies headaches. RESPIRATORY: Denies shortness of breath. Denies cough. CARDIOVASCULAR: Denies chest pain. GASTROINTESTINAL: Denies nausea, vomiting, or diarrhea. EXTREMITIES: The patient has pain and weakness especially in the lower extremities, cannot ambulate. CENTRAL NERVOUS SYSTEM: Denies change in speech pattern, but cannot ambulate. This has been going on for a while. PHYSICAL EXAMINATION: VITAL SIGNS: Temperature is 98.4, pulse is 94, blood pressure 134/84. HEENT: PERRLA. CHEST: Clear to auscultation. CARDIOVASCULAR: Regular rate and rhythm. No murmurs or extra sounds. GASTROINTESTINAL: Soft, nontender. No organomegaly. EXTREMITIES: A 1+ edema. For skin integrity, please refer to the nursing notes. The patient has lower extremity weakness, unable to ambulate. Dorsal pedis pulses are present. LABORATORY DATA: WBC of 7.5, hemoglobin 11.1, platelets of 401. Sodium 136, potassium 4.2, BUN of 9, creatinine of 1. ASSESSMENT/PLAN: The patient was admitted for multiple sclerosis exacerbation. I have consulted Dr. Kamara, Dr. Kiser, and Dr. Carlos Vidal and Dr. Torres. Dr. Flores was also consulted but he said that he cannot see the patient over the weekend, so I consulted Dr. Kamara for the MS exacerbation treatment. Warren Smith M.D. DR: Jose JOB#: [id number] CC:
--- NOTE | 2020-03-26 01:15 | Progress Note ---
DATE: 03/24/2020 SUBJECTIVE: The patient is in bed, complaining of anxiety, restlessness, difficulty sleeping. She also is having a history of depression and takes Xanax and Cymbalta. MENTAL STATUS EXAMINATION: Alert, oriented times self, place, situation. Mood is anxious. Affect is constricted, congruent with mood. Thought process is concrete. Thought content, no suicidal or homicidal ideation. Cognition is intact. Insight and judgment is fair. ASSESSMENT: 1. Anxiety disorder. 2. MS exacerbation. 3. Major depressive disorder. PLAN: 1. Continue Cymbalta. Continue the Xanax. 2. Provide the patient with reality orientation and supportive therapy. We will continue to follow and readjust the medications. Natalia Kiser M.D. DR: BLAIR JOB#: [id number] CC:
--- NOTE | 2020-03-27 20:41 | Discharge Summary ---
Discharge Summary Discharge Summary _ DATE OF ADMISSION: 03/22/2020 DATE OF DISCHARGE: 03/24/2020 DISCHARGED BY: Dr. Warren Feliciano CONSULTANTS: Dr. Natalia Torres BRIEF HOSPITAL COURSE: Patient is a 34-year-old -[place] female, with past medical history of MS (diagnosed at [facility] in May 2019), posttraumatic stress disorder, depression, presented to ED with complaints of "it feels like I am having an MS flare". Patient stated she was unable to ambulate and felt like previous MS episode when she was hospitalized in January 2020. She denied trauma or recent fall, IV drug use or bowel and bladder incontinence. She endorsed dysuria and URI symptoms. She stated 3 days ago she was in a grocery store and was exposed to possible COVID 19 patients. Since that time she developed dry cough, myalgia , fatigue and fever. Temperature at home was 100.4. She took Tylenol with some relief. Patient symptom had gradual onset, severity was moderate, duration was 3 days. Upon evaluation at ED, patient was nontoxic and well-appearing. There was no significant shortness of breath. No evidence of respiratory distress. Neurologic examination demonstrates global weakness without focal findings. No saddle anesthesia. Patient was barely able to ambulate with a walker. There was no evidence of ENT emergency, airway was patent. Patient was tolerating oral liquids and solids. No stridor or difficulty breathing. Rapid COVID-19 testing was negative. Chest x-ray did not show acute cardiopulmonary disease. EKG showed normal sinus rhythm. Patient was given IV Solu-Medrol and Rocephin. Patient was admitted for possible MS flare. Patient was admitted to medical floor. She was continued on home medications. Pain management was consulted. She was given Mingus, Robaxin and gabapentin. Discussion about outpatient usage use of opioid was done. Not recommended to be on opiate medication as an outpatient. Recommend to continue neuropathic pain medications. She was continued on Cymbalta and Xanax for anxiety disorder. Patient was eventually cleared for discharge home. FINAL DIAGNOSES: Multiple sclerosis exacerbation Anxiety disorder DISPOSITION: Patient was discharged home. DISCHARGE MEDICATIONS: Refer to Discharge Medication List. DISCHARGE INSTRUCTIONS: Follow-up with PCP in a week. I have been assigned to complete a discharge summary on this account, I was not involved with the patient's management.--TERI Shettyo,Mariangel Edward INTERVENTION MANAGER Mar 27, 2020 20:41
== END 2020-03-24 15:42 | disposition home or self-care (01) | DRG 43 ==
LOC: EMR 08:43 → 3E 09:23 → EDBEDREQ 10:15
DX: G35 Multiple sclerosis (principal); F43.10 Post-traumatic stress disorder, unspecified; Z68.37 Body mass index [BMI] 37.0-37.9, adult; E66.01 Morbid (severe) obesity due to excess calories; J06.9 Acute upper respiratory infection, unspecified; F11.90 Opioid use, unspecified, uncomplicated; K29.70 Gastritis, unspecified, without bleeding; Z88.6 Allergy status to analgesic agent; G62.9 Polyneuropathy, unspecified; Z98.1 Arthrodesis status; F17.200 Nicotine dependence, unspecified, uncomplicated; F41.9 Anxiety disorder, unspecified; F32.9 Major depressive disorder, single episode, unspecified
CPT/HCPCS: 36415; 71045; 80053; 81003; 82550; 82553; 83605; 83690; 83735; 84100; 84443; 84484; 84702; 85025; 87040; 93005; 96361; 96365; 96367; 96375; 99285; J2405; J7030; U0002